=== PATIENT | male | born 1980 | race African-American/Black ===

== ENCOUNTER 2019-11-07 18:17 | Inpatient (IN) ==
[2019-11-07] MEDS ORDERED: SODIUM CHLORIDE 0.9% 1000ML 500 ML IV ONE (18:25)
[2019-11-07] MEDS ORDERED: ONDANSETRON INJ 2 MG/ML 2 ML VIAL IV STA (18:25)
[2019-11-07] MEDS ORDERED: HEPARIN (PORCINE) 1000 UNIT/ML 10 ML (CATH LAB USE ONLY) ONE (18:26)
[2019-11-07] MEDS ORDERED: NiCARDipine HCL INJ 2.5 MG/ML 10 ML AMP ONE (18:26)
[2019-11-07] MEDS ORDERED: fentaNYL citrate 100 MCG/2 ML VIAL ONE (18:26)
[2019-11-07] MEDS ORDERED: MIDAZOLAM HCL 1 MG/ML 2ML VIAL ONE (18:27)
[2019-11-07 18:37] LABS: Basophils # (auto) 0.02 K/uL (0-0.2); Basophils % (auto) 0.1 %; Eosinophils # (auto) 0.02 K/uL (0-0.5); Eosinophils % (auto) 0.1 %; Hemoglobin 16.9 g/dL (14.0-18.0); Immature Granulocytes # (auto) 0.06 K/uL (0.00-0.02); Immature Granulocytes % (auto) 0.4 %; Lymphocytes # (auto) 1.51 K/uL (1.2-3.4); Lymphocytes % (auto) 9.2 %; Mean Corpuscular Hgb Conc 35.2 g/dL (32-36); Mean Corpuscular Volume 85.1 fL (80-100); Mean Platelet Volume 9.9 fL (7.4-10.4); Monocytes # (auto) 1.97 K/uL (0.11-0.59); Neutrophils # (auto) 12.88 K/uL (1.4-6.5); Neutrophils % (auto) 78.2 %; Platelet Count 277 K/uL (130-400); RDW Coefficient of Variation 12.5 % (11.5-14.5); RDW Standard Deviation 38.5 fL (36.4-46.3); Red Blood Count 5.64 M/uL (4.7-6.1); White Blood Count 16.46 K/uL (4.8-10.8)
--- NOTE | 2019-11-07 18:40 | Emergency Department Note ---
Entered by Maci Thomas acting as a scribe for History of Present Illness General Chief complaint: Heart Alert Stated complaint: HEART ALERT Source: patient and EMS History of Present Illness Onset (ago): hour(s) (just prior to arrival) Location: head (general) Pain Consistency: + other (episode ) Quality: + other (syncope ) Associated symptoms: + diaphoresis, + nausea/vomiting (positive nausea; negative vomiting) and + other (positive dizziness; positive right lower abdominal pain; positive thirsty) Treatments prior to arrival: aspirin The patient is a 39 year old male who presents to the Emergency Room with complaints of an episode of syncope that occurred just prior to arrival. The patient states that he was standing in line when he began to feel dizzy and nauseous just prior to this episode. The patient states that he was sweating at the time of this episode. He reports having persistent right lower abdominal pain over the past 3 days. The patient rates this at a 2/10 currently and states that nothing relieves or exacerbates his pain. He denies chest pain and shortness of breath prior to, during, or after his episode of syncope. Per EMS, the patient's blood pressure was 74/P but state that during transport his blood pressure has been around 100 systolic. EMS reports that the patient received 324mg of Aspirin just prior to arrival. The patient states that he is currently very thirsty. Home Medications Home Medications Medication Instructions Recorded Confirmed Type aspirin [Aspir-81] 81 mg PO DAILY 11/07/19 11/07/19 History atorvastatin 80 mg PO HS 11/07/19 11/07/19 History clopidogrel [Plavix] 75 mg PO DAILY 11/07/19 11/07/19 History metoprolol tartrate 25 mg PO BID 11/07/19 11/07/19 History Allergies Allergy/AdvReac Type Severity Reaction Status Date / Time No Known Allergies Allergy Unverified 11/07/19 19:28 Past Med/Surg History Medical History (Updated 11/07/19 @ 20:08 by Maci Thomas) Abnormal EKG (Acute) Acute anterior wall CT (Acute) Acute CT, lateral wall (Acute) Chest pain (Acute) Elevated troponin (Acute) Surgical History H/O cardiac catheterization Hx of heart artery stent Social History Preferred Language: [place] Citizen Communication Ability: Effective Manufacturing Director Required: No Beliefs That Will Affect Care: None Current Living Situation: Other Current Living Situation Comment: [facility] Other Information That Helps Us Care for You: No Feels Safe at Home: Yes Safety Concerns: Feels Safe At This Time Smoking Status: Never smoker Hx Alcohol Use: No Hx Substance Use: No Review of Systems See HPI for pertinent positives & negatives. and A total of 10 systems reviewed and were otherwise negative Physical Exam Vital Signs Vital Signs - 24 hr 11/07/19 18:26 11/07/19 18:27 11/07/19 18:30 Temperature 37.4 C Temperature Source Oral Pulse Rate 79 78 82 Pulse Rate [Finger] Pulse Rate from SpO2 Sensor 79 83 Pulse Strength Normal Respiratory Rate 25 H 20 15 Respiratory Effort / Characteristics Non-Labored Respiratory Depth Normal Blood Pressure 112/84 112/84 Blood Pressure [Right Arm] Blood Pressure Mean 93 95 Blood Pressure Mean [Right Arm] Blood Pressure Position Sitting Pulse Oximetry 99 98 99 Oxygen Delivery Method Room Air Room Air Room Air Sepsis Recent Fever Within 48 Hours No Sepsis Action Taken by Nursing No Action Required 11/07/19 18:31 11/07/19 18:41 11/07/19 18:51 Temperature Temperature Source Pulse Rate 71 64 66 Pulse Rate [Finger] Pulse Rate from SpO2 Sensor 73 63 Pulse Strength Respiratory Rate 14 14 12 Respiratory Effort / Characteristics Respiratory Depth Blood Pressure Blood Pressure [Right Arm] Blood Pressure Mean Blood Pressure Mean [Right Arm] Blood Pressure Position Pulse Oximetry 100 98 Oxygen Delivery Method Room Air Room Air Room Air Sepsis Recent Fever Within 48 Hours Sepsis Action Taken by Nursing 11/07/19 18:52 11/07/19 19:00 11/07/19 19:01 Temperature Temperature Source Pulse Rate 68 70 73 Pulse Rate [Finger] Pulse Rate from SpO2 Sensor 68 66 70 Pulse Strength Respiratory Rate 13 16 13 Respiratory Effort / Characteristics Respiratory Depth Blood Pressure 135/84 132/91 Blood Pressure [Right Arm] Blood Pressure Mean 94 102 Blood Pressure Mean [Right Arm] Blood Pressure Position Pulse Oximetry 100 100 100 Oxygen Delivery Method Room Air Room Air Room Air Sepsis Recent Fever Within 48 Hours Sepsis Action Taken by Nursing 11/07/19 19:36 11/07/19 20:20 Temperature Temperature Source Pulse Rate Pulse Rate [Finger] 77 76 Pulse Rate from SpO2 Sensor Pulse Strength Respiratory Rate 17 16 Respiratory Effort / Characteristics Respiratory Depth Blood Pressure Blood Pressure [Right Arm] 140/80 125/74 Blood Pressure Mean Blood Pressure Mean [Right Arm] 100 91 Blood Pressure Position Pulse Oximetry 99 99 Oxygen Delivery Method Room Air Room Air Sepsis Recent Fever Within 48 Hours Sepsis Action Taken by Nursing GENERAL: Patient is in no acute distress. HEENT: No acute trauma, normocephalic atraumatic, mucous membranes dry, no nasal congestion, no scleral icterus. NECK: No stridor, no adenopathy, no meningismus, trachea is midline. LUNGS: Clear to auscultation bilaterally, no wheeze, no rhonchi, breath sounds equal. HEART: Without murmurs gallops or rubs, regular rate and rhythm. ABDOMEN: Soft, nontender, bowel sounds positive, no hernias, no peritonitis. EXTREMITIES: No cyanosis or edema, full range of motion of all the joints without pain or difficulty, no signs for acute trauma. NEUROLOGIC: Oriented x 3, no acute motor or sensory deficits, no focal weakness. SKIN: No rash, no jaundice, no diaphoresis. Course Course 1811: I discussed the case with Dr. Tate, after picking up the command call, who states that he will come evaluate the patient upon his arrival. 1816: Past medical records reviewed. The patient was evaluated in room A1. A complete history and physical exam was performed. The patient was seen in the ED on 10/30/19 but was transferred to [facility] as our laborer starch factory was not operable. The patient was diagnosed with an acute CT while here. 1825: I discussed the case with Dr. Tate who recommends keeping the patient in the hospital overnight to observe and trend his enzymes. He states that the patient is not a candidate for the laborer starch factory currently. 1954: I discussed the case with Dr. Tate who recommends anticoagulation. 1999: I talked to the patient and updated him on the plan. The guards at bedside are aware that the patient will be staying in the hospital for further ev aluation. 2008[facility]. 2099: I [facility] who [facility] the patient for further evaluation. Administered Medications Heparin Sodium/Dextrose (Heparin Sodium/Dextrose) 25,000 units in 500 mls @ 33 mls/hr IV .[id number] JULES; Protocol Stop: 12/07/19 19:59 Last Titration: 11/07/19 23:00 Dose: 1,650 units/hr, 33 mls/hr Documented by: [id number] Cosigned by: [id number] Admin: 11/07/19 20:12 Dose: 1,650 units/hr, 33 mls/hr Documented by: [id number] Cosigned by: [id number] Ioversol (Optiray 320 100ml) 94 ml IV ONCE PRN PRN Reason: Interaction Checking Stop: 11/11/19 19:28 Last Admin: 11/07/19 19:29 Dose: 94 ml Documented by: [id number] Discontinued Medications Fentanyl Citrate (Fentanyl Citrate) Confirm Administered Dose 100 mcg .ROUTE .STK-MED ONE Stop: 11/07/19 18:27 Last Admin: 11/07/19 18:44 Dose: Not Given Documented by: [id number] Heparin Sodium (Porcine) (Heparin Iv Bolus ([facility] Use Only)) Confirm Administered Dose 10,000 units .ROUTE .STK-MED ONE Stop: 11/07/19 18:27 Last Admin: 11/07/19 18:44 Dose: Not Given Documented by: [id number] Heparin Sodium (Porcine) (Heparin Iv Bolus) Confirm Administered Dose 10,000 units .ROUTE .STK-MED ONE Stop: 11/07/19 20:04 Last Admin: 11/07/19 20:16 Dose: 7,000 units Documented by: [id number] Cosigned by: [id number] Heparin Sodium/Dextrose () 1 ea IV NOW STA; Protocol Stop: 11/07/19 19:56 Last Admin: 11/07/19 20:45 Dose: Not Given Documented by: [id number] Sodium Chloride (Nss 1000ml) 500 mls @ 999 mls/hr IV .Q31M ONE Stop: 11/07/19 18:55 Last Infusion: 11/07/19 19:20 Dose: 0 mls/hr Documented by: [id number] Admin: 11/07/19 18:43 Dose: 999 mls/hr Documented by: [id number] Midazolam HCl (Versed) Confirm Administered Dose 2 mg .ROUTE .STK-MED ONE Stop: 11/07/19 18:28 Last Admin: 11/07/19 18:44 Dose: Not Given Documented by: [id number] Morphine Sulfate (Morphine Sulfate) 4 mg IV NOW STA Stop: 11/07/19 20:41 Last Admin: 11/07/19 20:44 Dose: 4 mg Documented by: [id number] Nicardipine HCl (Cardene) Confirm Administered Dose 25 mg .ROUTE .STK-MED ONE Stop: 11/07/19 18:27 Last Admin: 11/07/19 18:44 Dose: Not Given Documented by: [id number] Ondansetron HCl (Zofran) 4 mg IV NOW STA Stop: 11/07/19 18:26 Last Admin: 11/07/19 18:43 Dose: 4 mg Documented by: [id number] Critical Care Time Critical Care Time: Yes Total Critical Care Time: 46 I have personally spent 46 minutes of critical care time in the direct management of this patient. This includes bedside care, interpretation of diagnostic studies, and testing, discussion with consultants, patient, and family members, and other required patient management activities. This 46 minutes is in excess of all separately billable procedures. Medical Decision Making Differential Diagnosis Differential diagnoses include dehydration, CT, angina, electrolyte imbalance, anemia, dysrhythmia, infection, and others were considered. Medical Records Attestation: I reviewed the patient's medical records. Home Medications Current Medication List: was personally reviewed by me Laboratory Data Attestation: I reviewed the patient's lab results. Result diagrams: 11/07/19 18:29 11/07/19 18:28 Lab Results 11/07/19 11/07/19 11/07/19 Range/Units 18:28 18:28 18:29 WBC 16.46 H (4.8-10.8) K/uL RBC 5.64 (4.7-6.1) M/uL Hgb 16.9 (14.0-18.0) g/dL POC Hgb (14.0-18.0) g/dl Hct 48.0 (42-52) % POC Hct (42-52) % MCV 85.1 (80-100) fL MCH 30.0 (25-34) pg MCHC 35.2 (32-36) g/dL RDW Std Deviation 38.5 (36.4-46.3) fL RDW Coeff of Nic 12.5 (11.5-14.5) % Plt Count 277 (130-400) K/uL MPV 9.9 (7.4-10.4) fL Immature Gran % (Auto) 0.4 % Neut % (Auto) 78.2 % Lymph % (Auto) 9.2 % [place] % (Auto) 12.0 % Eos % (Auto) 0.1 % Baso % (Auto) 0.1 % Immature Gran # (Auto) 0.06 H (0.00-0.02) K/uL Neut # (Auto) 12.88 H (1.4-6.5) K/uL Lymph # (Auto) 1.51 (1.2-3.4) K/uL [place] # (Auto) 1.97 H (0.11-0.59) K/uL Eos # (Auto) 0.02 (0-0.5) K/uL Baso # (Auto) 0.02 (0-0.2) K/uL PT 10.7 (9.0-12.0) Seconds INR 1.0 (0.9-1.1) APTT 21.9 (21.0-31.0) Seconds PTT Ratio 0.8 POC Sodium (135-144) mEq/L Sodium 135 L (136-145) mmol/L POC Potassium (3.3-5.0) mEq/L Potassium 4.0 (3.5-5.1) mmol/L POC Chloride (101-112) mEq/L Chloride 101 (98-107) mmol/L Carbon Dioxide 27 (21-32) mmol/L POC Total CO2 (24-31) mEq/l Anion Gap 7.0 (3-11) POC Anion Gap (16-25) mmol/L POC BUN (7-18) mg/dl BUN 11 (7-18) mg/dl Creatinine 1.17 (0.6-1.4) mg/dl POC Creatinine (0.6-1.3) mg/dl Est Cr Clr Drug Dosing 113.3 ml/min Est GFR ( Amer) 91.8 Est GFR (Non-Af Amer) 79.2 BUN/Creatinine Ratio 9.4 L (10-20) Glucose 104 H (70-99) mg/dl POC Glucose (other) (70-99) mg/dl Calcium 9.2 (8.5-10.1) mg/dl POC Ioniz Calcium Zully (1.12-1.32) mmol/l Magnesium 2.3 (1.8-2.4) mg/dl Total Bilirubin 2.7 H (0.2-1) mg/dl AST 199 H (15-37) U/L ALT 138 H (12-78) U/L Alkaline Phosphatase 81 (45-117) U/L POC Troponin I (0-0.045) ng/ml Troponin I 1.030 H* (0-0.045) ng/ml Total Protein 8.0 (6.4-8.2) gm/dl Albumin 4.0 (3.4-5.0) gm/dl Globulin 4.0 (2.5-4.0) gm/dl Albumin/Globulin Ratio 1.0 (0.9-2) Lipase 123 (73-393) U/L 11/07/19 11/07/19 Range/Units 18:32 18:33 WBC (4.8-10.8) K/uL RBC (4.7-6.1) M/uL Hgb (14.0-18.0) g/dL POC Hgb 16.7 (14.0-18.0) g/dl Hct (42-52) % POC Hct 49 (42-52) % MCV (80-100) fL MCH (25-34) pg MCHC (32-36) g/dL RDW Std Deviation (36.4-46.3) fL RDW Coeff of Nic (11.5-14.5) % Plt Count (130-400) K/uL MPV (7.4-10.4) fL Immature Gran % (Auto) % Neut % (Auto) % Lymph % (Auto) % [place] % (Auto) % Eos % (Auto) % Baso % (Auto) % Immature Gran # (Auto) (0.00-0.02) K/uL Neut # (Auto) (1.4-6.5) K/uL Lymph # (Auto) (1.2-3.4) K/uL [place] # (Auto) (0.11-0.59) K/uL Eos # (Auto) (0-0.5) K/uL Baso # (Auto) (0-0.2) K/uL PT (9.0-12.0) Seconds INR (0.9-1.1) APTT (21.0-31.0) Seconds PTT Ratio POC Sodium 136 (135-144) mEq/L Sodium (136-145) mmol/L POC Potassium 4.0 (3.3-5.0) mEq/L Potassium (3.5-5.1) mmol/L POC Chloride 98 L (101-112) mEq/L Chloride (98-107) mmol/L Carbon Dioxide (21-32) mmol/L POC Total CO2 26 (24-31) mEq/l Anion Gap (3-11) POC Anion Gap 17.0 (16-25) mmol/L POC BUN 11 (7-18) mg/dl BUN (7-18) mg/dl Creatinine (0.6-1.4) mg/dl POC Creatinine 1.0 (0.6-1.3) mg/dl Est Cr Clr Drug Dosing ml/min Est GFR ( Amer) Est GFR (Non-Af Amer) BUN/Creatinine Ratio (10-20) Glucose (70-99) mg/dl POC Glucose (other) 105 H (70-99) mg/dl Calcium (8.5-10.1) mg/dl POC Ioniz Calcium Zully 1.14 (1.12-1.32) mmol/l Magnesium (1.8-2.4) mg/dl Total Bilirubin (0.2-1) mg/dl AST (15-37) U/L ALT (12-78) U/L Alkaline Phosphatase (45-117) U/L POC Troponin I 1.14 H (0-0.045) ng/ml Troponin I (0-0.045) ng/ml Total Protein (6.4-8.2) gm/dl Albumin (3.4-5.0) gm/dl Globulin (2.5-4.0) gm/dl Albumin/Globulin Ratio (0.9-2) Lipase (73-393) U/L Imaging Data Radiologist's Impression: Radiology results as stated below per my review and the radiologist's interpretation: XR chest 1V portable CLINICAL HISTORY: Chest Pain dyspnea COMPARISON STUDY: 10/30/2019 FINDINGS: Improved aeration left lung base. Minimal residual interstitial prominence. Lungs otherwise appear clear. Diaphragms are smooth. IMPRESSION: Improving left basilar infiltrate with minimal residual. ACT 112: Negative or not required by law. The above report was generated using voice recognition software. It may contain grammatical, syntax or spelling errors. Electronically signed by: Varun Preciado M.D. 11/07/2019 6:41 PM [address]EN AND PELVIS CT WITH IV CONTRAST CT DOSE: 955.85 mGy.cm HISTORY: Right lower quadrant pain. TECHNIQUE: Multiaxial CT images of the abdomen and pelvis were performed following the use of intravenous contrast. A dose lowering technique was utilized adhering to the principles of ALARA. COMPARISON STUDY: None. FINDINGS: The lung bases are clear. No pneumoperitoneum. No pneumatosis. No suspicious lytic are blastic osseous lesions. Subendocardial hypodensity within the left ventricular apex consistent with an old myocardial infarct. There are 2 small hypodense filling defects within the apex of the left ventricle which measure 1 cm. These are consistent with 2 cm and 1 cm. These are consistent with areas of thrombus. The liver, gallbladder, pancreas, spleen, adrenal glands, and left kidney are unremarkable. Wedge-shaped hypodensity within the upper pole of the right kidney consistent with a renal infarct. The renal arteries and veins appear patent. Normal caliber abdominal aorta with no evidence for dissection. The bladder is unremarkable. No pelvic free fluid. No bowel wall thickening or o bstruction. Normal appendix. IMPRESSION: 1. There are 2 filling defects seen within the apex of the left ventricle consistent with thrombus. 2. There is an infarct within the upper pole of the right kidney which is likely secondary to an embolus given the left ventricular thrombus. 3. Subacute endocardial hypodensity within the left ventricular apex suggestive of an old myocardial infarct. ACT 112: Negative or not required by law. Electronically signed by: Bobby Adams M.D. 11/07/2019 7:47 PM ECG Data Attestation: I personally reviewed and interpreted this ECG as follows: Indication: + abdominal pain Rate (beats per minute): 73 Rhythm: + normal sinus ECG Intervals/blocks: + Normal QT-c (381) ECG ST segments: + ST elevation (anterior leads) ECG Findings: + Q waves (anterior leads) and + Other (no reciprocal changes); no PVCs Blood Pressure Blood Pressure Findings: Elevated blood pressure Blood Pressure Disposition: further management by hospitalist [facility] Narrative There is a moderate leukocytosis at 16,000, this could be consistent with infection or just his syncopal event. No anemia. He has a normal platelet count. No coagulopathy. No significant electrolyte abnormality or kidney janet lure. There were a few liver enzyme elevations. Troponin was elevated at 1.030. This could be consistent with a new CT or his recent CT. Cardiac enzyme trending is necessary. Lipase testing returned negative. Chest film does not show CHF, there was no significant mediastinal widening. Abdominal and pelvis CT shows a right renal infarct as well as a clot within the left ventricle. There is no acute surgical process by CT imaging. The patient was in no significant distress. His biggest complaint was that he was thirsty. He did say he had noticed some right lower quadrant abdominal pain that was minimal in severity over the last few days. The patient received IV saline, he was given a 500 cc saline bolus. He was given IV Zofran for nausea. He was given a bolus of heparin and then placed on a heparin drip. A prehospital heart alert was called based on the initial EKG. After talking with the patient, after discussing things with the on-call automotive service porter, the patient was not felt in need of transfer to the [facility]. The findings on EKG were felt secondary to the recent CT, not a new/acute CT. I did discuss the case with cardiology after the findings of the left ventricu lar clot were noted. IV heparin was suggested. The patient requires a hospital stay. I spoke to the patient and the [facility] guards. Case management has been involved. The on-call hospitalist was c onsulted. Of note, the patient was initially hypotensive prehospital, his blood pressure has been adequate during his ED stay. Impression & Plan Hypotension, Syncope, Left ventricular thrombus, Renal infarct Discharge Plan Visit Data *Final* Discharge Date/Time: 11/07/19 22:15 Chief Complaint: Heart Alert Stated Complaint: HEART ALERT ED Provider: Brian Rockwell Discharge Problem: Hypotension, Syncope, Left ventricular thrombus, Renal infarct Patient Disposition: Admitted As Inpatient Discharge Instructions Interventions: ED Discharge Assessment Last Done: 11/07/19 22:15 Discharge Problem: Hypotension Qualifiers: Hypotension type: unspecified hypotension type Qualified Code(s): I95.9 - Hypotension, unspecified Syncope Qualifiers: Syncope type: unspecified Qualified Code(s): R55 - Syncope and collapse The scribe's documentation has been prepared under my direction and personally reviewed by me in its entirety. I confirm that the note above accurately reflects all work, treatment, procedures, and medical decision making performed by me.
--- NOTE | 2019-11-07 18:43 | XRay Report ---
XR chest 1V portable CLINICAL HISTORY: Chest Pain dyspnea COMPARISON STUDY: 10/30/2019 FINDINGS: Improved aeration left lung base. Minimal residual interstitial prominence. Lungs otherwise appear clear. Diaphragms are smooth. IMPRESSION: Improving left basilar infiltrate with minimal residual. ACT 112: Negative or not required by law. The above report was generated using voice recognition software. It may contain grammatical, syntax or spelling errors. Electronically signed by: Varun Preciado M.D. 11/07/2019 6:41 PM
[2019-11-07 18:48] LABS: Partial Thromboplastin Ratio 0.8; Partial Thromboplastin Time 21.9 Seconds (21.0-31.0); Prothrombin Time 10.7 Seconds (9.0-12.0)
[2019-11-07 18:48] LABS: iSTAT Hemoglobin 16.7 g/dl (14.0-18.0); iSTAT Ionized Calcium 1.14 mmol/l (1.12-1.32)
[2019-11-07 18:55] LABS: BUN Creatinine Ratio 9.4 (10-20); Calcium 9.2 mg/dl (8.5-10.1); Creatinine Clr Calc Pharmacy 113.3 ml/min; Est GFR (African American) 91.8; Est GFR (Non-African American) 79.2; Magnesium 2.3 mg/dl (1.8-2.4)
[2019-11-07 19:00] LABS: Bilirubin,Total 2.7 mg/dl (0.2-1); Troponin I 1.03 ng/ml (0-0.045)
[2019-11-07] MEDS ORDERED: IOVERSOL 100ml IV PRN (19:29)
--- NOTE | 2019-11-07 19:49 | CT Scan Report ---
ABDOMEN AND PELVIS CT WITH IV CONTRAST CT DOSE: 955.85 mGy.cm HISTORY: Right lower quadrant pain. TECHNIQUE: Multiaxial CT images of the abdomen and pelvis were performed following the use of intrave nous contrast. A dose lowering technique was utilized adhering to the principles of ALARA. COMPARISON STUDY: None. FINDINGS: The lung bases are clear. No pneumoperitoneum. No pneumatosis. No suspicious lytic are lit tic osseous lesions. Subendocardial hypodensity within the left ventricular apex consistent with an o ld myocardial infarct. There are 2 small hypodense filling defects within the apex of the left ventri villa which measure 1 cm. These are consistent with 2 cm and 1 cm. These are consistent with areas of t hrombus. The liver, gallbladder, pancreas, spleen, adrenal glands, and left kidney are unremarkable. Wedge-shaped hypodensity within the upper pole of the right kidney consistent with a renal infarct. T he renal arteries and veins appear patent. Normal caliber abdominal aorta with no evidence for dissec tion. The bladder is unremarkable. No pelvic free fluid. No bowel wall thickening or obstruction. Nor mal appendix. IMPRESSION: 1. There are 2 filling defects seen within the apex of the left ventricle consistent with thrombus. 2. There is an infarct within the upper pole of the right kidney which is likely secondary to an embo phillip given the left ventricular thrombus. 3. Subacute endocardial hypodensity within the left ventricular apex suggestive of an old myocardial infarct. ACT 112: Negative or not required by law. Electronically signed by: Bobby Adams M.D. 11/07/2019 7:47 PM
[2019-11-07] MEDS ORDERED: HEPARIN SOD (PORCINE) 1000 UNIT/ML 10 ML VIAL ONE (20:03)
[2019-11-07] MEDS: HEPARIN SODIUM/DEXTROSE 25,000 UNITS/500 ML BAG IV SCH (20:12)
[2019-11-07] MEDS ORDERED: MoRPHine SULFATE 4 MG/ML 1 ML CARP\\VIAL IV STA (20:40)
[2019-11-07] MEDS ORDERED: POLYETHYLENE (MIRALAX) 17 GM PACK PO PRN (22:37)
[2019-11-07] MEDS: METOPROLOL TARTRATE 25 MG TAB PO SCH (23:55)
[2019-11-07] MEDS: ACETAMINOPHEN 325 MG TAB PO PRN ×2 (23:56→23:57)
[2019-11-08] MEDS ORDERED: SODIUM CHLORIDE 0.9% 1000ML 1,000 ML IV SCH (00:45)
--- NOTE | 2019-11-08 00:46 | History & Physical Report ---
Date of Service November 08, 2019 Assessment & Plan (1) Left ventricular thrombus: 39-year-old male with a recent anterior wall CO presents to the hospital following a syncopal episode and was incidentally found to have right renal infarct likely secondary to emboli from a left ventricular thrombus. On arrival to the emergency room, the patient was found to have ST elevations with Q waves in the anterior lateral leads and elevated troponin at 1.03. Heart alert was called. The patient was evaluated by Dr. Alarcon who thought that the EKG represented chronic changes from his CO. The original plan was to admit the patient on observation and continue to trend troponin, but the patient was also complaining of right lower quadrant pain and the emergency room physician obtained a CT scan of the abdomen/chest. CT scan showed infarction of the right kidney and a left ventricular thrombus. Patient was started on IV heparin. The thrombus is thought to be secondary to recent CO. Patient also has a mild fever and leukocytosis in the setting of viral GI symptoms. Left ventricular thrombus status post recent CO Patient started IV heparin to prevent further embolic events We will hold off on echocardiogram since the thrombus is clearly evident on CT, although it is reasonable to assess in the setting of syncope recent CO. Will defer to day team Cardiology consulted, appreciate recommendations Renal infarct IV heparin as above, follow BMP Recent CO Continue clopidogrel, simvastatin, metoprolol and aspirin Continue to trend troponin Syncopal episode Syncopal episode was likely related to dehydration in the setting of viral symptoms Received 500 cc bolus in the ED, continue maintenance rate of 100 cc/h Transaminitis We will obtain hepatitis panel, HIV testing Consider right upper quadrant ultrasound to rule out gallbladder pathology Reasonable to consider portal vein thrombosis Fever, leukocytosis, GI symptoms Likely viral illness, but considering presence of emboli, would consider bacteremia and will empirically treat with ceftriaxone 2 g/day Obtained blood cultures, follow CBC Continue gentle hydration VT prophylaxis IV heparin CODE STATUS Full (2) Renal infarct: (3) Syncope: (4) Acute anterior wall CO: (5) Elevated troponin: (6) Abnormal EKG: History of Present Illness Primary Care Provider: CHRISTA River 39-year-old male from [place] with no significant past medical history until a anterior wall CO recently on [place] presents with syncopal episode. States that it was occurred this afternoon while standing in line. He said prior to passing out he felt dizzy, flushed, diaphoretic. He denied any chest pain or shortness of breath or acute lower extremity swelling. He states that he has had nausea and vomiting over the past 3 days. He also complains of right lower abdominal pain. Patient denies a family history of heart disease. He denies personal history of diabetes, hypertension or hyperlipidemia. He was a non-smoker. Patient denies history of intravenous drug use or other illicit drug use. Patient denies a history of HIV or hepatitis. Allergies Allergy/AdvReac Type Severity Reaction Status Date / Time No Known Allergies Allergy Unverified 11/07/19 19:28 Home Medications Home Medications Medication Instructions Recorded Confirmed Type aspirin [Aspir-81] 81 mg PO DAILY 11/07/19 11/07/19 History atorvastatin 80 mg PO HS 11/07/19 11/07/19 History clopidogrel [Plavix] 75 mg PO DAILY 11/07/19 11/07/19 History metoprolol tartrate 25 mg PO BID 11/07/19 11/07/19 History Past Med/Surg History Medical History (Updated 11/08/19 @ 09:41 by Pernell Alarcon MD) Abnormal EKG (Acute) Acute anterior wall CO (Acute) Acute CO, lateral wall (Acute) Chest pain (Acute) Elevated troponin (Acute) Surgical History H/O cardiac catheterization Hx of heart artery stent Social History Preferred Language: Romanian 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 Required: No Beliefs That Will Affect Care: None Current Living Situation: Other Current Living Situation Comment: [facility] Other Information That Helps Us Care for You: No Feels Safe at Home: Yes Safety Concerns: Feels Safe At This Time Smoking Status: Never smoker Hx Alcohol Use: No Hx Substance Use: No Review of Systems Constitutional: + fever, + fatigue and + weakness; no sweats Ear, Nose, Mouth, Throat: no ear pain, no nasal congestion, no nasal obstruction and no sore throat Respiratory: no cough, no chest congestion and no dyspnea Cardiovascular: no chest pain, no palpitations and no edema Gastrointestinal: + abdominal pain, + nausea and + vomiting; no diarrhea/loose stools Genitourinary: no dysuria Physical Exam Constitutional: WD/WN, vitals as above Eyes: PERRL, conjunctivae normal, anicteric sclerae ENMT: external ear and nose normal, oropharynx normal Neck: trachea midline, no thyromegaly Respiratory: normal respiratory effort, lungs clear to auscultation Cardiovascular: RRR, no murmur, no edema Gastrointestinal (Abdomen): normal bowel sounds, soft, nontender, no hepatosplenomegaly Musculoskeletal: no cyanosis or clubbing, extremities motor strength 5/5 Skin: no rashes, warm and dry Neurologic: PERRL, EOMI, accommodation nl, no face palsy, no dysarthria Psychiatric: A+Ox3, euthymic affect Results & Data Vital Signs (Past 12 Hours) Vital Signs Temp Pulse Pulse Resp BP BP BP 11/07/19 22:50 74 11/07/19 22:39 37.7 C H 72 13 128/85 11/07/19 22:00 69 20 123/71 11/07/19 20:20 76 16 125/74 11/07/19 19:36 77 17 140/80 11/07/19 19:01 73 13 11/07/19 19:00 70 16 132/91 11/07/19 18:52 68 13 135/84 11/07/19 18:51 66 12 11/07/19 18:41 64 14 11/07/19 18:31 71 14 11/07/19 18:30 82 15 112/84 11/07/19 18:27 37.4 C 78 20 112/84 11/07/19 18:26 79 25 H Pulse Ox 11/07/19 22:50 11/07/19 22:39 99 11/07/19 22:00 98 11/07/19 20:20 99 11/07/19 19:36 99 11/07/19 19:01 100 11/07/19 19:00 100 11/07/19 18:52 100 11/07/19 18:51 11/07/19 18:41 98 11/07/19 18:31 100 11/07/19 18:30 99 11/07/19 18:27 98 11/07/19 18:26 99 Code Status & VTE Plan VTE Prophylaxis Plan VTE Prophylaxis will be ordered: Yes Supervising Physician Co-Signing Physician Notes Attending addendum: I have physically seen this patient, have supervised the medical residents activities, and agree with the H&P unless as otherwise noted. Assessment and Plan: Left ventricular thrombus/status post recent CO- The patient will be admitted to telemetry for serial cardiac enzymes, serial EKG's, and cardiac rhythm monitoring. Continue heparin drip begun in the ED. Continue clopidogrel, metoprolol and aspirin. Consult cardiology Dr. Alarcon. Right renal infarct- Presumptively secondary to embolism from LV thrombus. IV heparin as noted above. Syncopal episode- Continue IV fluid resuscitation. Remaining orders and notations as noted. Resident Activity Tracking Resident Involvement: Resident Care Provided Care Provided: Adult Hospital Medicine (1) Syncope Syncope type: unspecified Qualified Code(s): R55 - Syncope and collapse
[2019-11-08 03:09] LABS: Basophils # (auto) 0.02 K/uL (0-0.2); Basophils % (auto) 0.1 %; Eosinophils # (auto) 0.01 K/uL (0-0.5); Eosinophils % (auto) 0.1 %; Hemoglobin 15.1 g/dL (14.0-18.0); Immature Granulocytes # (auto) 0.08 K/uL (0.00-0.02); Immature Granulocytes % (auto) 0.5 %; Lymphocytes # (auto) 2.59 K/uL (1.2-3.4); Lymphocytes % (auto) 14.9 %; Mean Corpuscular Hemoglobin 29.3 pg (25-34); Mean Corpuscular Hgb Conc 35.1 g/dL (32-36); Mean Corpuscular Volume 83.5 fL (80-100); Mean Platelet Volume 10.2 fL (7.4-10.4); Monocytes # (auto) 2.14 K/uL (0.11-0.59); Monocytes % (auto) 12.3 %; Neutrophils % (auto) 72.1 %; Partial Thromboplastin Ratio 2.5; Platelet Count 263 K/uL (130-400); RDW Coefficient of Variation 12.4 % (11.5-14.5); RDW Standard Deviation 37.4 fL (36.4-46.3); Red Blood Count 5.15 M/uL (4.7-6.1); White Blood Count 17.34 K/uL (4.8-10.8)
[2019-11-08 03:17] LABS: INR 1.1 (0.9-1.1); Prothrombin Time 11.5 Seconds (9.0-12.0)
[2019-11-08 03:18] LABS: Albumin Level 3.2 gm/dl (3.4-5.0); BUN Creatinine Ratio 11.2 (10-20); Calcium 8.5 mg/dl (8.5-10.1); Creatinine Clr Calc Pharmacy 137.4 ml/min; Est GFR (African American) 119.6; Est GFR (Non-African American) 103.2; Partial Thromboplastin Time 67.2 Seconds (21.0-31.0)
[2019-11-08 03:21] LABS: Albumin Globulin Ratio 0.8 (0.9-2); Bilirubin,Total 2.6 mg/dl (0.2-1); Globulin 3.8 gm/dl (2.5-4.0)
[2019-11-08 03:28] LABS: Hepatitis B Surface Ab Quant 3.21 mIU/mL (>or=10mIU/mL Immune); Hepatitis B Surface Antibody Non-Immune
[2019-11-08 03:38] LABS: Hepatitis B Surface Antigen Neg (Neg)
[2019-11-08 04:07] LABS: Hepatitis C IgG 13Yrs+Old_Rflx Neg (Neg)
[2019-11-08] MEDS: cefTRIAXone SODIUM 2,000 MG in DEXTROSE 5% 50 ML IV SCH (04:21)
[2019-11-08] MEDS: ASPIRIN 81 MG ECTAB PO SCH (09:30)
[2019-11-08] MEDS: METOPROLOL TARTRATE 25 MG TAB PO SCH ×2 (09:30→21:06)
[2019-11-08] MEDS: ACETAMINOPHEN 325 MG TAB PO PRN ×2 (09:30→18:02)
[2019-11-08] MEDS: CLOPIDOGREL BISULFATE 75 MG TAB PO SCH (09:30)
--- NOTE | 2019-11-08 09:48 | Cardiology Consultation ---
Date of Consultation November 08, 2019 Assessment & Plan (1) Ischemic cardiomyopathy: 2. Coronary artery disease post primary PCI for anterior STEMI 3. Suspected LV thrombus 4. Abdominal pain/renal infarct Patient 9 days out from recent acute anterior IA treated with primary PCI. Now here with right lower quadrant abdominal pain likely secondary to renal infarct in the setting of what appears to be an LV thrombus on CT scan. Echo pending. Otherwise patient is hemodynamically and electrically stable. No recurrent chest pain and troponin is trending down. No evidence of heart failure on exam. Do not feel patient's current pain represents repeat coronary event. Recommendations: Follow-up echo Continue DAPT with aspirin, clopidogrel Continue heparin infusion Long-term will need triple therapy likely with Coumadin. Could consider Eliquis if an option at his facility. Continue current metoprolol. Start lisinopril as BP allows Continue high intensity statin. History of Present Illness Attending Physician: Reinaldo Zarco MD History of Present Illness Mr. Suresh is a 39-year-old [facility] prisoner post anterolateral STEMI on 10/30/20 19 treated at [facility] with primary PCI (details of PCI not available at this time). Prior to this event no prior cardiac history. No family history of premature coronary disease. No other real cardiac risk factors. Discharged on 11/01/2019. Endorses right lower quadrant abdominal pain beginning approximately 3 days ago. No recurrent chest pain. Yesterday while standing in line felt warm all over and passed out. No preceding chest pain, palpitations or shortness of breath. Repeat EKG at facility showed anterior Q waves with residual anterior ST elevations and was transferred back to [facility]. Heart alert was activated in the field. Was seen on arrival. At that time was chest pain- free. EKG again without acute findings. Just endorsed ongoing right lower quadrant abdominal pain. Emergent cardiac catheterization deferred. Initial troponin 1.03, trending down to 0.89. Telemetry unremarkable. Had a CT scan of his abdomen pelvis and suggestion of filling defects in left ventricle consistent with thrombus. Also apparent infarct in right kidney. Renal function stable. No arrhythmia on telemetry overnight. This morning endorses intermittent right lower back pain, continued right lower quadrant pain. Again no chest pain. Allergies Allergy/AdvReac Type Severity Reaction Status Date / Time No Known Allergies Allergy Unverified 11/07/19 19:28 Home Medications Home Medications Medication Instructions Recorded Confirmed Type aspirin [Aspir-81] 81 mg PO DAILY 11/07/19 11/07/19 History atorvastatin 80 mg PO HS 11/07/19 11/07/19 History clopidogrel [Plavix] 75 mg PO DAILY 11/07/19 11/07/19 History metoprolol tartrate 25 mg PO BID 11/07/19 11/07/19 History Patient History Medical History (Updated 11/08/19 @ 09:41 by Pernell Alarcon MD) Abnormal EKG (Acute) Acute anterior wall IA (Acute) Acute IA, lateral wall (Acute) Chest pain (Acute) Elevated troponin (Acute) Surgical History H/O cardiac catheterization Hx of heart artery stent Social History Preferred Language: [place] Communication Ability: Effective Reporting Developer Required: No Beliefs That Will Affect Care: None Current Living Situation: Other Current Living Situation Comment: [facility] Other Information That Helps Us Care for You: No Feels Safe at Home: Yes Safety Concerns: Feels Safe At This Time Smoking Status: Never smoker Hx Alcohol Use: No Hx Substance Use: No Review of Systems Review of Systems: All systems reviewed & are unremarkable except as noted in HPI & below Physical Exam Physical Exam: General: Comfortable, no acute distress HEENT: Sclerae anicteric, mucous membranes moist Lungs: Clear to auscultation bilaterally, no rhonchi or wheezes Cardiac: Regular rate and rhythm, no murmurs. Abdomen: Soft, tender in right lower quadrant and costovertebral angle tenderness. Extremities: Warm, well perfused, no edema. 2+ radial pulses Skin: No rashes or lesions. Neuro: Nonfocal Psych: Alert orient x3, normal affect and mood Results & Data Vital Signs (Past 12 Hours) Vital Signs Temp Pulse Pulse Pulse Resp BP BP 11/08/19 06:00 78 20 106/64 11/08/19 04:00 98.8 F 79 16 109/65 11/08/19 00:00 98.8 F 72 71 15 142/85 H 11/07/19 22:50 74 11/07/19 22:39 99.9 F H 72 13 128/85 11/07/19 22:00 69 20 123/71 Pulse Ox Pulse Ox 11/08/19 06:00 98 11/08/19 04:00 98 11/08/19 00:00 98 98 11/07/19 22:50 11/07/19 22:39 99 11/07/19 22:00 98 PG Care Time/CCT Total # of Minutes Spent Total Time Spent with Patient: Total time spent is greater than 50% in coordination of care (as documented) at patient's floor/unit and/or counseling patient:
[2019-11-08 10:44] LABS: Partial Thromboplastin Time 55.5 Seconds (21.0-31.0)
[2019-11-08] MEDS: HEPARIN SODIUM/DEXTROSE 25,000 UNITS/500 ML BAG IV SCH (11:08)
[2019-11-08] MEDS: OXYCODONE HCL IR 5 MG TAB (IMMEDIATE RELEASE) PO PRN ×2 (13:17→21:08)
--- NOTE | 2019-11-08 16:06 | History & Physical Bridge Note ---
Date of Service November 08, 2019 History & Physical Bridge Note Patient seen and examined today. He reports continued pain in the right flank area. Feeling tired. - Continue heparin gtt -> Will transition to oral agent tomorrow - Continue pain control
[2019-11-08] MEDS: WARFARIN SOD 5 MG TAB PO SCH (18:02)
--- NOTE | 2019-11-08 20:21 | Electrocardiogram Report ---
Test Reason : Blood Pressure : / mmHG Vent. Rate : 073 BPM Atrial Rate : 073 BPM P-R Int : 140 ms QRS Dur : 082 ms QT Int : 346 ms P-R-T Axes : 057 131 061 degrees QTc Int : 381 ms Normal sinus rhythm Low voltage QRS Lateral infarct Anterior infarct Abnormal ECG When compared with ECG of 30-OCT-2019 13:01, Anterior ST elevation has improved Inferior ST/T wave abnormality has improved Confirmed by Roni Ramirez ([id number]) on 11/08/2019 8:20:53 PM Referred By: [facility] Confirmed By:Roni Ramirez
[2019-11-08] MEDS: ATORVASTATIN 40 MG TAB PO SCH (21:06)
[2019-11-09] MEDS: HEPARIN SODIUM/DEXTROSE 25,000 UNITS/500 ML BAG IV SCH ×2 (02:36→19:47)
[2019-11-09] MEDS: OXYCODONE HCL IR 5 MG TAB (IMMEDIATE RELEASE) PO PRN ×5 (02:36→21:17)
--- NOTE | 2019-11-09 03:37 | Billing Data ---
Date of Service November 09, 2019 Coding Level of Care Code 12188 Initial Inpt Care Lvl 3
[2019-11-09] MEDS: cefTRIAXone SODIUM 2,000 MG in DEXTROSE 5% 50 ML IV SCH (04:08)
[2019-11-09 04:50] LABS: Hematocrit (blood only) 40.7 % (42-52); Hemoglobin 14.2 g/dL (14.0-18.0); Mean Corpuscular Hemoglobin 29.6 pg (25-34); Mean Corpuscular Hgb Conc 34.9 g/dL (32-36); Mean Corpuscular Volume 84.8 fL (80-100); Platelet Count 243 K/uL (130-400); RDW Coefficient of Variation 12.5 % (11.5-14.5); RDW Standard Deviation 38.3 fL (36.4-46.3); White Blood Count 15.42 K/uL (4.8-10.8)
[2019-11-09 05:17] LABS: Albumin Level 2.7 gm/dl (3.4-5.0); BUN Creatinine Ratio 10.2 (10-20); Calcium 8.2 mg/dl (8.5-10.1); Creatinine Clr Calc Pharmacy 130.6 ml/min; Est GFR (African American) 112.3; Est GFR (Non-African American) 96.9; Magnesium 1.9 mg/dl (1.8-2.4); Phosphorus 2.2 mg/dl (2.5-4.9); Potassium 3.8 mmol/L (3.5-5.1)
[2019-11-09 05:19] LABS: Albumin Globulin Ratio 0.7 (0.9-2); Bilirubin,Total 2.2 mg/dl (0.2-1); Globulin 3.9 gm/dl (2.5-4.0); Total Protein 6.6 gm/dl (6.4-8.2)
[2019-11-09 07:05] LABS: Partial Thromboplastin Ratio 2.7
[2019-11-09 07:15] LABS: Partial Thromboplastin Time 72.6 Seconds (21.0-31.0)
[2019-11-09] MEDS: METOPROLOL TARTRATE 25 MG TAB PO SCH ×2 (07:35→21:18)
[2019-11-09] MEDS: CLOPIDOGREL BISULFATE 75 MG TAB PO SCH (07:35)
[2019-11-09] MEDS: ASPIRIN 81 MG ECTAB PO SCH (07:35)
[2019-11-09 14:46] LABS: Partial Thromboplastin Ratio 2.2
[2019-11-09 14:53] LABS: Partial Thromboplastin Time 59.5 Seconds (21.0-31.0)
--- NOTE | 2019-11-09 15:54 | Hospitalist Progress Note ---
Date of Service November 09, 2019 Assessment & Plan (1) Left ventricular thrombus: Initially seen on CT a/p on 11/07. Echo on 11/08 showed pedunculated apical thrombus. - Started on heparin gtt - Warfarin started - Will need at least 3 months of anticoagulation - Monitor INR (2) Fever: Having fevers and some concern for viral illness. Concern for bacteremia, so he was started on ceftriaxone. - Blood cultures from 11/07 still negative. - Repeat urine, blood cultures, and CXR on 11/09 given continued fevers. - Continue ceftriaxone for now - Repeat CT a/p tomorrow if he continues to have fevers and no source found. May also be infarcted tissue/inflammatory response. (3) Renal infarct: Presented for right flank pain; found to have an embolic renal infarct. - Pain control - Anticoagulation as above (4) Acute anterior wall AK: Occurred on 10/30/[address] [facility] [place] to the proximal LAD. Echo shows EF 40-45%. - Continue ASA/Plavix - Will need triple therapy for at least a month (5) Syncope: Unknown cause. Patient reports that he was standing in line for food and just woke up on the floor. Concerning for arrhythmia. - Monitor on telemetry (6) Elevated troponin: Trending down from original STEMI. Seen by cardiology without concern for acute incident. - No inpatient needs Subjective Still in significant pain. Reports no fevers/chills, chest pain, shortness of breath, abdominal pain, nausea, or vomiting. Physical Exam Constitutional: WD/WN, vitals as above Eyes: EOM intact bilaterally; no conjunctival abnormality ENMT: external ear and nose normal, oropharynx normal Neck: trachea midline, no thyromegaly normal visual inspection Respiratory: normal respiratory effort, lungs clear to auscultation no respiratory distress Cardiovascular: RRR, no murmur, no edema Gastrointestinal (Abdomen): Inspection/Auscultation: abdomen normal to inspection; abdomen not distended Musculoskeletal: no cyanosis or clubbing, extremities motor strength 5/5 Skin: no rashes, warm and dry Neurologic: moves all extremities and awake Psychiatric: Orientation: alert, oriented to person and cooperative Results & Data Vital Signs (Past 12 Hours) Vital Signs Temp Pulse Pulse Pulse Resp BP BP 11/09/19 15:37 38.1 C H 77 18 11/09/19 13:01 37.7 C H 75 19 11/09/19 12:00 76 16 11/09/19 11:41 78 11/09/19 11:10 72 15 11/09/19 11:09 37.4 C 69 16 115/69 11/09/19 10:09 72 15 119/69 11/09/19 10:00 73 15 11/09/19 09:09 78 14 119/76 11/09/19 08:09 36.9 C 81 16 127/66 11/09/19 07:09 88 17 114/68 11/09/19 04:00 37.9 C H 78 78 17 125/55 L BP Pulse Ox 11/09/19 15:37 127/84 99 11/09/19 13:01 111/73 99 11/09/19 12:00 98 11/09/19 11:41 11/09/19 11:10 99 11/09/19 11:09 100 11/09/19 10:09 99 11/09/19 10:00 99 11/09/19 09:09 98 11/09/19 08:09 98 11/09/19 07:09 99 11/09/19 04:00 99 PG Care Time/CCT Total # of Minutes Spent Total Time Spent with Patient: Total time spent is greater than 50% in coordination of care (as documented) at patient's floor/unit and/or counseling patient: (1) Syncope Syncope type: unspecified Qualified Code(s): R55 - Syncope and collapse
--- NOTE | 2019-11-09 16:14 | Cardiology Progress Note ---
Date of Service November 09, 2019 Assessment & Plan (1) Ischemic cardiomyopathy: - EF 40-45% with apical akinesis 2. Coronary artery disease post primary PCI for anterior STEMI 3. Apical LV thrombus 4. Abdominal pain/renal infarct No recurrent chest pain. Hemodynamically and electrically stable Continue heparin bridge to Coumadin. Coumadin started last night Plan for triple therapy with aspirin, clopidogrel and Coumadin for 3 months. Repeat echo at that time. If thrombus resolved continue on DAPT for 1 year post stent. Continue current beta-rohan, continue high intensity statin Start ELZA as BP allows Subjective Still with right lower quadrant/flank pain. Denies chest pain or significant shortness of breath. Telemetry reviewedno events Review of Systems Review of Systems: All systems reviewed & are unremarkable except as noted in HPI & below Physical Exam Physical Exam: General: Uncomfortable HEENT: Sclerae anicteric Lungs: Clear to auscultation bilaterally, no rhonchi or wheezes Cardiac: Regular rate and rhythm, no murmurs. Abdomen: Soft, diffuse tenderness Extremities: Warm, well perfused, no edema. 2+ radial pulses Skin: No rashes or lesions. Neuro: Nonfocal Psych: Alert orient x3 Results & Data Vital Signs (Past 12 Hours) Vital Signs Temp Pulse Pulse Resp BP BP Pulse Ox 11/09/19 15:37 100.6 F H 77 18 127/84 99 11/09/19 13:01 99.9 F H 75 19 111/73 99 11/09/19 12:00 76 16 98 11/09/19 11:41 78 11/09/19 11:10 72 15 99 11/09/19 11:09 99.3 F 69 16 115/69 100 11/09/19 10:09 72 15 119/69 99 11/09/19 10:00 73 15 99 11/09/19 09:09 78 14 119/76 98 11/09/19 08:09 98.4 F 81 16 127/66 98 11/09/19 07:09 88 17 114/68 99 PG Care Time/CCT Total # of Minutes Spent Total Time Spent with Patient: Total time spent is greater than 50% in coordination of care (as documented) at patient's floor/unit and/or counseling patient:
--- NOTE | 2019-11-09 16:28 | XRay Report ---
XR chest 1V portable CLINICAL HISTORY: Fever COMPARISON STUDY: 11/07/2019 FINDINGS: The cardiac and mediastinal contours are normal. There is no evidence of focal pulmonary co nsolidation. There is no evidence of failure. No pleural effusions are visualized.[ IMPRESSION: No active disease in the chest. ACT 112: Negative or not required by law. Electronically signed by: Colin Welch M.D. 11/09/2019 4:27 PM
[2019-11-09] MEDS: WARFARIN SOD 5 MG TAB PO SCH (16:57)
[2019-11-09 17:20] LABS: Appearance Urine Clear (Clear); Bilirubin Urine Negative (Negative); Blood Urine 3+ (Negative); Color Urine Yellow; Glucose Urine UA Negative (Negative); Ketones Urine 1+ (Negative); Leukocyte Esterase Urine Negative (Negative); Nitrite Urine Negative (Negative); Protein Urine Negative (Negative); Specific Gravity Urine 1.007 (1.000-1.030); Urobilinogen Urine Negative (Negative)
[2019-11-09 17:37] LABS: Bacteria Urine Automated Negative (Negative); Cast Urine Automated 0 /lpf (0-5); Epithelial Cell Urine Auto 0-5 /lpf (0-5)
[2019-11-09] MEDS: ACETAMINOPHEN 325 MG TAB PO PRN (19:47)
[2019-11-09] MEDS: TAMSULOSIN HCL 0.4 MG CAP PO SCH (21:18)
[2019-11-09] MEDS: ATORVASTATIN 40 MG TAB PO SCH (21:18)
[2019-11-10] MEDS: OXYCODONE HCL IR 5 MG TAB (IMMEDIATE RELEASE) PO PRN ×2 (01:11→06:33)
[2019-11-10 07:40] LABS: Hematocrit (blood only) 40.7 % (42-52); Hemoglobin 14.3 g/dL (14.0-18.0); Mean Corpuscular Hemoglobin 29.5 pg (25-34); Mean Corpuscular Hgb Conc 35.1 g/dL (32-36); Mean Corpuscular Volume 83.9 fL (80-100); Mean Platelet Volume 9.9 fL (7.4-10.4); Platelet Count 257 K/uL (130-400); RDW Coefficient of Variation 12.3 % (11.5-14.5); RDW Standard Deviation 37.2 fL (36.4-46.3); Red Blood Count 4.85 M/uL (4.7-6.1); White Blood Count 17.11 K/uL (4.8-10.8)
[2019-11-10 08:05] LABS: Albumin Level 2.5 gm/dl (3.4-5.0); BUN Creatinine Ratio 8.9 (10-20); Calcium 8.8 mg/dl (8.5-10.1); Creatinine Clr Calc Pharmacy 137.6 ml/min; Est GFR (Non-African American) 101.9; Magnesium 2.1 mg/dl (1.8-2.4); Potassium 3.9 mmol/L (3.5-5.1)
[2019-11-10 08:14] LABS: INR 1.3 (0.9-1.1); Partial Thromboplastin Ratio 2.1
[2019-11-10 08:15] LABS: Partial Thromboplastin Time 56.7 Seconds (21.0-31.0)
[2019-11-10 08:19] LABS: Albumin Globulin Ratio 0.6 (0.9-2); Bilirubin,Total 1.4 mg/dl (0.2-1); Globulin 4.4 gm/dl (2.5-4.0); Phosphorus 2.7 mg/dl (2.5-4.9); Total Protein 6.9 gm/dl (6.4-8.2)
[2019-11-10] MEDS: ACETAMINOPHEN 500 MG TAB PO SCH ×2 (09:48→16:23)
[2019-11-10] MEDS: METOPROLOL TARTRATE 25 MG TAB PO SCH ×2 (09:48→20:16)
[2019-11-10] MEDS: OXYCODONE HCL 10 MG TABCR (OXYCONTIN) PO SCH ×2 (09:48→20:15)
[2019-11-10] MEDS: ASPIRIN 81 MG ECTAB PO SCH (09:49)
[2019-11-10] MEDS: CLOPIDOGREL BISULFATE 75 MG TAB PO SCH (09:49)
--- NOTE | 2019-11-10 09:50 | Hospitalist Progress Note ---
Date of Service November 10, 2019 Assessment & Plan (1) Left ventricular thrombus: Initially seen on CT a/p on 11/07. Echo on 11/08 showed pedunculated apical thrombus. - Started on heparin gtt - Warfarin started - Will need at least 3 months of anticoagulation - Monitor INR - On 11/10, it is 1.3. (2) Fever: Having fevers and initially had some concern for viral illness. Concern for bacteremia, so he was started on ceftriaxone. However, renal infarct itself can cause fevers (10% per UpToDate and widely noted in multiple primary sources). Could explain the leukocytosis as well. - Blood cultures from 11/07 & 11/09 are negative as of today (11/10). - UA on 11/09 showed blood (expected in renal infarct), but no sign of infection. - CXR on 11/09 showed no infiltrates. - Ceftriaxone given from admission until 11/10. - Getting a right renal ultrasound today to check for fluid collection or abscess. (3) Renal infarct: Presented for right flank pain; found to have an embolic renal infarct. - Anticoagulation as above - Pain control has been difficult. Starting low-dose OxyContin and standing Tylenol (4) Acute anterior wall SC: Occurred on 10/30/2019 with PCI at [facility] [place] to the proximal LAD. Echo shows EF 40-45%. - Continue ASA/Plavix - Will need triple therapy for at least a month per cardiology. (5) Syncope: Unknown cause. Patient reports that he was standing in line for food and just woke up on the floor. Concerning for arrhythmia, though none seen on telemetry so far. Stroke also possible, though no focal exam findings. - Monitor on telemetry (6) Elevated troponin: Trending down from original STEMI. Seen by cardiology without concern for acute incident. - No inpatient needs (7) DVT prophylaxis: On heparin gtt for thrombus Dispo: Back to [facility] after INR is 2-3. Pain control is an issue. There is n othing but Tylenol at [facility], so I have been trying to be very mild with opiates as these will not be able to be continued on discharge. Subjective Shows no real improvement today. Still with pain in the right side. No appetite. Continues to have fevers. Reports no chest pain, shortness of breath. Physical Exam Constitutional: WD/WN, vitals as above + acute distress and cooperative Eyes: EOM intact bilaterally; no conjunctival abnormality ENMT: external ear and nose normal, oropharynx normal Neck: trachea midline, no thyromegaly normal visual inspection Respiratory: normal respiratory effort, lungs clear to auscultation no respiratory distress Cardiovascular: RRR, no murmur, no edema Gastrointestinal (Abdomen): Inspection/Auscultation: abdomen normal to inspection; abdomen not distended Percussion/Palpation: + abdomen tender (Right flank) and abdomen soft Musculoskeletal: no cyanosis or clubbing, extremities motor strength 5/5 Skin: no rashes, warm and dry Neurologic: moves all extremities and awake Psychiatric: Orientation: alert, oriented to person and cooperative Results & Data Vital Signs (Past 12 Hours) Vital Signs Temp Pulse Pulse Resp BP Pulse Ox 11/10/19 06:57 37.6 C H 89 22 113/76 97 11/10/19 02:49 37.9 C H 82 20 113/72 96 11/09/19 22:46 37.4 C 71 18 103/69 98 PG Care Time/CCT Total # of Minutes Spent Total Time Spent with Patient: Total time spent is greater than 50% in coordination of care (as documented) at patient's floor/unit and/or counseling patient: (1) Syncope Syncope type: unspecified Qualified Code(s): R55 - Syncope and collapse
--- NOTE | 2019-11-10 10:31 | Ultrasound Report ---
ABDOMINAL ULTRASOUND, RIGHT UPPER QUADRANT HISTORY: Right flank pain. Right renal infarct.. COMPARISON: Abdomen and pelvis CT 11/07/2019. FINDINGS: Pancreas: The pancreatic head is obscured by overlying bowel gas. The remaining portions of the pancr eas are within normal limits. Liver: Unremarkable. Gallbladder: No gallbladder wall thickening. No gallstones. CBD: 4 mm. Right kidney: Wedge-shaped hypoechoic area within the right kidney measuring 3 cm. This likely corres ponds to the suspected infarct on the prior CT. No hydronephrosis. IMPRESSION: Wedge-shaped hypoechoic area within the right kidney measuring 3 cm. This likely corresponds to the s uspected infarct on the prior CT. ACT 112: Negative or not required by law. Electronically signed by: Bobby Adams M.D. 11/10/2019 10:29 AM
[2019-11-10] MEDS: HEPARIN SODIUM/DEXTROSE 25,000 UNITS/500 ML BAG IV SCH (13:46)
[2019-11-10] MEDS: WARFARIN SOD 5 MG TAB PO SCH (16:23)
[2019-11-10] MEDS: TAMSULOSIN HCL 0.4 MG CAP PO SCH (20:16)
[2019-11-10] MEDS: ATORVASTATIN 40 MG TAB PO SCH (20:16)
[2019-11-11] MEDS: ACETAMINOPHEN 500 MG TAB PO SCH ×3 (00:07→17:25)
--- NOTE | 2019-11-11 05:58 | Electrocardiogram Report ---
Test Reason : Blood Pressure : / mmHG Vent. Rate : 076 BPM Atrial Rate : 076 BPM P-R Int : 136 ms QRS Dur : 074 ms QT Int : 352 ms P-R-T Axes : 059 113 108 degrees QTc Int : 396 ms Normal sinus rhythm Right axis deviation Low voltage QRS Anterior infarct Possible Lateral infarct T wave abnormality, consider lateral ischemia Abnormal ECG When compared with ECG of 07-NOV-2019 18:21, No significant change Confirmed by Roni Ramirez ([id number]) on 11/11/2019 5:58:10 AM Referred By: [facility] Confirmed By:Roni Ramirez
[2019-11-11] MEDS: HEPARIN SODIUM/DEXTROSE 25,000 UNITS/500 ML BAG IV SCH (07:33)
[2019-11-11 07:49] LABS: Hemoglobin 14.5 g/dL (14.0-18.0); Mean Corpuscular Hemoglobin 29.8 pg (25-34); Mean Corpuscular Hgb Conc 35.4 g/dL (32-36); Mean Corpuscular Volume 84.4 fL (80-100); Mean Platelet Volume 9.6 fL (7.4-10.4); Platelet Count 295 K/uL (130-400); RDW Coefficient of Variation 12.2 % (11.5-14.5); RDW Standard Deviation 37.4 fL (36.4-46.3); Red Blood Count 4.86 M/uL (4.7-6.1); White Blood Count 13.99 K/uL (4.8-10.8)
[2019-11-11 08:09] LABS: INR 1.7 (0.9-1.1); Partial Thromboplastin Ratio 2.5; Prothrombin Time 16.9 Seconds (9.0-12.0)
[2019-11-11 08:10] LABS: Partial Thromboplastin Time 66.9 Seconds (21.0-31.0)
[2019-11-11 08:17] LABS: Albumin Level 2.5 gm/dl (3.4-5.0); BUN Creatinine Ratio 8.2 (10-20); Calcium 9.1 mg/dl (8.5-10.1); Creatinine Clr Calc Pharmacy 128.3 ml/min; Est GFR (African American) 108.3; Est GFR (Non-African American) 93.5; Potassium 4.2 mmol/L (3.5-5.1)
[2019-11-11 08:20] LABS: Albumin Globulin Ratio 0.5 (0.9-2); Bilirubin,Total 1.1 mg/dl (0.2-1); Globulin 4.7 gm/dl (2.5-4.0); Total Protein 7.2 gm/dl (6.4-8.2)
[2019-11-11] MEDS: ONDANSETRON INJ 2 MG/ML 2 ML VIAL IV PRN (09:38)
[2019-11-11] MEDS: CLOPIDOGREL BISULFATE 75 MG TAB PO SCH (10:41)
[2019-11-11] MEDS: METOPROLOL TARTRATE 25 MG TAB PO SCH ×2 (10:41→20:53)
[2019-11-11] MEDS: ASPIRIN 81 MG ECTAB PO SCH (10:42)
[2019-11-11] MEDS: OXYCODONE HCL 10 MG TABCR (OXYCONTIN) PO SCH ×2 (10:43→21:11)
--- NOTE | 2019-11-11 15:34 | Hospitalist Progress Note ---
Date of Service November 11, 2019 Assessment & Plan (1) Left ventricular thrombus: Initially seen on CT a/p on 11/07. Echo on 11/08 showed pedunculated apical thrombus. - Started on heparin gtt - Warfarin started - Will need at least 3 months of anticoagulation - Monitor INR - On 11/10, it is 1.7. Dropped warfarin to 3 mg as INR is going up quickly. (2) Fever: Having fevers and initially had some concern for viral illness. Concern for bacteremia, so he was started on ceftriaxone. However, renal infarct itself can cause fevers (10% per UpToDate and widely noted in multiple primary sources). Could explain the leukocytosis as well. - Ceftriaxone given from admission until 11/10. - Blood cultures from 11/07 & 11/09 are negative as of today (11/11). - UA on 11/09 showed blood (expected in renal infarct), but no sign of infection. - CXR on 11/09 showed no infiltrates. - Right renal ultrasound on 11/10 showed no fluid collection or abscess. (3) Renal infarct: Presented for right flank pain; found to have an embolic renal infarct. - Anticoagulation as above - Pain control has been difficult. Started low-dose OxyContin and standing Tylenol on 11/10. - Pain much improved today. (4) Acute anterior wall [place]: Occurred on 10/30/2019 with PCI at [facility] to the proximal LAD. Echo shows EF 40-45%. - Continue ASA/Plavix - Will need triple therapy for at least a month per cardiology. (5) Urinary retention: On 11/09, he had significant suprapubic discomfort and was unable to urina te. PVR showed 400 mL. Art placed with ~400 mL return of urine. - Started tamsulosin that evening (11/09) - When getting close to discharge, would perform voiding trial (6) Syncope: Unknown cause. Patient reports that he was standing in line for food and just woke up on the floor. Concerning for arrhythmia, though none seen on telemetry so far. Stroke also possible, though no focal exam findings. - Monitor on telemetry -> No events so far this admission. (7) Elevated troponin: Trending down from original STEMI. Seen by cardiology without concern for acute incident. - No inpatient needs (8) DVT prophylaxis: On heparin gtt for thrombus Dispo: Back to [facility] after INR is 2-3. Pain control is an issue. There is nothing but Tylenol at [facility], so I have been trying to be very mild with opiates as these will not be able to be continued on discharge. Physical Exam Constitutional: WD/WN, vitals as above + acute distress and cooperative Eyes: EOM intact bilaterally; no conjunctival abnormality ENMT: external ear and nose normal, oropharynx normal Neck: trachea midline, no thyromegaly normal visual inspection Respiratory: normal respiratory effort, lungs clear to auscultation no respiratory distress Cardiovascular: RRR, no murmur, no edema Gastrointestinal (Abdomen): Inspection/Auscultation: abdomen normal to inspection; abdomen not distended Percussion/Palpation: + abdomen tender (Right flank) and abdomen soft Musculoskeletal: no cyanosis or clubbing, extremities motor strength 5/5 Skin: no rashes, warm and dry Neurologic: moves all extremities and awake Psychiatric: Orientation: alert, oriented to person and cooperative Results & Data Vital Signs (Past 12 Hours) Vital Signs Temp Pulse Pulse Resp BP BP Pulse Ox 11/11/19 11:27 37.8 C H 78 18 101/67 97 11/11/19 06:54 37.8 C H 80 18 113/75 97 11/11/19 04:27 37.7 C H 72 16 104/70 100 PG Care Time/CCT Total # of Minutes Spent Total Time Spent with Patient: Total time spent is greater than 50% in coordination of care (as documented) at patient's floor/unit and/or counseling patient: (1) Syncope Syncope type: unspecified Qualified Code(s): R55 - Syncope and collapse
[2019-11-11] MEDS: WARFARIN SOD 5 MG TAB PO SCH (17:25)
[2019-11-11 18:56] LABS: Partial Thromboplastin Time 82.6 Seconds (21.0-31.0)
[2019-11-11] MEDS: TAMSULOSIN HCL 0.4 MG CAP PO SCH (20:53)
[2019-11-11] MEDS: ATORVASTATIN 40 MG TAB PO SCH (20:53)
[2019-11-11] MEDS: OXYCODONE HCL IR 5 MG TAB (IMMEDIATE RELEASE) PO PRN (20:53)
[2019-11-12 02:06] LABS: Hematocrit (blood only) 40.7 % (42-52); Hemoglobin 14.2 g/dL (14.0-18.0); Mean Corpuscular Hemoglobin 29.6 pg (25-34); Mean Corpuscular Hgb Conc 34.9 g/dL (32-36); Mean Platelet Volume 9.7 fL (7.4-10.4); Platelet Count 292 K/uL (130-400); RDW Coefficient of Variation 12.3 % (11.5-14.5); RDW Standard Deviation 37.8 fL (36.4-46.3); Red Blood Count 4.79 M/uL (4.7-6.1); White Blood Count 11.57 K/uL (4.8-10.8)
[2019-11-12 02:32] LABS: INR 1.8 (0.9-1.1); Partial Thromboplastin Ratio 2.3; Prothrombin Time 17.7 Seconds (9.0-12.0)
[2019-11-12 02:33] LABS: Partial Thromboplastin Time 61.8 Seconds (21.0-31.0)
[2019-11-12] MEDS: HEPARIN SODIUM/DEXTROSE 25,000 UNITS/500 ML BAG IV SCH ×2 (02:39→18:03)
[2019-11-12 02:55] LABS: Albumin Globulin Ratio 0.5 (0.9-2); Albumin Level 2.5 gm/dl (3.4-5.0); Bilirubin,Total 0.7 mg/dl (0.2-1); Calcium 8.8 mg/dl (8.5-10.1); Creatinine Clr Calc Pharmacy 124.6 ml/min; Est GFR (African American) 104.6; Est GFR (Non-African American) 90.2; Globulin 4.9 gm/dl (2.5-4.0); Potassium 4.1 mmol/L (3.5-5.1); Total Protein 7.4 gm/dl (6.4-8.2)
[2019-11-12 03:10] LABS: BUN Creatinine Ratio 11.2 (10-20)
[2019-11-12] MEDS: ACETAMINOPHEN 500 MG TAB PO SCH ×2 (04:28→09:04)
[2019-11-12] MEDS: ONDANSETRON INJ 2 MG/ML 2 ML VIAL IV PRN (07:45)
[2019-11-12] MEDS: METOPROLOL TARTRATE 25 MG TAB PO SCH (09:03)
[2019-11-12] MEDS: CLOPIDOGREL BISULFATE 75 MG TAB PO SCH (09:03)
[2019-11-12] MEDS: ASPIRIN 81 MG ECTAB PO SCH (09:03)
[2019-11-12] MEDS: OXYCODONE HCL 10 MG TABCR (OXYCONTIN) PO SCH (09:03)
--- NOTE | 2019-11-12 10:45 | Cardiology Progress Note ---
Date of Service November 12, 2019 Assessment & Plan (1) Ischemic cardiomyopathy: - EF 40-45% with apical akinesis 2. Coronary artery disease post primary PCI for anterior STEMI 3. Apical LV thrombus 4. Abdominal pain/renal infarct No recurrent chest pain. Hemodynamically and electrically stable INR 1.8 From a cardiac standpoint okay with discharge when therapeutic on Coumadin. Plan for triple therapy with aspirin, clopidogrel and Coumadin for 3 months. Repeat echo at that time. If thrombus resolved continue on DAPT for 1 year post stent. Continue current beta-rhoan, continue high intensity statin Try low dose ELZA Subjective Still with some right lower quadrant/flank pain when moves. Pain improved from Tuesday Denies chest pain or significant shortness of breath. Art in place with red-tinged urine Telemetry reviewedno events Review of Systems Review of Systems: All systems reviewed & are unremarkable except as noted in HPI & below Physical Exam Physical Exam: General: Comfortable, no acute distress HEENT: Sclerae anicteric, mucous membranes moist Lungs: Clear to auscultation bilaterally Cardiac: Regular rate and rhythm, no murmurs. Abdomen: Soft, tender right side Extremities: Warm, well perfused, no edema. 2+ radial pulses Skin: No rashes or lesions. Neuro: Nonfocal Psych: Alert orient x3, normal affect and mood Results & Data Vital Signs (Past 12 Hours) Vital Signs Temp Pulse Pulse Pulse Resp BP Pulse Ox 11/12/19 07:11 99.5 F 73 18 106/65 98 11/12/19 03:34 99.7 F H 70 16 107/69 99 11/12/19 03:09 100.0 F H 70 20 106/68 98 11/12/19 00:00 58 L 11/11/19 23:39 99.1 F 62 16 116/77 96 PG Care Time/CCT Total # of Minutes Spent Total Time Spent with Patient: Total time spent is greater than 50% in coordination of care (as documented) at patient's floor/unit and/or counseling patient:
[2019-11-12 13:12] LABS: Partial Thromboplastin Ratio 2.2
[2019-11-12 13:14] LABS: Partial Thromboplastin Time 58.5 Seconds (21.0-31.0)
[2019-11-12] MEDS: WARFARIN SOD 5 MG TAB PO SCH (16:03)
--- NOTE | 2019-11-12 18:39 | Hospitalist Progress Note ---
Date of Service November 12, 2019 Assessment & Plan (1) Left ventricular thrombus: Initially seen on CT a/p on 11/07. Echo on 11/08 showed pedunculated apical thrombus. Secondary to hypokinesis from recent STEMI With right renal infarct, no other evidence of stroke or infarct elsewhere at this time - continue bridging on heparin gtt - continue Warfarin 5mg daily, INR still only 1.8 today - Will need at least 3 months of anticoagulation and then reassessment with ECHO, f/u with Cardiology -appreciate Cardio consultation - Monitor INR in AM (2) Fever: Continues to be having fevers -initially had some concern for viral illness as he was noted to have N/V/D -Concern for bacteremia, so he was started on ceftriaxone. However, renal infarct itself can cause fevers (10% per UpToDate and widely noted in multiple primary sources). Could explain the leukocytosis as well. - Ceftriaxone given from admission until 11/10 Now with persistent fevers and gross hematuria on 11/12 -UA now appears possibly infected--> restart ceftriaxone 11/12 -follow repeat urine cx - Blood cultures from 11/07 & 11/09 are negative -continue to follow - UA on 11/09 showed blood (expected in renal infarct), but no sign of infection. - CXR on 11/09 showed no infiltrates, although he is splinting due to pain and this could also be causing atelectasis and fever--> incentive spirometry and pain control encouraged-he has been hesitant to take oxycodone ER -APAP prn fever - Right renal ultrasound on 11/10 showed no fluid collection or abscess, but if fevers persist tomorrow, will pursue repeat imaging--> Consult Urology for further recommendations -repeat Blood cultures (3) Renal infarct: Presented for right flank pain; found to have an embolic right renal infarct. - Anticoagulation as above - reports feeling nauseated with Oxycontinu se, but not IR oxy -dc Oxycontin and use oxycodone IR prn -continue APAP -with fevers as above -with gross hematuria now (4) Gross hematuria: Developed on 11/12, could be secondary to renal infarct vs Art trauma. Exacerbated by heparin gtt and coumadin use -RN to flush catheter as needed -Consult Urology -continue Art catheter -follow CBC -continue heparin gtt for now given mild hematuria and need to teat LV thrombus (5) Elevated LFTs: Persistently elevated AST and ALT but not severe. TBili was high and is now back to normal No abnormalities on imaging of liver or GB Could be from perhaps fevers or inflammation from renal infarct in proximity? Was also recently started on atorvastatin with recent STEMI--> could be from this although would not cause elevated TBili Hep B and C negative but Hep A not checked-check in AM -follow LFTs -hold statin (6) Acute anterior wall [place]: Occurred on 10/30/2019 with PCI at [facility] to the proximal LAD. Echo shows EF 40-45%. - Continue ASA/Plavix, metoprolol changed to Toprol XL as is on his dc summary from [facility] -hold statin as above for elevated LFTs - Will need triple therapy for at least a month per cardiology. (7) Urinary retention: On 11/09, he had significant suprapubic discomfort and was unable to urinate. PVR showed 400 mL. Art placed with ~400 mL return of urine. - Started tamsulosin that evening (11/09) -now with hematuria as above -could be from opioids -Consult Urology (8) Syncope: Unknown cause. Patient reports that he was standing in line for food and just woke up on the floor. Concerning for arrhythmia, though none seen on telemetry so far. Stroke also possible, though no focal exam findings. - Monitor on telemetry -> No events so far this admission. (9) Elevated troponin: Trending down from original STEMI. Seen by cardiology without concern for acute incident. - No inpatient needs (10) CAD (coronary artery disease), [place] coronary artery: as above, with STEMI 10/30/19 (11) Ischemic cardiomyopathy: EF 40-45% since recent STEMI -switched tartrate to Toprol 25 bid -add lisinopril 2.5mg daily as per Cardio not volume overloaded (12) DVT prophylaxis: On heparin gtt for thrombus, coumadin Dispo: Back to [facility] after INR is 2-3, pain controlled, fevers resolved There is nothing but Tylenol at [facility], so I have been trying to be very mild with opiates as these will not be able to be continued on discharge. Subjective Feeling very tired today, having chills again when I saw him in the evening. Denies cough. Is not mobile at all. Has pain in right flank and right side of abdomen. Developed gross hematuria today and RN reports having a clot that she was able to get to pass and then he had release of 600mL of urine. He denies chest pain or SOB. No joint pains or rashes. No diarrhea. Tele with NSR, rates 50-80s Reports he is not deep breathing because it hurts in his right flank to do so Review of Systems Review of Systems: All systems reviewed & are unremarkable except as noted in HPI & below Physical Exam Constitutional: WD/WN, vitals as above (lying in bed, seems drowsy but awake and alert for questioning) Eyes: + anicteric sclerae Neck: trachea midline, no thyromegaly Respiratory: normal respiratory effort, lungs clear to auscultation (with poor inspiratory effort) Auscultation: lungs clear to auscultation bilaterally Cardiovascular: RRR, no murmur, no edema Chest (Breasts): Chest: normal inspection of chest Gastrointestinal (Abdomen): Inspection/Auscultation: abdomen normal to inspection and normal bowel sounds; abdomen not distended Percussion/Palpation: + abdomen tender (Right mid abdomen and flank, no guarding or rebound) and abdomen soft Musculoskeletal: Extremities: extremities normal to inspection; no cyanosis and no clubbing Skin: no rashes, warm and dry Neurologic: moves all extremities and awake; no focal motor deficits Psychiatric: Orientation: alert, oriented to person, oriented to place, oriented to time and cooperative Eye Contact: good eye contact Speech: normal rate/rhythm/volume of speech Affect: + flat affect Genitourinary: Art catheter with kimble red urine Lymphatic: no lymphedema Results & Data Vital Signs (Past 12 Hours) Vital Signs Temp Pulse Pulse Resp BP Pulse Ox 11/12/19 15:40 37.9 C H 76 16 127/82 99 11/12/19 11:02 37.3 C 62 18 107/70 98 11/12/19 08:00 72 11/12/19 07:11 37.5 C 73 18 106/65 98 Laboratory Results labs reviewed BCxs no growth INR 1.8 PG Care Time/CCT Total # of Minutes Spent Total Time Spent with Patient: Total time spent is greater than 50% in coordination of care (as documented) at patient's floor/unit and/or counseling patient: (1) Syncope Syncope type: unspecified Qualified Code(s): R55 - Syncope and collapse
[2019-11-12 19:02] LABS: Bacteria Urine Automated Negative (Negative); Bilirubin Urine Negative (Negative); Blood Urine 3+ (Negative); Color Urine Red; Glucose Urine UA Negative (Negative); Ketones Urine Negative (Negative); Leukocyte Esterase Urine Trace (Negative); Nitrite Urine Negative (Negative); Protein Urine 2+ (Negative); RBC Urine Automated >30 /hpf (0-4); Specific Gravity Urine 1.013 (1.000-1.030); Urobilinogen Urine Negative (Negative); pH Urine 6.5 (4.5-7.5)
[2019-11-12 19:18] LABS: Appearance Urine Cloudy (Clear)
[2019-11-12] MEDS: ACETAMINOPHEN 325 MG TAB PO PRN (20:11)
[2019-11-12] MEDS: TAMSULOSIN HCL 0.4 MG CAP PO SCH (20:11)
[2019-11-12] MEDS: ATORVASTATIN 40 MG TAB PO SCH (20:11)
[2019-11-12] MEDS: METOPROLOL SUCC 25MG EXT REL TAB PO SCH (20:12)
[2019-11-12] MEDS: OXYCODONE HCL IR 5 MG TAB (IMMEDIATE RELEASE) PO PRN (23:52)
[2019-11-13] MEDS: cefTRIAXone SODIUM 2,000 MG in DEXTROSE 5% 50 ML IV SCH (00:19)
[2019-11-13] MEDS: OXYCODONE HCL IR 5 MG TAB (IMMEDIATE RELEASE) PO PRN ×2 (05:59→17:40)
[2019-11-13 06:33] LABS: Basophils # (auto) 0.01 K/uL (0-0.2); Basophils % (auto) 0.1 %; Eosinophils # (auto) 0.19 K/uL (0-0.5); Eosinophils % (auto) 1.7 %; Hematocrit (blood only) 39.5 % (42-52); Hemoglobin 13.5 g/dL (14.0-18.0); Immature Granulocytes # (auto) 0.09 K/uL (0.00-0.02); Immature Granulocytes % (auto) 0.8 %; Lymphocytes # (auto) 1.91 K/uL (1.2-3.4); Lymphocytes % (auto) 16.6 %; Mean Corpuscular Hgb Conc 34.2 g/dL (32-36); Mean Corpuscular Volume 84.8 fL (80-100); Mean Platelet Volume 9.4 fL (7.4-10.4); Monocytes # (auto) 1.63 K/uL (0.11-0.59); Monocytes % (auto) 14.2 %; Neutrophils # (auto) 7.68 K/uL (1.4-6.5); Neutrophils % (auto) 66.6 %; Platelet Count 344 K/uL (130-400); RDW Coefficient of Variation 12.3 % (11.5-14.5); RDW Standard Deviation 37.4 fL (36.4-46.3); Red Blood Count 4.66 M/uL (4.7-6.1); White Blood Count 11.51 K/uL (4.8-10.8)
[2019-11-13 06:58] LABS: INR 1.8 (0.9-1.1); Partial Thromboplastin Ratio 2.4; Prothrombin Time 17.7 Seconds (9.0-12.0)
[2019-11-13 07:09] LABS: Albumin Level 2.3 gm/dl (3.4-5.0); BUN Creatinine Ratio 13.5 (10-20); Bilirubin Direct 0.1 mg/dl (0-0.2); Bilirubin,Total 0.5 mg/dl (0.2-1); Calcium 9.1 mg/dl (8.5-10.1); Creatinine Clr Calc Pharmacy 141.6 ml/min; Est GFR (African American) 124.3; Est GFR (Non-African American) 107.3; Magnesium 2.4 mg/dl (1.8-2.4); Potassium 4.3 mmol/L (3.5-5.1); Total Protein 7.3 gm/dl (6.4-8.2)
[2019-11-13 07:38] LABS: Partial Thromboplastin Time 64.4 Seconds (21.0-31.0)
[2019-11-13] MEDS: METOPROLOL SUCC 25MG EXT REL TAB PO SCH ×2 (08:34→20:57)
[2019-11-13] MEDS: ASPIRIN 81 MG ECTAB PO SCH (08:34)
[2019-11-13] MEDS: CLOPIDOGREL BISULFATE 75 MG TAB PO SCH (08:35)
[2019-11-13] MEDS: ACETAMINOPHEN 325 MG TAB PO PRN (08:46)
[2019-11-13] MEDS ORDERED: SODIUM CHLORIDE 0.65% NA SOLN 45 ML (OCEAN) PRN (11:22)
[2019-11-13] MEDS ORDERED: SODIUM CHLORIDE 0.65% NA SOLN 45 ML (OCEAN) ONE (11:23)
--- NOTE | 2019-11-13 11:27 | Hospitalist Progress Note ---
Date of Service November 13, 2019 Assessment & Plan (1) Left ventricular thrombus: Initially seen on CT a/p on 11/07. Echo on 11/08 showed pedunculated apical thrombus. Secondary to hypokinesis from recent STEMI With right renal infarct, no other evidence of stroke or infarct elsewhere at this time - continue bridging on heparin gtt - continue Warfarin but increase to 7.5 mg daily as INR still only 1.8 today - Will need at least 3 months of anticoagulation and then reassessment with ECHO, f/u with Cardiology -appreciate Cardio consultation - Monitor INR in AM (2) Fever: Continues to be having fevers daily x 6 days -initially had some concern for viral illness as he was noted to have N/V/D - UA on 11/09 showed blood (expected in renal infarct), but no sign of infection. -Concern for bacteremia, so he was started on ceftriaxone. However, renal infarct itself can cause fevers (10% per UpToDate and widely noted in multiple primary sources). Could explain the leukocytosis as well. - Ceftriaxone given from admission until 11/10 Now with persistent fevers and gross hematuria on 11/12 -UA now appears possibly infected--> restarted ceftriaxone 11/12 -follow repeat urine cx - Blood cultures from 11/07 & 11/09 are negative -continue to follow Repeated BCxs 11/13-follow - CXR on 11/09 showed no infiltrates, although he is splinting due to pain and this could also be causing atelectasis and fever--> incentive spirometry and pain control encouraged -APAP prn fever - Right renal ultrasound on 11/10 showed no fluid collection or abscess, but since fevers persist, will pursue repeat imaging today with Renal US - Consult Urology for further recommendations apprecaited-discussed case with Urol DENISE Thakkar on phone today (3) Renal infarct: Presented for right flank pain; found to have an embolic right renal infarct. - Anticoagulation as above -continue oxycodone IR prn -continue APAP -with fevers as above -with gross hematuria as below but Urol does not feel this is related to the infarct (4) Gross hematuria: Developed on 11/12, could be secondary to renal infarct vs Art trauma, but Urol feels not related to infarct. Exacerbated by heparin gtt and coumadin use Mild hematuria -RN to flush catheter as needed, no clots today but Art is definitely positional -Consult Urology appreciated -continue Art catheter -follow CBC-hgb stable -continue heparin gtt for now given mild hematuria and need to treat LV thrombus (5) Elevated LFTs: Persistently elevated AST and ALT but not severe. TBili was high and is now back to normal No abnormalities on imaging of liver or GB Could be from perhaps fevers or inflammation from renal infarct in proximity? Was also recently started on atorvastatin with recent STEMI--> could be from this although would not cause elevated TBili Hep B and C negative but Hep A pending -follow LFTs-stable and elevated today -hold statin (6) Acute anterior wall [place]: Occurred on 10/30/2019 with PCI at [facility] to the proximal LAD. Echo shows EF 40-45%. - Continue ASA/Plavix, metoprolol changed to Toprol XL as is on his dc summary from [facility] -hold statin as above for elevated LFTs - Will need triple therapy for at least a month per cardiology. (7) Urinary retention: On 11/09, he had significant suprapubic discomfort and was unable to urinate. PVR showed 400 mL. Art placed with ~400 mL return of urine. - Started tamsulosin that evening (11/09) -now with hematuria as above -could be from opioids, severe constipation -Consult Urology appreciated -treating constipation (8) Syncope: Unknown cause. Patient reports that he was standing in line for food and just woke up on the floor. Concerning for arrhythmia, though none seen on telemetry so far. Stroke also possible, though no focal exam findings. - Monitor on telemetry -> No events so far this admission. -check orthostatics (9) Elevated troponin: Trending down from original STEMI. Seen by cardiology without concern for acute incident. - No inpatient needs (10) CAD (coronary artery disease), [place] coronary artery: as above, with STEMI 10/30/19 (11) Ischemic cardiomyopathy: EF 40-45% since recent STEMI -continue Toprol 25 bid -added lisinopril 2.5mg daily as per Cardio not volume overloaded (12) Constipation: no BM since 11/05 as per pt -worsened by immobility, opioid use Contributing to urinary retention -encouraged ambulation, out of bed-discussed with guards and with RN -start Miralax bid, senna/docusate bid -if no results by tomorrow, will give Mag citrate and Bisacodyl (13) Hyponatremia: Na+ down to 133 today, likely from mild dehydration, not drinking much, with insensible losses due to fevers -no IVFs given cardiomyopathy but will follow BMP (14) DVT prophylaxis: On heparin gtt for thrombus, coumadin Dispo: Back to [facility] after INR is 2-3, pain controlled, fevers resolved There is nothing but Tylenol at [facility], so I have been trying to be very mild with opiates as these will not be able to be continued on discharge. Subjective Continues to have abd pressure. I manipulated the Art at the bedside and i mmediately 400mL of pink-tinged urine poured out into the bag and he had relief of his pressure. He is not eating much. Not moved out of bed at all. He has not had a BM in 8 days he thinks. Abd pain is improved a little since yesterday. Continues to spike fevers. Has some nasal congestion and then blowing some scant amount of blood out of nose. No sore throat, not coughing. Review of Systems Review of Systems: All systems reviewed & are unremarkable except as noted in HPI & below Physical Exam Constitutional: WD/WN, vitals as above (lying in bed, seems drowsy but awake and alert for questioning) Eyes: + anicteric sclerae Neck: trachea midline, no thyromegaly Respiratory: normal respiratory effort, lungs clear to auscultation (cough with deep inspiration) Auscultation: lungs clear to auscultation bilaterally Cardiovascular: RRR, no murmur, no edema Chest (Breasts): Chest: normal inspection of chest Gastrointestinal (Abdomen): Inspection/Auscultation: abdomen normal to inspection and normal bowel sounds; abdomen not distended Percussion/Palpation: + abdomen tender (Right mid abdomen and flank but improved, no guarding or rebound) and abdomen soft Musculoskeletal: Extremities: extremities normal to inspection; no cyanosis and no clubbing Skin: no rashes, warm and dry Neurologic: moves all extremities and awake; no focal motor deficits Psychiatric: Orientation: alert, oriented to person, oriented to place, oriented to time and cooperative Eye Contact: good eye contact Speech: normal rate/rhythm/volume of speech Affect: + flat affect Genitourinary: Art in place with pink-tinged urine Lymphatic: no lymphedema Results & Data Vital Signs (Past 12 Hours) Vital Signs Temp Pulse Pulse Pulse Resp BP BP 11/13/19 08:00 73 11/13/19 07:07 37.5 C 68 18 106/69 11/13/19 03:50 37.0 C 62 19 101/68 11/13/19 00:00 64 11/12/19 23:55 36.8 C 75 8 L 133/83 Pulse Ox 11/13/19 08:00 11/13/19 07:07 97 11/13/19 03:50 100 11/13/19 00:00 11/12/19 23:55 100 Laboratory Results 11/13/19 11/13/19 11/13/19 Range/Units 06:18 06:18 06:18 WBC 11.51 H (4.8-10.8) K/uL RBC 4.66 L (4.7-6.1) M/uL Hgb 13.5 L (14.0-18.0) g/dL Hct 39.5 L (42-52) % MCV 84.8 (80-100) fL MCH 29.0 (25-34) pg MCHC 34.2 (32-36) g/dL RDW Std Deviation 37.4 (36.4-46.3) fL RDW Coeff of Nic 12.3 (11.5-14.5) % Plt Count 344 (130-400) K/uL MPV 9.4 (7.4-10.4) fL Immature Gran % (Auto) 0.8 % Neut % (Auto) 66.6 % Lymph % (Auto) 16.6 % [place] % (Auto) 14.2 % Eos % (Auto) 1.7 % Baso % (Auto) 0.1 % Immature Gran # (Auto) 0.09 H (0.00-0.02) K/uL Neut # (Auto) 7.68 H (1.4-6.5) K/uL Lymph # (Auto) 1.91 (1.2-3.4) K/uL [place] # (Auto) 1.63 H (0.11-0.59) K/uL Eos # (Auto) 0.19 (0-0.5) K/uL Baso # (Auto) 0.01 (0-0.2) K/uL PT 17.7 H (9.0-12.0) Seconds INR 1.8 H (0.9-1.1) APTT 64.4 H* (21.0-31.0) Seconds PTT Ratio 2.4 Sodium 133 L (136-145) mmol/L Potassium 4.3 (3.5-5.1) mmol/L Chloride 101 (98-107) mmol/L Carbon Dioxide 27 (21-32) mmol/L Anion Gap 5.0 (3-11) BUN 12 (7-18) mg/dl Creatinine 0.91 (0.6-1.4) mg/dl Est Cr Clr Drug Dosing 141.6 ml/min Est GFR ( Amer) 124.3 Est GFR (Non-Af Amer) 107.3 BUN/Creatinine Ratio 13.5 (10-20) Glucose 96 (70-99) mg/dl Calcium 9.1 (8.5-10.1) mg/dl Magnesium 2.4 (1.8-2.4) mg/dl Total Bilirubin 0.5 (0.2-1) mg/dl Direct Bilirubin 0.1 (0-0.2) mg/dl AST 139 H (15-37) U/L ALT 160 H (12-78) U/L Alkaline Phosphatase 83 (45-117) U/L Total Protein 7.3 (6.4-8.2) gm/dl Albumin 2.3 L (3.4-5.0) gm/dl Urine Color Urine Appearance (Clear) Urine pH (4.5-7.5) Ur Specific [place] (1.000-1.030) Urine Protein (Negative) Urine Glucose (UA) (Negative) Urine Ketones (Negative) Urine Blood (Negative) Urine Nitrite (Negative) Urine Bilirubin (Negative) Urine Urobilinogen (Negative) Ur Leukocyte Esterase (Negative) Urine WBC (Auto) (0-5) /hpf Urine RBC (Auto) (0-4) /hpf U Hyaline Cast (Auto) (0-5) /lpf U Epithel Cells (Auto) (0-5) /lpf Urine Bacteria (Auto) (Negative) 11/12/19 11/12/19 Range/Units 18:27 12:35 WBC (4.8-10.8) K/uL RBC (4.7-6.1) M/uL Hgb (14.0-18.0) g/dL Hct (42-52) % MCV (80-100) fL MCH (25-34) pg MCHC (32-36) g/dL RDW Std Deviation (36.4-46.3) fL RDW Coeff of Nic (11.5-14.5) % Plt Count (130-400) K/uL MPV (7.4-10.4) fL Immature Gran % (Auto) % Neut % (Auto) % Lymph % (Auto) % [place] % (Auto) % Eos % (Auto) % Baso % (Auto) % Immature Gran # (Auto) (0.00-0.02) K/uL Neut # (Auto) (1.4-6.5) K/uL Lymph # (Auto) (1.2-3.4) K/uL [place] # (Auto) (0.11-0.59) K/uL Eos # (Auto) (0-0.5) K/uL Baso # (Auto) (0-0.2) K/uL PT (9.0-12.0) Seconds INR (0.9-1.1) APTT 58.5 H* (21.0-31.0) Seconds PTT Ratio 2.2 Sodium (136-145) mmol/L Potassium (3.5-5.1) mmol/L Chloride (98-107) mmol/L Carbon Dioxide (21-32) mmol/L Anion Gap (3-11) BUN (7-18) mg/dl Creatinine (0.6-1.4) mg/dl Est Cr Clr Drug Dosing ml/min Est GFR ( Amer) Est GFR (Non-Af Amer) BUN/Creatinine Ratio (10-20) Glucose (70-99) mg/dl Calcium (8.5-10.1) mg/dl Magnesium (1.8-2.4) mg/dl Total Bilirubin (0.2-1) mg/dl Direct Bilirubin (0-0.2) mg/dl AST (15-37) U/L ALT (12-78) U/L Alkaline Phosphatase (45-117) U/L Total Protein (6.4-8.2) gm/dl Albumin (3.4-5.0) gm/dl Urine Color Red Urine Appearance Cloudy A (Clear) Urine pH 6.5 (4.5-7.5) Ur Specific [place] 1.013 (1.000-1.030) Urine Protein 2+ H (Negative) Urine Glucose (UA) Negative (Negative) Urine Ketones Negative (Negative) Urine Blood 3+ H (Negative) Urine Nitrite Negative (Negative) Urine Bilirubin Negative (Negative) Urine Urobilinogen Negative (Negative) Ur Leukocyte Esterase Trace H (Negative) Urine WBC (Auto) 10-30 H (0-5) /hpf Urine RBC (Auto) >30 H (0-4) /hpf U Hyaline Cast (Auto) 1-5 (0-5) /lpf U Epithel Cells (Auto) 10-20 H (0-5) /lpf Urine Bacteria (Auto) Negative (Negative) PG Care Time/CCT Total # of Minutes Spent Total Time Spent with Patient: Total time spent is greater than 50% in coordination of care (as documented) at patient's floor/unit and/or counseling patient: (1) Syncope Syncope type: unspecified Qualified Code(s): R55 - Syncope and collapse
--- NOTE | 2019-11-13 11:31 | Urology Consultation ---
Date of Consultation November 13, 2019 Assessment & Plan (1) Hematuria: (2) Gross hematuria: (3) Urinary retention: 39yo M admitted with STEMI, R renal infarct on anticoagulation, with hematuria, recurrent fevers. Continue uriostegui catheter, monitor hematuria. Monitor H/H. Discussed plan of care with Dr. Witt and Dr. Santos. Reasonable to recheck Renal US to evaluate for possible abscess formation in setting of recent infarct for potential cause for recurrent fevers. Numerous other causes may contribute as well. Will continue to follow peripherally while inpatient. History of Present Illness Reason for Consultation: hematuria Requesting Physician: Dr. Witt Attending Physician: Blanca Witt MD History of Present Illness 39yo inmate admitted 6 days ago with complicated cardiac event including STEMI with R renal infarct. Cardiology consulted, heparin gtt initiated, in addition to warfarin therapy/plavix/aspirin. Subsequently developed urinary retention, resulting in nontraumatic uriostegui catheter placement on 11/09. Per patient and guards, he was initially draining clear yellow urine developing to gross hematuria. Required hand irrigation x1 yesterday. CT Abd/pelvis 11/07 reveals right renal infarct. No stones, no hydronephrosis. No lesions/masses. Uriostegui now draining light pink, mild clots. H/H stable, Allergies Allergy/AdvReac Type Severity Reaction Status Date / Time No Known Allergies Allergy Unverified 11/07/19 19:28 Home Medications Home Medications Medication Instructions Recorded Confirmed Type aspirin [Aspir-81] 81 mg PO DAILY 11/07/19 11/07/19 History atorvastatin 80 mg PO HS 11/07/19 11/07/19 History clopidogrel [Plavix] 75 mg PO DAILY 11/07/19 11/07/19 History metoprolol succinate [Toprol XL] 25 mg PO BID 11/12/19 11/12/19 History Patient History Medical History (Updated 11/13/19 @ 12:21 by DENISE Chapin) Acute anterior wall [place] (Acute) Acute [place], lateral wall (Acute) CAD (coronary artery disease), [place] coronary artery Chest pain (Acute) Elevated troponin (Acute) Surgical History H/O cardiac catheterization Hx of heart artery stent Social History Preferred Language: Montene[place]in Communication Ability: Effective Economic Adviser Required: No Beliefs That Will Affect Care: None Current Living Situation: Other Current Living Situation Comment: [facility] Other Information That Helps Us Care for You: No Feels Safe at Home: Yes Safety Concerns: Feels Safe At This Time Smoking Status: Never smoker Hx Alcohol Use: No Hx Substance Use: No Results & Data Vital Signs (Past 12 Hours) Vital Signs Temp Pulse Pulse Pulse Resp BP BP 11/13/19 08:00 73 11/13/19 07:07 37.5 C 68 18 106/69 11/13/19 03:50 37.0 C 62 19 101/68 11/13/19 00:00 64 11/12/19 23:55 36.8 C 75 8 L 133/83 Pulse Ox 11/13/19 08:00 11/13/19 07:07 97 11/13/19 03:50 100 11/13/19 00:00 11/12/19 23:55 100 PG Care Time/CCT Total # of Minutes Spent Total Time Spent with Patient: Total time spent is greater than 50% in coordination of care (as documented) at patient's floor/unit and/or counseling patient:
[2019-11-13] MEDS: POLYETHYLENE (MIRALAX) 17 GM PACK PO SCH ×2 (11:52→20:57)
--- NOTE | 2019-11-13 15:04 | Ultrasound Report ---
US renal/blad retro comp CLINICAL HISTORY: 39 years-old Male presenting with renal infarct,r/o abscess,fever. TECHNIQUE: Real-time grayscale and limited color and spectral Doppler ultrasound imaging of the kidne ys and bladder was performed. COMPARISON: 11/10/[address] from 11/07/2019. FINDINGS: Right kidney: Wedge-shaped centrally hypoechoic, peripherally hyperechoic focus in the interpolar reg ion consistent with the recent infarct this measures approximately 5 cm. Right kidney measures 11.5 c m. No hydronephrosis. No convincing evidence of calculus or mass. Right renal vein and artery grossly patent with normal waveforms. Normal color Doppler flow to the renal hilum. Left kidney: Normal echogenicity with preserved corticomedullary differentiation. Normal cortical thi ckness. Left kidney measures 12.4 cm. No hydronephrosis. No convincing evidence of calculus or mass. Normal color Doppler flow to the renal hilum and renal parenchyma. Bladder: Decompressed with a Art catheter. Bilateral ureteral jets not visualized. Other: None. IMPRESSION: 1. Evolving right renal infarct. While there is significant heterogeneity in this region, there is n o specific finding to raise concern for abscess. Correlate with urinalysis to assess for superinfecti on. If there is continuing clinical concern, CT can be obtained. 2. No hydronephrosis. ACT 112: Negative or not required by law. Electronically signed by: Travon Marroquin M.D. 11/13/2019 3:02 PM
[2019-11-13] MEDS: HEPARIN SODIUM/DEXTROSE 25,000 UNITS/500 ML BAG IV SCH (15:49)
[2019-11-13] MEDS: DOCUSATE SODIUM/SENNA 50/8.6MG TAB PO SCH ×2 (15:51→20:57)
[2019-11-13] MEDS ORDERED: WARFARIN SOD 7.5 MG TAB PO SCH (16:00)
[2019-11-13] MEDS: TAMSULOSIN HCL 0.4 MG CAP PO SCH (20:57)
[2019-11-14] MEDS: cefTRIAXone SODIUM 2,000 MG in DEXTROSE 5% 50 ML IV SCH (00:19)
[2019-11-14 06:50] LABS: Basophils # (auto) 0.03 K/uL (0-0.2); Basophils % (auto) 0.3 %; Eosinophils # (auto) 0.22 K/uL (0-0.5); Eosinophils % (auto) 2.1 %; Hemoglobin 13.7 g/dL (14.0-18.0); Immature Granulocytes # (auto) 0.11 K/uL (0.00-0.02); Lymphocytes # (auto) 2.07 K/uL (1.2-3.4); Lymphocytes % (auto) 19.6 %; Mean Corpuscular Hemoglobin 29.7 pg (25-34); Mean Corpuscular Hgb Conc 35.1 g/dL (32-36); Mean Corpuscular Volume 84.6 fL (80-100); Mean Platelet Volume 9.3 fL (7.4-10.4); Monocytes # (auto) 1.35 K/uL (0.11-0.59); Monocytes % (auto) 12.8 %; Neutrophils % (auto) 64.2 %; Platelet Count 380 K/uL (130-400); RDW Coefficient of Variation 12.3 % (11.5-14.5); RDW Standard Deviation 37.7 fL (36.4-46.3); Red Blood Count 4.61 M/uL (4.7-6.1); White Blood Count 10.58 K/uL (4.8-10.8)
[2019-11-14 07:19] LABS: INR 2.3 (0.9-1.1); Prothrombin Time 21.9 Seconds (9.0-12.0)
[2019-11-14 07:24] LABS: Albumin Level 2.3 gm/dl (3.4-5.0); BUN Creatinine Ratio 13.5 (10-20); Calcium 9.1 mg/dl (8.5-10.1); Creatinine Clr Calc Pharmacy 139.9 ml/min; Est GFR (African American) 122.7; Est GFR (Non-African American) 105.9; Magnesium 2.3 mg/dl (1.8-2.4); Potassium 4.2 mmol/L (3.5-5.1)
[2019-11-14 07:27] LABS: Albumin Globulin Ratio 0.5 (0.9-2); Bilirubin,Total 0.4 mg/dl (0.2-1); Globulin 5.1 gm/dl (2.5-4.0); Total Protein 7.4 gm/dl (6.4-8.2)
[2019-11-14 07:51] LABS: Partial Thromboplastin Ratio 2.2
[2019-11-14 07:54] LABS: Partial Thromboplastin Time 60.9 Seconds (21.0-31.0)
[2019-11-14] MEDS: CLOPIDOGREL BISULFATE 75 MG TAB PO SCH (08:06)
[2019-11-14] MEDS: METOPROLOL SUCC 25MG EXT REL TAB PO SCH ×2 (08:06→20:48)
[2019-11-14] MEDS: ASPIRIN 81 MG ECTAB PO SCH (08:07)
[2019-11-14] MEDS: DOCUSATE SODIUM/SENNA 50/8.6MG TAB PO SCH ×2 (08:07→20:48)
[2019-11-14] MEDS: POLYETHYLENE (MIRALAX) 17 GM PACK PO SCH ×2 (08:08→20:48)
[2019-11-14] MEDS ORDERED: Nursing to Pharmacy Communication ONE (09:13)
[2019-11-14] MEDS ORDERED: HEPARIN SODIUM/DEXTROSE 25,000 UNITS/500 ML BAG IV SCH (09:30)
--- NOTE | 2019-11-14 12:37 | Urology Progress Note ---
Date of Service November 14, 2019 Assessment & Plan (1) Hematuria: (2) Gross hematuria: (3) Urinary retention: 39 yo M inmate admitted with STEMI, R renal infarct on anticoagulation, with hematuria, recurrent fevers. Will d/c Art, if unable to void in 8 hours or develops discomfort, then replace Art Monitor H/H Renal US reviewed - no abscess formation Thank you for allowing us to participate in the acute care of Mr. Suresh. Please reconsult us with additional questions, concerns or changes in patient status. Subjective 39 yo M inmate admitted 7 days ago with complicated cardiac event including STEMI with R renal infarct, subsequent urinary retention and hematuria. Sitting up in bedside chair today. Afebrile overnight. Reports some intermittent lower abdominal pressure and right flank discomfort. He would like to discontin ue Art. Appetite is poor, but denies nausea or vomiting. Bowel movements are regular, denies constipation. Art intact draining light pink urine. Renal US reviewed which demonstrated evolving right renal infarct. While there is significant heterogeneity in this region, there is no specific finding to raise concern for abscess. No hydronephrosis. Review of Systems Review of Systems: All systems reviewed & are unremarkable except as noted in HPI & below Physical Exam Physical Exam: NAD AOx3 Abd soft, nondistended, mild generalized tenderness, no guarding No CVA tenderness Art intact draining light pink urine No pedal edema Results & Data Vital Signs (Past 12 Hours) Vital Signs Temp Pulse Pulse Resp BP Pulse Ox 11/14/19 11:34 37.2 C 63 20 106/73 98 11/14/19 08:00 66 11/14/19 06:54 37.2 C 63 18 108/72 98 11/14/19 04:48 36.5 C 70 20 105/68 98 11/14/19 00:50 54 L PG Care Time/CCT Total # of Minutes Spent Total Time Spent with Patient: Total time spent is greater than 50% in starch cooker rdination of care (as documented) at patient's floor/unit and/or counseling patient:
--- NOTE | 2019-11-14 14:36 | Hospitalist Progress Note ---
Date of Service November 14, 2019 Assessment & Plan (1) Left ventricular thrombus: Initially seen on CT a/p on 11/07. Echo on 11/08 showed pedunculated apical thrombus. Secondary to hypokinesis from recent STEMI With right renal infarct, no other evidence of stroke or infarct elsewhere at this time - INR therapeutic--> dc heparin gtt - continue Warfarin back down to 5mg daily now -Will need at least 3 months of anticoagulation and then reassessment with ECHO, f/u with Cardiology -appreciate Cardio consultation - Monitor INR in AM (2) Fever: Continued to have fevers daily x 6-7 days, now resolving -initially had some concern for viral illness as he was noted to have N/V/D, but most likely from renal infarct and possible UTI - UA on 11/09 showed blood (expected in renal infarct), but no sign of infection. -Concern for bacteremia, so he was started on ceftriaxone. However, renal infarct itself can cause fevers (10% per UpToDate and widely noted in multiple primary sources). Could explain the leukocytosis as well. - Ceftriaxone given from admission until 11/10 Then because of persistent fevers and gross hematuria on 11/12, repeat UA appeared possibly infected--> restarted ceftriaxone 11/12 -follow repeat urine cx-no growth - Blood cultures from 11/07 & 11/09 are negative -continue to follow Repeated BCxs 11/1381-[id number] growth - CXR on 11/09 showed no infiltrates, although he is splinting due to pain and this could also be causing atelectasis and fever--> incentive spirometry and pain control encouraged -APAP prn fever - Right renal ultrasound on 11/10 showed no fluid collection or abscess,and due to the fevers persisting, repeated imaging with Renal US on 11/13 again with heterogeneity and 5cm infarct but no abscess - Consult Urology for further recommendations-appreciated as below (3) Renal infarct: Presented for right flank pain; found to have an embolic right renal infarct. - Anticoagulation as above -continue oxycodone IR prn -continue APAP -with fevers as above now resolving -with gross hematuria as below but Urol does not feel this is related to the infarct-improving (4) Gross hematuria: Developed on 11/12, could be secondary to renal infarct vs Art trauma, but Urol feels not related to infarct. Exacerbated by heparin gtt and coumadin use Mild hematuria now resolving -dc Art and trial of void today -Consult Urology appreciated -follow CBC-hgb stable (5) Elevated LFTs: Persistently elevated AST and ALT but not severe. TBili was high and is now back to normal No abnormalities on imaging of liver or GB Could be from perhaps fevers or inflammation from renal infarct in proximity? Was also recently started on atorvastatin with recent STEMI--> could be from this although would not cause elevated TBili Hep B and C negative but Hep A pending -follow LFTs-stable and elevated today -continue to hold statin and once LFTs normalize (hopefully), should be restarted on a new statin, perhaps Crestor (6) Acute anterior wall [place]: Occurred on 10/30/2019 with PCI at [facility] to the proximal LAD. Echo shows EF 40-45%. - Continue ASA/Plavix, metoprolol changed to Toprol XL as is on his dc summary from [facility] -holding statin as above for elevated LFTs and will need to trial Crestor after LFTs improve - Will need triple therapy for at least a month per cardiology. (7) Urinary retention: On 11/09, he had significant suprapubic discomfort and was unable to urinate. PVR showed 400 mL. Art placed with ~400 mL return of urine. - Started tamsulosin that evening (11/09) -now with hematuria as above, improving -could be from opioids, severe constipation -constipation now resolved, not using opioids since yesterday -Consult Urology appreciated -continue treating constipation -removing Art today (8) Syncope: Unknown cause. Patient reports that he was standing in line for food and just woke up on the floor. Concerning for arrhythmia, though none seen on telemetry so far. Stroke also possible, though no focal exam findings. - Monitor on telemetry -> No events so far this admission. -check orthostatics (9) Elevated troponin: Trending down from original STEMI. Seen by cardiology without concern for acute incident. - No inpatient needs (10) CAD (coronary artery disease), [place] coronary artery: as above, with STEMI 10/30/19 (11) Ischemic cardiomyopathy: EF 40-45% since recent STEMI -continue Toprol 25 bid -added lisinopril 2.5mg daily as per Cardio not volume overloaded (12) Constipation: Now resolved with aggressive bowel regimen -worsened by immobility, opioid use Contributed to urinary retention -encouraged continued ambulation, out of bed-discussed with guards and with RN -cont Miralax bid, senna/docusate bid (13) Hyponatremia: Na+ down to 133 and now improved to 134, likely from mild dehydration, not drinking much, with insensible losses due to fevers -no IVFs given cardiomyopathy but will follow BMP (14) DVT prophylaxis: On heparin gtt for thrombus, coumadin Dispo: Back to [facility] after INR is 2-3, pain controlled, fevers resolved- hopefully tomorrow There is nothing but Tylenol at [facility], so I have been trying to be very mild with opiates as these will not be able to be continued on discharge. Subjective Pt feeling better today, no more fevers, just low grade temps last evening. Pain severity down to a 4/10 in RLQ. is moving bowels a lot. Is anxious to have catheter removed from his bladder. No chest pain or SOB. Tele with NSR, 60s Review of Systems Review of Systems: All systems reviewed & are unremarkable except as noted in HPI & below Physical Exam Constitutional: WD/WN, vitals as above Eyes: + anicteric sclerae Neck: trachea midline, no thyromegaly Respiratory: normal respiratory effort, lungs clear to auscultation Cardiovascular: RRR, no murmur, no edema Chest (Breasts): Chest: normal inspection of chest Gastrointestinal (Abdomen): Inspection/Auscultation: abdomen normal to inspection and normal bowel sounds; abdomen not distended Percussion/Palpation: + abdomen tender (very minimal tenderness RLQ improved from previous) and abdomen soft Musculoskeletal: Extremities: extremities normal to inspection; no cyanosis and no clubbing Skin: no rashes, warm and dry Neurologic: moves all extremities and awake; no focal motor deficits Psychiatric: Orientation: alert, oriented to person, oriented to place, oriented to time and cooperative Eye Contact: good eye contact Speech: normal rate/rhythm/volume of speech Genitourinary: Art bag with very slightly pink tinged urine Lymphatic: no lymphedema Results & Data Vital Signs (Past 12 Hours) Vital Signs Temp Pulse Pulse Resp BP Pulse Ox 11/14/19 11:34 37.2 C 63 20 106/73 98 11/14/19 08:00 66 11/14/19 06:54 37.2 C 63 18 108/72 98 11/14/19 04:48 36.5 C 70 20 105/68 98 Laboratory Results 11/14/19 11/14/19 11/14/19 Range/Units 06:39 06:39 06:39 WBC 10.58 (4.8-10.8) K/uL RBC 4.61 L (4.7-6.1) M/uL Hgb 13.7 L (14.0-18.0) g/dL Hct 39.0 L (42-52) % MCV 84.6 (80-100) fL MCH 29.7 (25-34) pg MCHC 35.1 (32-36) g/dL RDW Std Deviation 37.7 (36.4-46.3) fL RDW Coeff of Nic 12.3 (11.5-14.5) % Plt Count 380 (130-400) K/uL MPV 9.3 (7.4-10.4) fL Immature Gran % (Auto) 1.0 % Neut % (Auto) 64.2 % Lymph % (Auto) 19.6 % [place] % (Auto) 12.8 % Eos % (Auto) 2.1 % Baso % (Auto) 0.3 % Immature Gran # (Auto) 0.11 H (0.00-0.02) K/uL Neut # (Auto) 6.80 H (1.4-6.5) K/uL Lymph # (Auto) 2.07 (1.2-3.4) K/uL [place] # (Auto) 1.35 H (0.11-0.59) K/uL Eos # (Auto) 0.22 (0-0.5) K/uL Baso # (Auto) 0.03 (0-0.2) K/uL PT 21.9 H (9.0-12.0) Seconds INR 2.3 H (0.9-1.1) APTT 60.9 H* (21.0-31.0) Seconds PTT Ratio 2.2 Sodium 134 L (136-145) mmol/L Potassium 4.2 (3.5-5.1) mmol/L Chloride 101 (98-107) mmol/L Carbon Dioxide 28 (21-32) mmol/L Anion Gap 5.0 (3-11) BUN 13 (7-18) mg/dl Creatinine 0.92 (0.6-1.4) mg/dl Est Cr Clr Drug Dosing 139.9 ml/min Est GFR ( Amer) 122.7 Est GFR (Non-Af Amer) 105.9 BUN/Creatinine Ratio 13.5 (10-20) Glucose 102 H (70-99) mg/dl Calcium 9.1 (8.5-10.1) mg/dl Magnesium 2.3 (1.8-2.4) mg/dl Total Bilirubin 0.4 (0.2-1) mg/dl AST 180 H (15-37) U/L ALT 203 H (12-78) U/L Alkaline Phosphatase 79 (45-117) U/L Total Protein 7.4 (6.4-8.2) gm/dl Albumin 2.3 L (3.4-5.0) gm/dl Globulin 5.1 H (2.5-4.0) gm/dl Albumin/Globulin Ratio 0.5 L (0.9-2) Hepatitis A IgM Ab Hepatitis A Ab Total 11/14/19 Range/Units 06:39 WBC (4.8-10.8) K/uL RBC (4.7-6.1) M/uL Hgb (14.0-18.0) g/dL Hct (42-52) % MCV (80-100) fL MCH (25-34) pg MCHC (32-36) g/dL RDW Std Deviation (36.4-46.3) fL RDW Coeff of Nic (11.5-14.5) % Plt Count (130-400) K/uL MPV (7.4-10.4) fL Immature Gran % (Auto) % Neut % (Auto) % Lymph % (Auto) % [place] % (Auto) % Eos % (Auto) % Baso % (Auto) % Immature Gran # (Auto) (0.00-0.02) K/uL Neut # (Auto) (1.4-6.5) K/uL Lymph # (Auto) (1.2-3.4) K/uL [place] # (Auto) (0.11-0.59) K/uL Eos # (Auto) (0-0.5) K/uL Baso # (Auto) (0-0.2) K/uL PT (9.0-12.0) Seconds INR (0.9-1.1) APTT (21.0-31.0) Seconds PTT Ratio Sodium (136-145) mmol/L Potassium (3.5-5.1) mmol/L Chloride (98-107) mmol/L Carbon Dioxide (21-32) mmol/L Anion Gap (3-11) BUN (7-18) mg/dl Creatinine (0.6-1.4) mg/dl Est Cr Clr Drug Dosing ml/min Est GFR ( Amer) Est GFR (Non-Af Amer) BUN/Creatinine Ratio (10-20) Glucose (70-99) mg/dl Calcium (8.5-10.1) mg/dl Magnesium (1.8-2.4) mg/dl Total Bilirubin (0.2-1) mg/dl AST (15-37) U/L ALT (12-78) U/L Alkaline Phosphatase (45-117) U/L Total Protein (6.4-8.2) gm/dl Albumin (3.4-5.0) gm/dl Globulin (2.5-4.0) gm/dl Albumin/Globulin Ratio (0.9-2) Hepatitis A IgM Ab Pending Hepatitis A Ab Total Pending PG Care Time/CCT Total # of Minutes Spent Total Time Spent with Patient: Total time spent is greater than 50% in coordination of care (as documented) at patient's floor/unit and/or counseling patient: (1) Syncope Syncope type: unspecified Qualified Code(s): R55 - Syncope and collapse
[2019-11-14] MEDS: WARFARIN SOD 5 MG TAB PO SCH (17:01)
[2019-11-14] MEDS: TAMSULOSIN HCL 0.4 MG CAP PO SCH (20:48)
[2019-11-15] MEDS: cefTRIAXone SODIUM 2,000 MG in DEXTROSE 5% 50 ML IV SCH (00:20)
[2019-11-15 04:59] LABS: Hepatitis A Antibody IgM NON-REACTIVE (NON-REACTIVE); Hepatitis A Antibody Total NON-REACTIVE (NON-REACTIVE)
[2019-11-15 06:09] LABS: Basophils # (auto) 0.04 K/uL (0-0.2); Basophils % (auto) 0.4 %; Eosinophils # (auto) 0.32 K/uL (0-0.5); Eosinophils % (auto) 3.1 %; Hematocrit (blood only) 37.3 % (42-52); Hemoglobin 12.7 g/dL (14.0-18.0); Immature Granulocytes # (auto) 0.23 K/uL (0.00-0.02); Immature Granulocytes % (auto) 2.2 %; Lymphocytes # (auto) 2.11 K/uL (1.2-3.4); Lymphocytes % (auto) 20.2 %; Mean Corpuscular Hemoglobin 29.1 pg (25-34); Mean Corpuscular Volume 85.4 fL (80-100); Mean Platelet Volume 9.5 fL (7.4-10.4); Monocytes # (auto) 1.46 K/uL (0.11-0.59); Neutrophils % (auto) 60.1 %; Platelet Count 457 K/uL (130-400); RDW Coefficient of Variation 12.2 % (11.5-14.5); RDW Standard Deviation 37.8 fL (36.4-46.3); Red Blood Count 4.37 M/uL (4.7-6.1); White Blood Count 10.46 K/uL (4.8-10.8)
[2019-11-15 06:43] LABS: BUN Creatinine Ratio 13.3 (10-20); Calcium 8.9 mg/dl (8.5-10.1); Creatinine Clr Calc Pharmacy 144.7 ml/min; Est GFR (African American) 126.6; Est GFR (Non-African American) 109.2; Magnesium 2.4 mg/dl (1.8-2.4); Potassium 4.2 mmol/L (3.5-5.1)
[2019-11-15 06:57] LABS: INR 2.3 (0.9-1.1); Prothrombin Time 21.9 Seconds (9.0-12.0)
[2019-11-15] MEDS: CLOPIDOGREL BISULFATE 75 MG TAB PO SCH (08:15)
[2019-11-15] MEDS: POLYETHYLENE (MIRALAX) 17 GM PACK PO SCH (08:15)
[2019-11-15] MEDS: ASPIRIN 81 MG ECTAB PO SCH (08:15)
[2019-11-15] MEDS: DOCUSATE SODIUM/SENNA 50/8.6MG TAB PO SCH (08:15)
[2019-11-15] MEDS: METOPROLOL SUCC 25MG EXT REL TAB PO SCH ×2 (08:15→21:25)
[2019-11-15 10:35] LABS: Albumin Level 2.4 gm/dl (3.4-5.0); BUN Creatinine Ratio 13.1 (10-20); Calcium 9.1 mg/dl (8.5-10.1); Creatinine Clr Calc Pharmacy 125.8 ml/min; Est GFR (African American) 108.3; Est GFR (Non-African American) 93.5; Potassium 4.3 mmol/L (3.5-5.1)
[2019-11-15 10:37] LABS: Albumin Globulin Ratio 0.5 (0.9-2); Bilirubin,Total 0.4 mg/dl (0.2-1); Globulin 5.1 gm/dl (2.5-4.0); Total Protein 7.5 gm/dl (6.4-8.2)
--- NOTE | 2019-11-15 11:44 | Hospitalist Progress Note ---
Date of Service November 15, 2019 Assessment & Plan (1) Left ventricular thrombus: Initially seen on CT a/p on 11/07. Echo on 11/08 showed pedunculated apical thrombus. Secondary to hypokinesis from recent STEMI With right renal infarct, no other evidence of stroke or infarct elsewhere at this time - INR therapeutic--> have since dcd heparin gtt - continue Warfarin 5mg daily now -Will need at least 3 months of anticoagulation and then reassessment with ECHO, f/u with Cardiology -appreciate Cardio consultation - Monitor INR in AM (2) Fever: Continued to have fevers daily x 6-7 days, now resolved -initially had some concern for viral illness as he was noted to have N/V/D, but most likely from renal infarct and possible UTI - UA on 11/09 showed blood (expected in renal infarct), but no sign of infection. -Concern for bacteremia, so he was started on ceftriaxone. However, renal infarct itself can cause fevers (10% per UpToDate and widely noted in multiple primary sources). Could explain the leukocytosis as well. - Ceftriaxone given from admission until 11/10 when it was stopped Then because of persistent fevers and gross hematuria on 11/12, repeat UA appeared possibly infected--> restarted ceftriaxone 11/12 -follow repeat urine cx-no growth - Blood cultures from 11/07 & 11/09, and 11/13 are negative -continue to follow - CXR on 11/09 showed no infiltrates, although he is splinting due to pain and this could also be causing atelectasis and fever--> incentive spirometry and pain control encouraged -now remains afebrile x 48 hrs - Right renal ultrasound on 11/10 showed no fluid collection or abscess,and due to the fevers persisting, repeated imaging with Renal US on 11/13 again with heterogeneity and 5cm infarct but no abscess - Consult Urology for further recommendations-appreciated as below (3) Renal infarct: Presented for right flank pain; found to have an embolic right renal infarct. - Anticoagulation as above -continue oxycodone IR prn although no longer using this -continue APAP prn -with fevers as above now resolved -with gross hematuria as below but Urol does not feel this is related to the infarct-improving (4) Gross hematuria: Developed on 11/12, could be secondary to renal infarct vs Art trauma, but Urol feels not related to infarct. Exacerbated by heparin gtt and coumadin use Mild hematuria persists and causing bladder spasms -dcd Art 11/14 and passed trial of void -Consult Urology appreciated -follow CBC-hgb stable -start oxybutynin 5mg po bid (5) Elevated LFTs: Persistently elevated AST and ALT slightly higher today in the 200-300s. TBili was high initially and is now back to normal No abnormalities on imaging of liver or GB Could be from perhaps fevers or inflammation from renal infarct in proximity? Liver does not appear fatty or cirrhotic on CT or US Gallbladder normal Was also recently started on atorvastatin with recent STEMI--> could be from this although would not cause elevated TBili Hep A, B and C negative -follow LFTs -continue to hold statin and once LFTs normalize (hopefully), should be restarted on a new statin, perhaps Crestor -pt very concerned due to family history of UC, liver cirrhosis requiring transplant --> consult GI for further opinion (6) Acute anterior wall [place]: Occurred on 10/30/2019 with PCI at [facility] to the proximal LAD. Echo shows EF 40-45%. - Continue ASA/Plavix, metoprolol changed to Toprol XL as is on his dc summary from [facility] -holding statin as above for elevated LFTs and will need to trial Crestor after LFTs improve - Will need triple therapy for at least a month per cardiology. (7) Urinary retention: On 11/09, he had significant suprapubic discomfort and was unable to urinate. PVR showed 400 mL. Art placed with ~400 mL return of urine. - Started tamsulosin that evening (11/09) -now with hematuria as above, improving -could be from opioids, severe constipation -constipation now resolved, not using opioids now -Consult Urology appreciated -continue treating constipation -passed TOV and no further retention on PVR today (8) Syncope: Unknown cause. Patient reports that he was standing in line for food and just woke up on the floor. Concerning for arrhythmia, though none seen on telemetry so far. Stroke also possible, though no focal exam findings. - Monitor on telemetry -> No events so far this admission. -orthostatics negative (9) Elevated troponin: Trending down from original STEMI. Seen by cardiology without concern for acute incident. - No inpatient needs (10) CAD (coronary artery disease), [place] coronary artery: as above, with STEMI 10/30/19 (11) Ischemic cardiomyopathy: EF 40-45% since recent STEMI -continue Toprol 25 bid -added lisinopril 2.5mg daily as per Cardio not volume overloaded (12) Constipation: Now resolved with aggressive bowel regimen -worsened by immobility, opioid use Contributed to urinary retention -encouraged continued ambulation, out of bed-discussed with guards and with RN Now moving bowels quite a bit -dc senna/docusate -make Miralax daily prn now (13) Hyponatremia: Na+ down to 133 and stable, with insensible losses of fluid due to fevers and mild dehydration? He is euvolemic on exam -follow BMP (14) DVT prophylaxis: Coumadin Dispo: Back to [facility] possibly 1-2 days-continued stay for bladder spasm co ntrol, persistent hematuria, elevated LFTs Subjective Still having some hematuria, no clots. Having bladder spasms especially at the end of urinating. PVR 40mL this AM, no retention. No back pain. Abd pain overall improved, has not taken either oxycodone or tylenol prn He is very worried about his liver because his father had to have a liver transplant. Review of Systems Review of Systems: All systems reviewed & are unremarkable except as noted in HPI & below Physical Exam Constitutional: WD/WN, vitals as above Eyes: + anicteric sclerae Neck: trachea midline, no thyromegaly Respiratory: normal respiratory effort, lungs clear to auscultation Auscultation: lungs clear to auscultation bilaterally Cardiovascular: RRR, no murmur, no edema Chest (Breasts): Chest: normal inspection of chest Gastrointestinal (Abdomen): Inspection/Auscultation: abdomen normal to inspection and normal bowel sounds; abdomen not distended Pe rcussion/Palpation: + abdomen tender (very minimal tenderness suprapubic region, no Rt CVA tenderness) and abdomen soft Musculoskeletal: Extremities: extremities normal to inspection; no cyanosis and no clubbing Skin: no rashes, warm and dry Neurologic: moves all extremities and awake; no focal motor deficits Psychiatric: Orientation: alert, oriented to person, oriented to place, oriented to time and cooperative Eye Contact: good eye contact Speech: normal rate/rhythm/volume of speech Affect: + flat affect Genitourinary: urine with dark red color Lymphatic: no lymphedema Results & Data Vital Signs (Past 12 Hours) Vital Signs Temp Pulse Pulse Pulse Resp BP Pulse Ox 11/15/19 08:00 66 11/15/19 07:39 37.0 C 64 20 100/67 98 11/15/19 03:16 37.2 C 57 L 18 111/74 100 11/14/19 23:50 37.2 C 59 L 20 103/68 100 Laboratory Results 11/15/19 11/15/19 11/15/19 Range/Units 09:48 05:33 05:33 WBC (4.8-10.8) K/uL RBC (4.7-6.1) M/uL Hgb (14.0-18.0) g/dL Hct (42-52) % MCV (80-100) fL MCH (25-34) pg MCHC (32-36) g/dL RDW Std Deviation (36.4-46.3) fL RDW Coeff of Nic (11.5-14.5) % Plt Count (130-400) K/uL MPV (7.4-10.4) fL Immature Gran % (Auto) % Neut % (Auto) % Lymph % (Auto) % [place] % (Auto) % Eos % (Auto) % Baso % (Auto) % Immature Gran # (Auto) (0.00-0.02) K/uL Neut # (Auto) (1.4-6.5) K/uL Lymph # (Auto) (1.2-3.4) K/uL [place] # (Auto) (0.11-0.59) K/uL Eos # (Auto) (0-0.5) K/uL Baso # (Auto) (0-0.2) K/uL PT 21.9 H (9.0-12.0) Seconds INR 2.3 H (0.9-1.1) Sodium 134 L 133 L (136-145) mmol/L Potassium 4.3 4.2 (3.5-5.1) mmol/L Chloride 101 102 (98-107) mmol/L Carbon Dioxide 29 27 (21-32) mmol/L Anion Gap 4.0 4.0 (3-11) BUN 13 12 (7-18) mg/dl Creatinine 1.02 0.89 (0.6-1.4) mg/dl Est Cr Clr Drug Dosing 125.8 144.7 ml/min Est GFR ( Amer) 108.3 126.6 Est GFR (Non-Af Amer) 93.5 109.2 BUN/Creatinine Ratio 13.1 13.3 (10-20) Glucose 105 H 95 (70-99) mg/dl Calcium 9.1 8.9 (8.5-10.1) mg/dl Magnesium 2.4 (1.8-2.4) mg/dl Total Bilirubin 0.4 (0.2-1) mg/dl AST 260 H (15-37) U/L ALT 324 H (12-78) U/L Alkaline Phosphatase 80 (45-117) U/L Total Protein 7.5 (6.4-8.2) gm/dl Albumin 2.4 L (3.4-5.0) gm/dl Globulin 5.1 H (2.5-4.0) gm/dl Albumin/Globulin Ratio 0.5 L (0.9-2) Hepatitis A IgM Ab (NON-REACTIVE) Hepatitis A Ab Total (NON-REACTIVE) 11/15/19 11/14/19 Range/Units 05:33 06:39 WBC 10.46 (4.8-10.8) K/uL RBC 4.37 L (4.7-6.1) M/uL Hgb 12.7 L (14.0-18.0) g/dL Hct 37.3 L (42-52) % MCV 85.4 (80-100) fL MCH 29.1 (25-34) pg MCHC 34.0 (32-36) g/dL RDW Std Deviation 37.8 (36.4-46.3) fL RDW Coeff of Nic 12.2 (11.5-14.5) % Plt Count 457 H (130-400) K/uL MPV 9.5 (7.4-10.4) fL Immature Gran % (Auto) 2.2 % Neut % (Auto) 60.1 % Lymph % (Auto) 20.2 % [place] % (Auto) 14.0 % Eos % (Auto) 3.1 % Baso % (Auto) 0.4 % Immature Gran # (Auto) 0.23 H (0.00-0.02) K/uL Neut # (Auto) 6.30 (1.4-6.5) K/uL Lymph # (Auto) 2.11 (1.2-3.4) K/uL [place] # (Auto) 1.46 H (0.11-0.59) K/uL Eos # (Auto) 0.32 (0-0.5) K/uL Baso # (Auto) 0.04 (0-0.2) K/uL PT (9.0-12.0) Seconds INR (0.9-1.1) Sodium (136-145) mmol/L Potassium (3.5-5.1) mmol/L Chloride (98-107) mmol/L Carbon Dioxide (21-32) mmol/L Anion Gap (3-11) BUN (7-18) mg/dl Creatinine (0.6-1.4) mg/dl Est Cr Clr Drug Dosing ml/min Est GFR ( Amer) Est GFR (Non-Af Amer) BUN/Creatinine Ratio (10-20) Glucose (70-99) mg/dl Calcium (8.5-10.1) mg/dl Magnesium (1.8-2.4) mg/dl Total Bilirubin (0.2-1) mg/dl AST (15-37) U/L ALT (12-78) U/L Alkaline Phosphatase (45-117) U/L Total Protein (6.4-8.2) gm/dl Albumin (3.4-5.0) gm/dl Globulin (2.5-4.0) gm/dl Albumin/Globulin Ratio (0.9-2) Hepatitis A IgM Ab NON-REACTIVE (NON-REACTIVE) Hepatitis A Ab Total NON-REACTIVE (NON-REACTIVE) PG Care Time/CCT Total # of Minutes Spent Total Time Spent with Patient: Total time spent is greater than 50% in coordination of care (as documented) at patient's floor/unit and/or counseling patient: (1) Syncope Syncope type: unspecified Qualified Code(s): R55 - Syncope and collapse
[2019-11-15] MEDS ORDERED: POLYETHYLENE (MIRALAX) 17 GM PACK PO PRN (11:59)
[2019-11-15] MEDS: OXYBUTYNIN CHLORIDE 5 MG TAB PO SCH ×2 (12:15→21:25)
--- NOTE | 2019-11-15 15:29 | Consultation Report ---
DATE OF CONSULTATION: 11/15/2019 GASTROINTESTINAL CONSULTATION REASON FOR EVALUATION: Abnormal liver test. HISTORY OF PRESENT ILLNESS: The patient is a 39-year-old [facility] inmate who had a heart attack on 10/30 and was transferred to [facility] where he had a stent placed. He presented back on 11/[address] elevation transmural ID in the anterolateral leads with elevated troponins. The patient was found to have 2 thrombi in the left ventricle and was started on IV heparin. He also was found on scans to have an infarct in the right kidney consistent with an embolized thrombus. On admission, his transaminases were in the 100 range, his bilirubin was 2.7, alkaline phosphatase was normal. His atorvastatin was held. His bilirubin has returned to normal, but his SGOT and SGPT have continued to rise. Alkaline phosphatase has remained normal. He has had a CT scan and ultrasound both showing normal liver and gallbladder. He states that his father required a liver transplant after receiving steroids, so it is unclear exactly what happened, but it sounds like he had ulcerative colitis with sclerosing cholangitis. The patient reports no signs of bloody diarrhea, in fact he has been somewhat constipated. GI consultation has been requested to evaluate the abnormal liver tests. PAST MEDICAL HISTORY: Remarkable for acute ID with a heart stent. He has no obvious risk factors for coronary disease. MEDICATIONS: Baby aspirin, atorvastatin, Plavix and metoprolol. ALLERGIES: None. FAMILY HISTORY: Positive for ulcerative colitis in his father with sclerosing cholangitis requiring a liver transplant. SOCIAL HISTORY: The patient is an inmate at [facility]. Does not smoke, does not drink. REVIEW OF SYSTEMS: Positive for nausea on admission and low-grade fevers on admission. Remainder is negative. PHYSICAL EXAMINATION: GENERAL: The patient appears in no acute distress. VITAL SIGNS: Normal. He is afebrile. ABDOMEN: Soft. There are no scars. Bowel sounds are present. There are no masses, tenderness, or hepatosplenomegaly. IMPRESSION AND PLAN: The patient has elevated transaminases and had an elevated bilirubin on admission. I suspect that he has multifactorial conditions contributing to these blood test abnormalities. Imaging of his liver is normal. He was on atorvastatin, which could potentially cause some abnormal liver tests. He had a myocardial infarction and a renal infarct, which can contribute to an elevation in the SGOT or the AST. SGPT is found primarily only in liver and skeletal muscle and he may have had a little bit of hemolysis contributing to the elevated bilirubin. I plan on checking for other potential causes. We will check for alpha 1 antitrypsin deficiency, hemochromatosis. He has already been checked for hepatitis A, B and C, which were negative. We will check for ceruloplasmin and will get an IBD serologies as well. We will continue to follow the patient.
[2019-11-15] MEDS: WARFARIN SOD 5 MG TAB PO SCH (17:15)
[2019-11-15] MEDS: TAMSULOSIN HCL 0.4 MG CAP PO SCH (21:25)
[2019-11-16] MEDS: cefTRIAXone SODIUM 2,000 MG in DEXTROSE 5% 50 ML IV SCH (00:42)
[2019-11-16 07:57] LABS: INR 1.9 (0.9-1.1); Prothrombin Time 18.4 Seconds (9.0-12.0)
[2019-11-16 08:15] LABS: Albumin Level 2.4 gm/dl (3.4-5.0); BUN Creatinine Ratio 14.4 (10-20); Creatinine Clr Calc Pharmacy 125.7 ml/min; Est GFR (African American) 108.3; Est GFR (Non-African American) 93.5; Potassium 4.4 mmol/L (3.5-5.1)
[2019-11-16 08:18] LABS: Albumin Globulin Ratio 0.5 (0.9-2); Bilirubin,Total 0.4 mg/dl (0.2-1); Total Protein 7.4 gm/dl (6.4-8.2)
[2019-11-16] MEDS: ASPIRIN 81 MG ECTAB PO SCH (08:25)
[2019-11-16] MEDS: OXYBUTYNIN CHLORIDE 5 MG TAB PO SCH ×2 (08:25→20:39)
[2019-11-16] MEDS: METOPROLOL SUCC 25MG EXT REL TAB PO SCH ×2 (08:25→20:38)
[2019-11-16] MEDS: CLOPIDOGREL BISULFATE 75 MG TAB PO SCH (08:25)
[2019-11-16] MEDS: ENOXAPARIN INJ 120 MG/0.8 ML SYR SQ SCH ×2 (11:18→21:17)
--- NOTE | 2019-11-16 15:46 | Progress Note ---
DATE: 11/16/2019 The patient had multiple tests drawn yesterday, most of which are pending. His LFTs including his AST and ALT are improving slightly. AST down to 173, ALT down to 292. Bilirubin and alkaline phosphatase are normal. Both his iron and iron binding capacity are low with saturation less than 10%, which pretty much rules out hemochromatosis. Alpha-1 antitrypsin, ceruloplasmin, RODERICK, tissue transglutaminase and IBD serologies are all pending at this time. I think his abnormal liver tests probably are multifactorial and may involve adverse reaction to the atorvastatin. There may be some component of the enzymes coming from his renal infarct or there may be a small ischemic event to the liver from a thrombus out of his left ventricle as well. We will await the results of the other tests before making any final recommendations. Dr. Mensah is covering over the weekend if there are any problems.
[2019-11-16] MEDS: WARFARIN SOD 7.5 MG TAB PO SCH (17:10)
--- NOTE | 2019-11-16 19:32 | Hospitalist Progress Note ---
Date of Service November 16, 2019 Assessment & Plan (1) Left ventricular thrombus: Initially seen on CT a/p on 11/07. Echo on 11/08 showed pedunculated apical thrombus. Secondary to hypokinesis from recent STEMI With right renal infarct, no other evidence of stroke or infarct elsewhere at this time although it is possible he is a small infarct of the liver given elevated AST and ALT - INR therapeutic--> have since dcd heparin gtt - continue Warfarin 7.5mg daily now given subtherapeutic INR today -Bridge with Lovenox 1 mg/kilogram every 12 hours until INR therapeutic again -Will need at least 3 months of anticoagulation and then reassessment with ECHO, f/u with Cardiology -appreciate Cardio consultation - Monitor INR in AM (2) Fever: Continued to have fevers daily x 6-7 days, now resolved for several days -initially had some concern for viral illness as he was noted to have N/V/D, but most likely from renal infarct and possible UTI - UA on 11/09 showed blood (expected in renal infarct), but no sign of infection. -Concern for bacteremia, so he was started on ceftriaxone. However, renal infarct itself can cause fevers (10% per UpToDate and widely noted in multiple primary sources). Could explain the leukocytosis as well. - Ceftriaxone given from admission until 11/10 when it was stopped Then because of persistent fevers and gross hematuria on 11/12, repeat UA appeared possibly infected--> restarted ceftriaxone 11/12 -follow repeat urine cx-no growth - Blood cultures from 11/07 & 11/09, and 11/13 are negative -continue to follow - CXR on 11/09 showed no infiltrates, although he is splinting due to pain and this could also be causing atelectasis and fever--> incentive spirometry and pain control encouraged -now remains afebrile x 72 hrs - Right renal ultrasound on 11/10 showed no fluid collection or abscess,and due to the fevers persisting, repeated imaging with Renal US on 11/13 again with heterogeneity and 5cm infarct but no abscess - Consult Urology for further recommendations-appreciated as below -Okay to DC ceftriaxone (3) Renal infarct: Presented for right flank pain; found to have an embolic right renal infarct. - Anticoagulation as above -continue oxycodone IR prn although no longer using this -continue APAP prn -with fevers as above now resolved -with gross hematuria as below but Urol does not feel this is related to the infarct-improving but continues (4) Gross hematuria: Developed on 11/12, could be secondary to renal infarct vs Art trauma, but Urol feels not related to infarct. Exacerbated by heparin gtt and coumadin use Mild hematuria persists and causing bladder spasms which have improved somewhat with starting oxybutynin -dcd Art 11/14 and passed trial of void -Consult Urology appreciated -follow CBC-hgb stable -Increase oxybutynin to 5mg po tid today to improve symptoms -If not improving, will reconsult urology (5) Elevated LFTs: Persistently elevated AST and ALT now starting to improve after being up in the 200s-300 range TBili was high initially and is now back to normal No abnormalities on imaging of liver or GB Could be from perhaps fevers or inflammation from renal infarct in proximity? Perhaps small liver infarct although none seen on imaging Liver does not appear fatty or cirrhotic on CT or US Gallbladder normal Was also recently started on atorvastatin with recent STEMI--> could be from this although would not cause elevated TBili Hep A, B and C negative Iron studies normal essentially ruling out hemochromatosis -follow LFTs -continue to hold statin and once LFTs normalize (hopefully), should be restarted on a new statin, perhaps Crestor -pt very concerned due to family history of UC, liver cirrhosis requiring transplant --> consult GI for further opinion-appreciated -Ceruloplasmin, alpha-1 antitrypsin, autoimmune antibody work-up and S cerevisiae titers all pending (6) Acute anterior wall [place]: Occurred on 10/30/2019 with PCI at [facility] to the proximal LAD. Echo shows EF 40-45%. - Continue ASA/Plavix, metoprolol changed to Toprol XL as is on his dc summary from [facility] -holding statin as above for elevated LFTs and will need to trial Crestor after LFTs improve - Will need triple therapy for at least a month per cardiology. (7) Urinary retention: On 11/09, he had significant suprapubic discomfort and was unable to urinate. PVR showed 400 mL. Art placed with ~400 mL return of urine. - Started tamsulosin that evening (11/09) -now with hematuria as above, improving -could be from opioids, severe constipation -constipation now resolved, not using opioids now -Consult Urology appreciated -continue treating constipation -passed TOV and no further retention on PVR (8) Syncope: Unknown cause. Patient reports that he was standing in line for food and just woke up on the floor. Concerning for arrhythmia, though none seen on telemetry so far. Stroke also possible, though no focal exam findings. - Monitor on telemetry -> No events so far this admission. -orthostatics negative (9) Elevated troponin: Trending down from original STEMI. Seen by cardiology without concern for acute incident. - No inpatient needs (10) CAD (coronary artery disease), [place] coronary artery: as above, with STEMI 10/30/19 (11) Ischemic cardiomyopathy: EF 40-45% since recent STEMI -continue Toprol 25 bid -added lisinopril 2.5mg daily as per Cardio not volume overloaded (12) Constipation: Now resolved with aggressive bowel regimen -worsened by immobility, opioid use Contributed to urinary retention -Continue to encourage ambulation, out of bed (13) Hyponatremia: Na+ down to 133 and now improved to 134, with insensible losses of fluid due to fevers and mild dehydration? He is also not drinking as much as he is afraid to urinate due to bladder spasms with hematuria He is euvolemic on exam -follow BMP (14) DVT prophylaxis: Coumadin, bridging Lovenox Dispo: Back to [facility] after gross hematuria resolves as per recommendation by present physician, Dr. Rowan -Continue to work on bladder spasm pain control Subjective Continues to have hematuria, dark red urine. He continues to have bladder spasms after urination but is perhaps improved from yesterday since starting oxybutynin. He feels like his appetite is improved today but he is hesitant to drink as it hurts to urinate. No urinary retention noted by nursing staff. Denies chest pain or shortness of breath, no lightheadedness. Is moving his bowels well. Has minimal right-sided abdominal pain at this point. Remains afebrile. I discussed his case with the doctor at the [facility] today who does not recommend the patient return to [facility] until his hematuria is cleared up especially in the setting of being on chronic anticoagulation. Telemetry with normal sinus rhythm with rates in the 50s to 70s Review of Systems Review of Systems: All systems reviewed & are unremarkable except as noted in HPI & below Physical Exam Constitutional: WD/WN, vitals as above Eyes: + anicteric sclerae Neck: trachea midline, no thyromegaly Respiratory: normal respiratory effort, lungs clear to auscultation Auscultation: lungs clear to auscultation bilaterally Cardiovascular: RRR, no murmur, no edema Chest (Breasts): Chest: normal inspection of chest Gastrointestinal (Abdomen): Inspection/Auscultation: abdomen normal to inspection and normal bowel sounds; abdomen not distended Percussion/Palpation: + abdomen tender (very minimal tenderness suprapubic region, no Rt CVA tenderness) and abdomen soft Musculoskeletal: Extremities: extremities normal to inspection; no cyanosis and no clubbing Skin: no rashes, warm and dry Neurologic: moves all extremities and awake; no focal motor deficits Psychiatric: Orientation: alert, oriented to person, oriented to place, oriented to time and cooperative Eye Contact: good eye contact Speech: normal rate/rhythm/volume of speech Affect: + flat affect Lymphatic: no lymphedema Results & Data Vital Signs (Past 12 Hours) Vital Signs Temp Pulse Pulse Pulse Resp BP Pulse Ox 11/16/19 18:50 36.9 C 62 18 100/63 96 11/16/19 15:24 37.4 C 64 18 100/57 L 98 11/16/19 15:06 62 11/16/19 11:35 36.8 C 56 L 16 101/69 96 11/16/19 08:07 36.8 C 56 L 18 101/69 96 Laboratory Results Labs reviewed, AST and ALT are trending downward, INR only 1.9 today Iron studies normal, alpha-1 antitrypsin pending, ceruloplasmin pending, autoimmune antibodies and IBD work-up pending Blood cultures no growth to date, urine culture no growth PG Care Time/CCT Total # of Minutes Spent Total Time Spent with Patient: Total time spent is greater than 50% in coordination of care (as documented) at patient's floor/unit and/or counseling patient: (1) Syncope Syncope type: unspecified Qualified Code(s): R55 - Syncope and collapse
[2019-11-16] MEDS: ACETAMINOPHEN 325 MG TAB PO PRN (20:38)
[2019-11-16] MEDS: TAMSULOSIN HCL 0.4 MG CAP PO SCH (20:39)
[2019-11-17 05:31] LABS: Basophils # (auto) 0.04 K/uL (0-0.2); Basophils % (auto) 0.4 %; Eosinophils # (auto) 0.33 K/uL (0-0.5); Eosinophils % (auto) 3.5 %; Hematocrit (blood only) 38.2 % (42-52); Hemoglobin 12.9 g/dL (14.0-18.0); Immature Granulocytes # (auto) 0.39 K/uL (0.00-0.02); Immature Granulocytes % (auto) 4.2 %; Lymphocytes # (auto) 2.37 K/uL (1.2-3.4); Lymphocytes % (auto) 25.4 %; Mean Corpuscular Hemoglobin 28.9 pg (25-34); Mean Corpuscular Hgb Conc 33.8 g/dL (32-36); Mean Corpuscular Volume 85.5 fL (80-100); Mean Platelet Volume 9.3 fL (7.4-10.4); Monocytes # (auto) 1.05 K/uL (0.11-0.59); Monocytes % (auto) 11.2 %; Neutrophils # (auto) 5.16 K/uL (1.4-6.5); Neutrophils % (auto) 55.3 %; Platelet Count 434 K/uL (130-400); RDW Coefficient of Variation 12.2 % (11.5-14.5); RDW Standard Deviation 37.8 fL (36.4-46.3); Red Blood Count 4.47 M/uL (4.7-6.1); White Blood Count 9.34 K/uL (4.8-10.8)
[2019-11-17 05:50] LABS: Alanine Aminotransferase 278 U/L (12-78); Albumin Level 2.3 gm/dl (3.4-5.0); Aspartate Aminotransferase 138 U/L (15-37); BUN Creatinine Ratio 13.4 (10-20); Bilirubin Direct < 0.1 mg/dl (0-0.2); Blood Urea Nitrogen 15 mg/dl (7-18); Calcium 8.7 mg/dl (8.5-10.1); Carbon Dioxide 28 mmol/L (21-32); Chloride 104 mmol/L (98-107); Creatinine Clr Calc Pharmacy 117.5 ml/min; Est GFR (Non-African American) 86.3; Glucose 98 mg/dl (70-99); Magnesium 2.2 mg/dl (1.8-2.4); Potassium 4.6 mmol/L (3.5-5.1); Sodium 134 mmol/L (136-145)
[2019-11-17 05:51] LABS: INR 1.8 (0.9-1.1); Prothrombin Time 17.7 Seconds (9.0-12.0)
[2019-11-17 05:53] LABS: Alkaline Phosphatase 73 U/L (45-117); Bilirubin,Total 0.4 mg/dl (0.2-1); Creatine Kinase 139 U/L (39-308); Total Protein 7.1 gm/dl (6.4-8.2)
[2019-11-17] MEDS: OXYBUTYNIN CHLORIDE 5 MG TAB PO SCH ×3 (08:47→20:38)
[2019-11-17] MEDS: CLOPIDOGREL BISULFATE 75 MG TAB PO SCH (08:47)
[2019-11-17] MEDS: ASPIRIN 81 MG ECTAB PO SCH (08:47)
[2019-11-17] MEDS: METOPROLOL SUCC 25MG EXT REL TAB PO SCH ×2 (08:47→20:38)
[2019-11-17] MEDS: ENOXAPARIN INJ 120 MG/0.8 ML SYR SQ SCH ×2 (10:40→20:38)
--- NOTE | 2019-11-17 11:56 | Hospitalist Progress Note ---
Date of Service November 17, 2019 Assessment & Plan (1) Left ventricular thrombus: Initially seen on CT a/p on 11/07. Echo on 11/08 showed pedunculated apical thrombus. Secondary to hypokinesis from recent STEMI With right renal infarct, no other evidence of stroke or infarct elsewhere at this time although it is possible he is a small infarct of the liver given elevated AST and ALT - INR was therapeutic-and the heparin gtt was turned off, however INR dropped back downward - continue Warfarin 7.5mg daily now given subtherapeutic INR again today -Bridge with Lovenox 1 mg/kilogram every 12 hours until INR therapeutic again -Will need at least 3 months of anticoagulation and then reassessment with ECHO, f/u with Cardiology -appreciate Cardio consultation - Monitor INR in AM (2) Fever: Continued to have fevers daily x 6-7 days, now resolved for many days -initially had some concern for viral illness as he was noted to have N/V/D, but most likely from renal infarct and possible UTI - UA on 11/09 showed blood (expected in renal infarct), but no sign of infection. -Concern for bacteremia, so he was started on ceftriaxone. However, renal infarct itself can cause fevers (10% per UpToDate and widely noted in multiple primary sources). Could explain the leukocytosis as well. - Ceftriaxone given from admission until 11/10 when it was stopped Then because of persistent fevers and gross hematuria on 11/12, repeat UA appeared possibly infected--> restarted ceftriaxone 11/12 -follow repeat urine cx-no growth - Blood cultures from 11/07 & 11/09, and 11/13 are negative -continue to follow - CXR on 11/09 showed no infiltrates, although he is splinting due to pain and this could also be causing atelectasis and fever--> incentive spirometry and pain control encouraged -now remains afebrile x many days - Right renal ultrasound on 11/10 showed no fluid collection or abscess,and due to the fevers persisting, repeated imaging with Renal US on 11/13 again with heterogeneity and 5cm infarct but no abscess - Consult Urology for further recommendations-appreciated as below -Have since discontinued ceftriaxone on 11/16 (3) Renal infarct: Presented for right flank pain; found to have an embolic right renal infarct. - Anticoagulation as above -Continue pain control-although not really taking anything at this point -with fevers as above now resolved -with gross hematuria as below-spoke to urology on 11/17 who thinks that the hematuria could be coming from multiple sources including congestion with blood in the renal pelvis, Art trauma-urine is now turning dark brown to red which is a sign of old blood and hopefully the bleeding has stopped and he is flushing out the old blood -Renal function remains normal (4) Gross hematuria: Developed on 11/12, could be secondary to renal infarct vs Art trauma, Exacerbated by heparin gtt and coumadin use Mild hematuria persists but turning dark in color as above and causing bladder spasms which have improved somewhat with starting oxybutynin -dcd Art 11/14 and passed trial of void-continue to bladder scan every shift to ensure no retention -Consult Urology appreciated -follow CBC-hgb stable to slightly lower than previous -Continue oxybutynin 5mg po tid to improve symptoms (5) Elevated LFTs: Persistently elevated AST and ALT now continuing to improve after being up in the 200s-300 range TBili was high initially and is now back to normal No abnormalities on imaging of liver or GB Could be from perhaps fevers or inflammation from renal infarct in proximity? Perhaps small liver infarct although none seen on imaging Liver does not appear fatty or cirrhotic on CT or US Gallbladder normal Was also recently started on atorvastatin with recent STEMI--> could be from this although would not cause elevated TBili Hep A, B and C negative Iron studies normal essentially ruling out hemochromatosis -follow LFTs -continue to hold statin and once LFTs normalize (hopefully), should be restarted on a new statin, perhaps Crestor -pt very concerned due to family history of UC, liver cirrhosis requiring transplant --> consult GI for further opinion-appreciated -Ceruloplasmin, alpha-1 antitrypsin, autoimmune antibody work-up and S cerevisiae titers all pending (6) Acute anterior wall [place]: Occurred on 10/30/2019 with PCI at [facility] to the proximal LAD. Echo shows EF 40-45%. - Continue ASA/Plavix, metoprolol changed to Toprol XL as is on his dc summary from [facility] -holding statin as above for elevated LFTs and will need to trial Crestor after LFTs improve - Will need triple therapy for at least a month per cardiology -Should follow-up with cardiology after discharge (7) Urinary retention: On 11/09, he had significant suprapubic discomfort and was unable to urinate. PVR showed 400 mL. Art placed with ~400 mL return of urine. - Started tamsulosin that evening (11/09) -now with hematuria as above, improving -Was likely secondary to opioids, severe constipation, and clots from hematuria -constipation now resolved, not using opioids now -Consult Urology appreciated -passed TOV and no further retention on PVR -Continue BladderScan every shift (8) Syncope: Unknown cause. Patient reports that he was standing in line for food and just woke up on the floor. Concerning for arrhythmia, though none seen on telemetry so far. Stroke also possible, though no focal exam findings. - Monitor on telemetry -> only 5 beats of nonsustained V. tach on 11/17-this the first abnormality he has had in 10 days -orthostatics negative (9) Elevated troponin: Trending down from original STEMI. Seen by cardiology without concern for acute incident. - No inpatient needs (10) CAD (coronary artery disease), [place] coronary artery: as above, with STEMI 10/30/19 (11) Ischemic cardiomyopathy: EF 40-45% since recent STEMI -continue Toprol 25 bid -added lisinopril 2.5mg daily as per Cardio not volume overloaded (12) Constipation: Now resolved with aggressive bowel regimen -worsened by immobility, opioid use Contributed to urinary retention -Continue to encourage ambulation, out of bed (13) Hyponatremia: Na+ down to 133 and now improved to 134, with insensible losses of fluid due to fevers and mild dehydration? He is also not drinking as much as he is afraid to urinate due to bladder spasms with hematuria He is euvolemic on exam -follow BMP (14) DVT prophylaxis: Coumadin, bridging Lovenox Dispo: Back to [facility] skilled nursing after gross hematuria resolves as per recommendation by skilled nursing physician, Dr. Rowan -Continue to work on bladder spasm pain control Subjective Still having dark red-brown urine as per RN. Still with bladder spasms at the end of urination. Otherwise, not much abdominal pain. He continues to move his bowels. Denies chest pain or shortness of breath, no lightheadedness. He is eating all his meals. He is anxious to get out of the hospital. I discussed the case with urology who thought that the dark color of his urine is a sign of old blood and hopefully is flushing out the blood from his renal pelvis due to the infarct Telemetry with normal sinus rhythm with rates in the 50s to 60s, 5 beat run of V. tach Review of Systems Review of Systems: All systems reviewed & are unremarkable except as noted in HPI & below Physical Exam Constitutional: WD/WN, vitals as above Eyes: + anicteric sclerae Neck: trachea midline, no thyromegaly Respiratory: normal respiratory effort, lungs clear to auscultation Auscultation: lungs clear to auscultation bilaterally Cardiovascular: RRR, no murmur, no edema Chest (Breasts): Chest: normal inspection of chest Gastrointestinal (Abdomen): Inspection/Auscultation: abdomen normal to inspection and normal bowel sounds; abdomen not distended Percussion/Palpation: abdomen soft; abdomen nontender Musculoskeletal: Extremities: extremities normal to inspection; no cyanosis and no clubbing Skin: no rashes, warm and dry Neurologic: moves all extremities and awake; no focal motor deficits Psychiatric: Orientation: alert, oriented to person, oriented to place, oriented to time and cooperative Eye Contact: good eye contact Speech: normal rate/rhythm/volume of speech Lymphatic: no lymphedema Results & Data Vital Signs (Past 12 Hours) Vital Signs Temp Pulse Pulse Pulse Resp BP Pulse Ox 11/17/19 11:21 37.0 C 54 L 20 94/61 L 99 11/17/19 07:00 37.2 C 57 L 16 97/63 L 98 11/17/19 04:00 37.2 C 66 16 105/61 99 11/17/19 00:00 56 L Laboratory Results Labs reviewed, LFTs trending downward, hemoglobin fairly stable at 12.9 PG Care Time/CCT Total # of Minutes Spent Total Time Spent with Patient: Total time spent is greater than 50% in coordination of care (as documented) at patient's floor/unit and/or counseling patient: (1) Syncope Syncope type: unspecified Qualified Code(s): R55 - Syncope and collapse
--- NOTE | 2019-11-17 13:55 | Gastroenterology Progress Note ---
Date of Service November 17, 2019 Assessment & Plan (1) Elevated LFTs: TB normalized. AST and ALT continue to trend down. Noted liver normal on u/s and CT this admit. LFTs done 10/30/19 TB 1.5 and others normal. Suspect medication Lipitor which is being held versus shock liver or other systemic process causing eleavated LFTS. Fe sat low so no hemochormatosis, Hep A IgM and IgG neg, hep B sAg and Ab neg, HIV neg. Several other liver serologies pending. fhx of UC--no symptoms to suggest patient has disease. IBD serologies are pending. Subjective CC f/u elev LFTS HPI Pt denies abd pain. States he is tolerating po well. Review of Systems Respiratory: no dyspnea Cardiovascular: no chest pain Physical Exam Constitutional: WD/WN, vitals as above Respiratory: normal respiratory effort, lungs clear to auscultation Cardiovascular: RRR, no murmur, no edema Gastrointestinal (Abdomen): normal bowel sounds, soft, nontender, no hepatosplenomegaly Results & Data Vital Signs (Past 12 Hours) Vital Signs Temp Pulse Pulse Resp BP Pulse Ox 11/17/19 11:21 37.0 C 54 L 20 94/61 L 99 11/17/19 07:00 37.2 C 57 L 16 97/63 L 98 11/17/19 04:00 37.2 C 66 16 105/61 99
[2019-11-17] MEDS: WARFARIN SOD 7.5 MG TAB PO SCH (16:13)
[2019-11-17] MEDS: TAMSULOSIN HCL 0.4 MG CAP PO SCH (20:39)
[2019-11-18 05:48] LABS: Basophils # (auto) 0.04 K/uL (0-0.2); Basophils % (auto) 0.4 %; Eosinophils # (auto) 0.29 K/uL (0-0.5); Eosinophils % (auto) 3.1 %; Hematocrit (blood only) 38.3 % (42-52); Immature Granulocytes # (auto) 0.19 K/uL (0.00-0.02); Lymphocytes # (auto) 2.82 K/uL (1.2-3.4); Lymphocytes % (auto) 29.8 %; Mean Corpuscular Hemoglobin 29.2 pg (25-34); Mean Corpuscular Hgb Conc 33.9 g/dL (32-36); Mean Corpuscular Volume 86.1 fL (80-100); Mean Platelet Volume 9.2 fL (7.4-10.4); Monocytes # (auto) 1.02 K/uL (0.11-0.59); Monocytes % (auto) 10.8 %; Neutrophils # (auto) 5.11 K/uL (1.4-6.5); Neutrophils % (auto) 53.9 %; Platelet Count 477 K/uL (130-400); RDW Coefficient of Variation 12.4 % (11.5-14.5); RDW Standard Deviation 39.1 fL (36.4-46.3); Red Blood Count 4.45 M/uL (4.7-6.1); White Blood Count 9.47 K/uL (4.8-10.8)
[2019-11-18 05:57] LABS: INR 1.8 (0.9-1.1); Prothrombin Time 17.6 Seconds (9.0-12.0)
[2019-11-18 06:24] LABS: Albumin Level 2.4 gm/dl (3.4-5.0); Calcium 8.8 mg/dl (8.5-10.1); Creatinine Clr Calc Pharmacy 124.3 ml/min; Est GFR (African American) 107.1; Est GFR (Non-African American) 92.4; Potassium 4.8 mmol/L (3.5-5.1)
[2019-11-18 06:27] LABS: Albumin Globulin Ratio 0.5 (0.9-2); Bilirubin,Total 0.4 mg/dl (0.2-1); Globulin 4.7 gm/dl (2.5-4.0); Total Protein 7.1 gm/dl (6.4-8.2)
[2019-11-18] MEDS: CLOPIDOGREL BISULFATE 75 MG TAB PO SCH (08:44)
[2019-11-18] MEDS: METOPROLOL SUCC 25MG EXT REL TAB PO SCH ×2 (08:44→21:37)
[2019-11-18] MEDS: ASPIRIN 81 MG ECTAB PO SCH (08:45)
[2019-11-18] MEDS: OXYBUTYNIN CHLORIDE 5 MG TAB PO SCH ×3 (08:45→21:37)
[2019-11-18] MEDS: ENOXAPARIN INJ 120 MG/0.8 ML SYR SQ SCH ×2 (08:46→21:37)
--- NOTE | 2019-11-18 10:53 | Hospitalist Progress Note ---
Date of Service November 18, 2019 Assessment & Plan (1) Left ventricular thrombus: Initially seen on CT a/p on 11/07. Follow-up echo on 11/08 showed pedunculated LV apical thrombus. Secondary to hypokinesis from recent STEMI on 10/30/2019 With right renal infarct as below, no other evidence of stroke or infarct elsewhere at this time although it is possible he is a small infarct of the liver given elevated AST and ALT - INR was therapeutic-and the heparin gtt was turned off, however INR dropped back down - continue Warfarin 7.5mg daily which is an increase dose since 11/16 -Continue to Bridge with Lovenox 1 mg/kilogram every 12 hours until INR therapeutic again-the residential did not have Lovenox available and would take at least 48 hours to order in when I checked on Tuesday-he will not likely need it by Tuesday -Will need at least 3 months of anticoagulation and then reassessment with ECHO, f/u with Cardiology -appreciate Cardio consultation - Monitor INR in AM (2) Fever: Initially, he had fevers daily x 6-7 days, now resolved for many days -On admission, there was concern for viral illness as he was noted to have N/V/D, but most likely from renal infarct - UA on 11/09 showed blood (expected in renal infarct), but no sign of infe ction. -Concern for bacteremia, so he was started on ceftriaxone. However, renal infarct itself can cause fevers (10% per UpToDate and widely noted in multiple primary sources). Could explain the leukocytosis as well. - Ceftriaxone given from admission until 11/10 when it was stopped -Then because of persistent fevers and gross hematuria on 11/12, repeat UA appeared possibly infected--> restarted ceftriaxone 11/12 -follow repeat urine cx-no growth - Blood cultures from 11/07 & 11/09, and 11/13 are negative -continue to follow - CXR on 11/09 showed no infiltrates -now remains afebrile x many days - Right renal ultrasound on 11/10 showed no fluid collection or abscess,and due to the fevers persisting, repeated imaging with Renal US on 11/13 again with heterogeneity and 5cm infarct but no abscess - Consult Urology for further recommendations-appreciated as below -Have since discontinued ceftriaxone on 11/16 (3) Renal infarct: Presented for right flank pain; found to have an embolic right renal infarct. Pain is now resolved - Anticoagulation as above for LV thrombus -Continue pain control-although not really taking anything at this point -with fevers as above now resolved -with gross hematuria as below-spoke to urology on 11/17 who thinks that the hematuria could be coming from multiple sources including vascular congestion with blood in the renal pelvis, Art trauma-urine is now turning dark brown to red which is a sign of old blood and hopefully the bleeding has stopped and he is flushing out the old blood -Renal function remains normal (4) Gross hematuria: Developed on 11/12, could be secondary to renal infarct and Art trauma, Exacerbated by heparin gtt and coumadin use Mild hematuria persists but turning dark in color as above and causing bladder spasms which have resolved with starting oxybutynin -dcd Art 11/14 and passed trial of void-continue to bladder scan every shift to ensure no retention -Consult Urology appreciated -follow CBC-hgb stable to slightly lower than previous -Continue oxybutynin 5mg po tid to improve symptoms Urology reports that hematuria after a large renal infarct could go on for weeks-this is expected and therefore I believe he should be able to return to the residential as soon as his INR is therapeutic as above (5) Elevated LFTs: Persistently elevated AST and ALT now continuing to improve after being up in the 200s-300 range TBili was high initially and is now back to normal No abnormalities on imaging of liver or GB Could be from high intensity statin which commenced on 10/30, shock liver from initial hypotension and syncope, or perhaps small liver infarct from thromboemb olus although none seen on imaging Liver does not appear fatty or cirrhotic on CT or US Gallbladder normal Hep A, B and C negative Iron studies normal essentially ruling out hemochromatosis Ceruloplasmin, alpha-1 antitrypsin, autoimmune antibody work-up and S cerevisiae titers all pending as per GI -follow LFTs -continue to hold statin and once LFTs normalize (hopefully), should be restarted on a new statin, perhaps Crestor -pt very concerned due to family history of UC, liver cirrhosis requiring transplant --> consult GI for further opinion-appreciated and has no suspicion for UC, with low suspicion for any chronic liver disease (6) Acute anterior wall [place]: Occurred on 10/30/2019 with PCI at [facility] to the proximal LAD. Echo shows EF 40-45%. - Continue ASA/Plavix, metoprolol changed to Toprol XL as is on his dc summary from [facility] -holding statin as above for elevated LFTs and will need to trial Crestor after LFTs improve - Will need triple therapy with DAPT and Coumadin for at least a month per cardiology and then could go down to just Plavix and Coumadin most likely -Should follow-up with cardiology after discharge (7) Urinary retention: On 11/09, he had significant suprapubic discomfort and was unable to urinate. PVR showed 400 mL. Art placed with ~400 mL return of urine. - Started tamsulosin that evening (11/09) -now with hematuria as above -Was likely secondary to opioids, severe constipation, and clots from hematuria- now off opioids, constipation resolved -Consult Urology appreciated -passed TOV and no further retention on PVR -Continue BladderScan every shift while has hematuria (8) Syncope: Unknown cause but likely related to vasovagal from pain from renal infarct. Patient reports that he was standing in line for food and just woke up on the floor. Does not seem likely that he had a ventricular arrhythmia - Monitor on telemetry -> only 5 beats of nonsustained V. tach on 11/17-this the first abnormality he has had in 10 days -orthostatics negative (9) Elevated troponin: Trending down from original STEMI. Seen by cardiology without concern for acute incident. - No inpatient needs (10) CAD (coronary artery disease), [place] coronary artery: as above, with STEMI 10/30/19 (11) Ischemic cardiomyopathy: EF 40-45% since recent STEMI -continue Toprol 25 bid -added lisinopril 2.5mg daily as per Cardio not volume overloaded (12) Constipation: Now resolved with aggressive bowel regimen -worsened by immobility, opioid use Contributed to urinary retention -Continue to encourage ambulation, out of bed (13) Hyponatremia: Na+ down to 133 and now improved to 135 -Was likely secondary to insensible losses of fluid due to fevers and mild dehydration He is euvolemic on exam now -follow BMP (14) DVT prophylaxis: Coumadin, bridging Lovenox Dispo: Back to [facility] pending therapeutic INR and discontinuation of bridging Lovenox Also pending improvement of gross hematuria as per previous recommendation by residential physician, Dr. Rowan-however, urology here says that hematuria from renal infarct could go on for weeks at a time and is expected-should contact residential doctor again on Tuesday to inform him of this opinion and recommend discharge as it may be another 2 weeks before the hematuria actually resolves Subjective Patient continues to have hematuria-the color is more bright red today but no clots. No evidence of urinary retention. His bladder spasms are pretty much resolved at this point. Remains afebrile. No abdominal pain. He is still moving his bowels and tolerating p.o. He is very anxious to get out of the hospital and back to residential because he is not able to ambulate here much or go to congregational or write letters. No chest pain or shortness of breath, no lightheadedness. Review of Systems Review of Systems: All systems reviewed & are unremarkable except as noted in HPI & below Physical Exam Constitutional: WD/WN, vitals as above Eyes: + anicteric sclerae Neck: trachea midline, no thyromegaly Respiratory: normal respiratory effort, lungs clear to auscultation Auscultation: lungs clear to auscultation bilaterally Cardiovascular: RRR, no murmur, no edema Chest (Breasts): Chest: normal inspection of chest Gastrointestinal (Abdomen): Inspection/Auscultation: abdomen normal to inspection and normal bowel sounds; abdomen not distended Percussion/Palpation: abdomen soft; abdomen nontender Musculoskeletal: Extremities: extremities normal to inspection; no cyanosis and no clubbing Skin: no rashes, warm and dry Neurologic: moves all extremities and awake; no focal motor deficits Psychiatric: Orientation: alert, oriented to person, oriented to place, oriented to time and cooperative Eye Contact: good eye contact Speech: normal rate/rhythm/volume of speech Lymphatic: no lymphedema Results & Data Vital Signs (Past 12 Hours) Vital Signs Temp Pulse Resp BP Pulse Ox 11/18/19 07:12 37.0 C 55 L 16 106/70 100 11/18/19 03:11 37.1 C 54 L 17 105/70 99 11/17/19 23:54 37.4 C 66 17 97/64 L 100 Laboratory Results 11/18/19 11/18/19 11/18/19 Range/Units 05:31 05:31 05:31 WBC 9.47 (4.8-10.8) K/uL RBC 4.45 L (4.7-6.1) M/uL Hgb 13.0 L (14.0-18.0) g/dL Hct 38.3 L (42-52) % MCV 86.1 (80-100) fL MCH 29.2 (25-34) pg MCHC 33.9 (32-36) g/dL RDW Std Deviation 39.1 (36.4-46.3) fL RDW Coeff of Nic 12.4 (11.5-14.5) % Plt Count 477 H (130-400) K/uL MPV 9.2 (7.4-10.4) fL Immature Gran % (Auto) 2.0 % Neut % (Auto) 53.9 % Lymph % (Auto) 29.8 % Hardy % (Auto) 10.8 % Eos % (Auto) 3.1 % Baso % (Auto) 0.4 % Immature Gran # (Auto) 0.19 H (0.00-0.02) K/uL Neut # (Auto) 5.11 (1.4-6.5) K/uL Lymph # (Auto) 2.82 (1.2-3.4) K/uL Hardy # (Auto) 1.02 H (0.11-0.59) K/uL Eos # (Auto) 0.29 (0-0.5) K/uL Baso # (Auto) 0.04 (0-0.2) K/uL PT 17.6 H (9.0-12.0) Seconds INR 1.8 H (0.9-1.1) Sodium 135 L (136-145) mmol/L Potassium 4.8 (3.5-5.1) mmol/L Chloride 104 (98-107) mmol/L Carbon Dioxide 30 (21-32) mmol/L Anion Gap 1.0 L (3-11) BUN 13 (7-18) mg/dl Creatinine 1.03 (0.6-1.4) mg/dl Est Cr Clr Drug Dosing 124.3 ml/min Est GFR ( Amer) 107.1 Est GFR (Non-Af Amer) 92.4 BUN/Creatinine Ratio 13.0 (10-20) Glucose 93 (70-99) mg/dl Calcium 8.8 (8.5-10.1) mg/dl Total Bilirubin 0.4 (0.2-1) mg/dl AST 124 H (15-37) U/L ALT 285 H (12-78) U/L Alkaline Phosphatase 71 (45-117) U/L Total Protein 7.1 (6.4-8.2) gm/dl Albumin 2.4 L (3.4-5.0) gm/dl Globulin 4.7 H (2.5-4.0) gm/dl Albumin/Globulin Ratio 0.5 L (0.9-2) PG Care Time/CCT Total # of Minutes Spent Total Time Spent with Patient: Total time spent is greater than 50% in coordination of care (as documented) at patient's floor/unit and/or counseling patient: (1) Syncope Syncope type: unspecified Qualified Code(s): R55 - Syncope and collapse
[2019-11-18] MEDS: WARFARIN SOD 7.5 MG TAB PO SCH (15:56)
[2019-11-18] MEDS: TAMSULOSIN HCL 0.4 MG CAP PO SCH (21:37)
[2019-11-19 05:43] LABS: Basophils # (auto) 0.03 K/uL (0-0.2); Basophils % (auto) 0.4 %; Eosinophils # (auto) 0.22 K/uL (0-0.5); Eosinophils % (auto) 2.7 %; Hematocrit (blood only) 37.9 % (42-52); Hemoglobin 12.7 g/dL (14.0-18.0); Immature Granulocytes # (auto) 0.12 K/uL (0.00-0.02); Immature Granulocytes % (auto) 1.5 %; Lymphocytes # (auto) 2.67 K/uL (1.2-3.4); Lymphocytes % (auto) 32.8 %; Mean Corpuscular Hemoglobin 29.1 pg (25-34); Mean Corpuscular Hgb Conc 33.5 g/dL (32-36); Mean Corpuscular Volume 86.7 fL (80-100); Mean Platelet Volume 9.2 fL (7.4-10.4); Monocytes # (auto) 0.99 K/uL (0.11-0.59); Monocytes % (auto) 12.2 %; Neutrophils # (auto) 4.11 K/uL (1.4-6.5); Neutrophils % (auto) 50.4 %; Platelet Count 493 K/uL (130-400); RDW Coefficient of Variation 12.5 % (11.5-14.5); RDW Standard Deviation 40.1 fL (36.4-46.3); Red Blood Count 4.37 M/uL (4.7-6.1); White Blood Count 8.14 K/uL (4.8-10.8)
[2019-11-19 05:56] LABS: INR 1.9 (0.9-1.1); Prothrombin Time 18.8 Seconds (9.0-12.0)
[2019-11-19 06:13] LABS: BUN Creatinine Ratio 14.3 (10-20); Calcium 8.8 mg/dl (8.5-10.1); Creatinine Clr Calc Pharmacy 127.1 ml/min; Est GFR (African American) 109.6; Est GFR (Non-African American) 94.6; Potassium 4.8 mmol/L (3.5-5.1)
--- NOTE | 2019-11-19 07:27 | Gastroenterology Progress Note ---
Date of Service November 19, 2019 Assessment & Plan (1) Elevated LFTs: TB normalized. AST and ALT overall continue to trend down as of yesterday. LFTS this am pending. . Noted liver normal on u/s and CT this admit. LFTs done 10/30/19 TB 1.5 and others normal. Suspect medication Lipitor which is being held versus shock liver or other systemic process causing eleavated LFTS. Fe sat low so no hemochormatosis, Hep A IgM and IgG neg, hep B sAg and Ab neg, HIV neg. Several other liver serologies pending. fhx of UC--no symptoms to suggest patient has disease. IBD serologies are pending. Subjective cc f/u elevated LFTS HPI Pt denies abd pain. Review of Systems Respiratory: no dyspnea Cardiovascular: no chest pain Physical Exam Constitutional: WD/WN, vitals as above Respiratory: normal respiratory effort, lungs clear to auscultation Cardiovascular: RRR, no murmur, no edema Gastrointestinal (Abdomen): normal bowel sounds, soft, nontender, no hepatosplenomegaly Results & Data Vital Signs (Past 12 Hours) Vital Signs Temp Pulse Resp BP Pulse Ox 11/19/19 07:24 36.3 C L 58 L 18 100/66 99 11/19/19 02:49 37.0 C 58 L 18 95/62 L 100 11/18/19 23:14 37.1 C 64 17 100/66 99
[2019-11-19 07:37] LABS: Alanine Aminotransferase 350 U/L (12-78); Albumin Level 2.4 gm/dl (3.4-5.0); Alkaline Phosphatase 68 U/L (45-117); Aspartate Aminotransferase 163 U/L (15-37); Bilirubin Direct < 0.1 mg/dl (0-0.2); Bilirubin,Total 0.3 mg/dl (0.2-1); Total Protein 6.8 gm/dl (6.4-8.2)
[2019-11-19] MEDS: ENOXAPARIN INJ 120 MG/0.8 ML SYR SQ SCH (07:59)
[2019-11-19] MEDS: CLOPIDOGREL BISULFATE 75 MG TAB PO SCH (07:59)
[2019-11-19] MEDS: OXYBUTYNIN CHLORIDE 5 MG TAB PO SCH ×2 (07:59→14:02)
[2019-11-19] MEDS: ASPIRIN 81 MG ECTAB PO SCH (07:59)
[2019-11-19] MEDS: METOPROLOL SUCC 25MG EXT REL TAB PO SCH (07:59)
--- NOTE | 2019-11-19 14:28 | Discharge Summary ---
Date of Service November 19, 2019 Admission HPI Per Admitting Provider 39-year-old male from [place] with no significant past medical history until a anterior wall CO recently on [place] presents with syncopal episode. States that it was occurred this afternoon while standing in line. He said prior to passing out he felt dizzy, flushed, diaphoretic. He denied any chest pain or shortness of breath or acute lower extremity swelling. He states that he has had nausea and vomiting over the past 3 days. He also complains of right lower abdominal pain. Patient denies a family history of heart disease. He denies personal history of diabetes, hypertension or hyperlipidemia. He was a non-smoker. Patient denies history of intravenous drug use or other illicit drug use. Patient denies a history of HIV or hepatitis. Principal Diagnosis right renal infarct from cardiac thrombus Discharge Exam Constitutional WD/WN, vitals as above Eyes PERRL, conjunctivae normal, anicteric sclerae ENMT external ear and nose normal, oropharynx normal Neck trachea midline, no thyromegaly Respiratory normal respiratory effort, lungs clear to auscultation Cardiovascular RRR, no murmur, no edema Gastrointestinal (Abdomen) normal bowel sounds, soft, nontender, no hepatosplenomegaly Musculoskeletal no cyanosis or clubbing, extremities motor strength 5/5 Skin no rashes, warm and dry Neurologic patellar DTR's 2+ bilat, sensation intact and PERRL, EOMI, accommodation nl, no face palsy, no dysarthria Psychiatric A+Ox3, euthymic affect Lymphatic no cervical or axillary lymphadenopathy Discharge Data Allergies Allergy/AdvReac Type Severity Reaction Status Date / Time No Known Allergies Allergy Unverified 11/20/19 09:01 Consultations 11/07/19 20:00 ED Decision to Admit Stat 11/07/19 22:37 Consult Cardiology Routine Consult Case Management - Discharge Planning Routine 11/08/19 08:18 Consult Health Information Management Routine 11/12/19 12:46 Consult Urology Routine 11/15/19 11:40 Consult Gastroenterology Routine Procedures Performed Operation Date: 11/07/19 18:25 <No data on this case meets the specified criteria> Ordered Studies 11/07/19 18:24 CL Cath Imgs for PACS use only Stat 11/07/19 18:41 CT abd pelvis IV con only Stat 11/10/19 08:15 US abdomen limited Routine 11/13/19 11:30 US renal/blad retro comp Routine Hospital Course (1) Left ventricular thrombus: Initially seen on CT a/p on 11/07. Follow-up echo on 11/08 showed pedunculated LV apical thrombus. Secondary to hypokinesis from recent STEMI on 10/30/2019 With right renal infarct as below, no other evidence of stroke or infarct elsewhere at this time will continue Lovenox 111mg q12 for two more days continue Coumadin 8mg daily, INR is 1.9 note that he received Coumadin 7.5mg daily x 3 days and INR went from 1.7 to 1.9 recommend following INR closely and adjusting Coumadin as needed -Will need at least 3 months of anticoagulation and then reassessment with ECHO, f/u with Cardiology (2) Fever: Initially, he had fevers daily x 6-7 days, now resolved for a week -On admission, there was concern for viral illness as he was noted to have N/V/D, but most likely from renal infarct - UA on 11/09 showed blood (expected in renal infarct), but no sign of infection. -Concern for bacteremia, so he was started on ceftriaxone. However, renal infarct itself can cause fevers (10% per UpToDate and widely noted in multiple primary sources). Could explain the leukocytosis as well. - Ceftriaxone given from admission until 11/10 when it was stopped urine culture showed no growth - Blood cultures from 11/07 & 11/09, and 11/13 were all NEGATIVE - CXR on 11/09 showed no infiltrates - Right renal ultrasound on 11/10 showed no fluid collection or abscess,and due to the fevers persisting, repeated imaging with Renal US on 11/13 again with heterogeneity and 5cm infarct but no abscess (3) Renal infarct: Presented for right flank pain; found to have an embolic right renal infarct. Pain is now resolved - Anticoagulation as above for LV thrombus (Lovenox and Coumadin) -with gross hematuria as below-spoke to urology on 11/17 who thinks that the hematuria could be coming from multiple sources including vascular congestion with blood in the renal pelvis, Art trauma-urine is now turning dark brown to red which is a sign of old blood and hopefully the bleeding has stopped and he is flushing out the old blood -Renal function remains normal per urology, hematuria will persist for 2 weeks (4) Gross hematuria: Developed on 11/12, secondary to renal infarct and Art trauma, Exacerbated anticoagulation and antiplatelets Mild hematuria persists but turning dark in color as above and causing bladder spasms which have resolved with starting oxybutynin -dcd Art 11/14 and passed trial of void, no issues with retention for several days -Continue oxybutynin 5mg po tid to improve symptoms Urology reports that hematuria after a large renal infarct could go on for weeks recommend follow up with [facility] urology in a few weeks (5) Elevated LFTs: both AST and ALT mildly elevated TBili was high initially and is now back to normal No abnormalities on imaging of liver or GB Could be from high intensity statin which commenced on 10/30, shock liver from initial hypotension and syncope, or perhaps small liver infarct from thromboembolus although none seen on imaging Liver does not appear fatty or cirrhotic on CT or US Gallbladder normal Hep A, B and C negative Iron studies normal essentially ruling out hemochromatosis Ceruloplasmin, alpha-1 antitrypsin, autoimmune antibody work-up and S cerevisiae titers all pending as per GI continue to hold statin therapy until LFT normalize recommend repeating liver profile on 11/23 if LFT remain elevated, can arrange follow up with [facility], Dr. Mensah or Dr. Tello as they saw him in consultation at the hospital (6) Acute anterior wall CO: Occurred on 10/30/2019 with PCI at [facility] to the proximal LAD. Echo shows EF 40-45%. - Continue ASA/Plavix, Toprol -holding statin as above for elevated LFTs and will need to trial Crestor after LFTs improve - Will need triple therapy with DAPT and Coumadin for at least a month per cardiology and then could go down to just Plavix and Coumadin most likely should arrange for follow up with primary ranch cook at [facility] (7) Urinary retention: On 11/09, he had significant suprapubic discomfort and was unable to urinate. PVR showed 400 mL. Art placed with ~400 mL return of urine. - Started tamsulosin that evening (11/09) with good response -now with hematuria as above -Was likely secondary to opioids, severe constipation, and clots from hematuria- now off opioids, constipation resolved -Consult Urology appreciated -passed TOV and no further retention on PVR, has been doing well since 11/14 (8) Syncope: Unknown cause but likely related to vasovagal from pain from renal infarct. Patient reports that he was standing in line for food and just woke up on the floor. (9) Elevated troponin: Trending down from original STEMI. Seen by cardiology without concern for acute incident. - No inpatient needs (10) CAD (coronary artery disease), [place] coronary artery: as above, with STEMI 10/30/19 (11) Ischemic cardiomyopathy: EF 40-45% since recent STEMI -continue Toprol 25 bid -added lisinopril 2.5mg daily as per Cardio not volume overloaded (12) Constipation: Now resolved with aggressive bowel regimen -worsened by immobility, opioid use Contributed to urinary retention -Continue to encourage ambulation, out of bed (13) Hyponatremia: only down to 133 resolved Total Time Total Time Spent Total Time Spent (In Minutes): 35 minutes Total Time Includes: Examination of the Patient, Discharge Planning, Medication Reconciliation and Communication With Other Providers (discussed with cardiology, urology, Dr. Rowan at [facility]) Discharge Plan Discharge Items [facility] Disposition: [facility] Reason For Visit: RENAL INFARCT,LV THROMBUS Discharge Diagnosis: Renal infarct Left ventricle thrombus Elevated liver enzymes Condition on Discharge: Good Goals: treat thrombus with Coumadin and Lovenox follow up with urology Activity: Resume your previous activity Bathing: No limitations Exercise/Sports: Gradually increase as tolerated Weightbearing: Full weightbearing Non-emergency contact: Primary Care Provider, Freight Shipping Agent and Urologist Call non-emergency contact if: you have any medication questions, your symptoms worsen and you have a fever [facility] - Diet: Heart Healthy Addtl Attending Provider Instructions: Medications: - COUMADIN: dose just increased to 8mg a day, would continue this for now, INR is 1.9 on 11/19 - LOVENOX: 111mg every 12 hours, next dose due this evening at 9pm, would bridge for two days once INR therapeutic - LISINOPRIL: 2.5mg daily, added due to ischemic cardiomyopathy - FLOMAX: 0.4mg every evening to help with urinary retention - OXYBUTYNIN: take for the next two weeks to help with bladder spasms - OXYCODONE: take as needed for pain associated with renal infarct Renal infarct: due to embolism from left ventricle thrombus pain is improving, renal function stable per urology, expect patient to have hematuria for the next two weeks LV thrombus, due to recent CO with poor contraction, blood pooling treated with Lovenox, started on Coumadin per cardiology, will need at least 3 months of anticoagulation recommend follow up echocardiogram with [facility] cardiology in 3 months before stopping Coumadin CAD with recent CO continue aspirin, Plavix and Coumadin for one month after one month the aspirin can be stopped and continue Coumadin and Plavix could resume aspirin once patient is off the Coumadin but that will not be for several months Elevated LFT AST and ALT up slightly, holding statin would recommend repeating liver profile on Thursday 11/23, follow LFT until normal recommend resuming statin once LFT normal but would try Crestor instead of Lipitor FOLLOW UP - [facility] - [facility] cardiology in 3 months for repeat echo, determine if Coumadin can be stopped - [facility] urology in 2-3 weeks for follow up on hematuria, urinary retention and renal infarct Pending Studies at Discharge: No Stand-Alone Forms: My [facility] [address] Skilled Items Patient informed of condition?: Yes Discharge Level of Care: Other Communicable Disease: No Discharge Prognosis: Stable Lines: None Urinary Catheter: No Medications and DC Order Prescriptions: Continued clopidogrel [Plavix] 75 mg Tablet 75 mg PO QAM RF: 0 aspirin [Aspir-81] 81 mg Tablet,Delayed Release (Dr/Ec) 81 mg PO QAM RF: 0 metoprolol succinate [Toprol XL] 25 mg Tablet Extended Release 24 Hr 25 mg PO BID RF: 0 Discontinued atorvastatin 80 mg Tablet 80 mg PO HS RF: 0 No Action atorvastatin 80 mg Tablet 80 mg PO HS RF: 0 warfarin [Coumadin] 4 mg tablet 8 mg PO HS RF: 0 enoxaparin [Lovenox] 120 mg/0.8 mL syringe 111 mg subcut BID RF: 0 Discharge Orders: Discharge Order (Routine); Ordered 11/19/19 Ordered By: Jackson Urias Admission Data Admit Date/Time: 11/07/19 21:42 Attending Provider: Jackson Urias Admit Provider: Alexander Hough Primary Care Provider: [facility] Other Providers: Pernell Alarcon ; Reinaldo Zarco ; Hu Stephens ; Unruly Tello Other Interventions: Discharge Summary Assessment (RN) Last Done: 11/19/19 14:47 DC Date/Time DO NOT enter until pt leaves facility: 11/19/19 15:57
[2019-11-19] MEDS ORDERED: WARFARIN SOD 4 MG TAB PO SCH (16:00)
[2019-11-19] MEDS ORDERED: ENOXAPARIN INJ 120 MG/0.8 ML SYR SQ SCH (21:00)
== END 2019-11-19 15:57 | DRG 281 ==
LOC: ED 18:17 → 1E 21:42 → SUATTDRO 21:42 → 2S 11-09 12:39

== ENCOUNTER 2019-11-20 08:37 | Inpatient (IN) ==
[2019-11-20] MEDS ORDERED: ACETAMINOPHEN 325 MG TAB PO STA (09:17)
--- NOTE | 2019-11-20 09:20 | Emergency Department Note ---
ED Visit Note I assisted Dr. Bansal in the care of this patient. . Resident Activity Tracking Resident Involvement: Resident Care Provided Care Provided: Adult ED
[2019-11-20] MEDS ORDERED: MoRPHine SULFATE 2 MG/ML CARP IV STA ×2 (09:27→21:01)
[2019-11-20] MEDS ORDERED: SODIUM CHLORIDE 0.9% 1000ML 1,000 ML IV SCH ×2 (09:30→11:50)
[2019-11-20 09:35] LABS: Basophils # (auto) 0.01 K/uL (0-0.2); Basophils % (auto) 0.2 %; Eosinophils # (auto) 0.18 K/uL (0-0.5); Eosinophils % (auto) 2.8 %; Hematocrit (blood only) 41.9 % (42-52); Immature Granulocytes # (auto) 0.05 K/uL (0.00-0.02); Immature Granulocytes % (auto) 0.8 %; Lymphocytes # (auto) 1.86 K/uL (1.2-3.4); Lymphocytes % (auto) 28.5 %; Mean Corpuscular Hemoglobin 28.9 pg (25-34); Mean Corpuscular Hgb Conc 33.4 g/dL (32-36); Mean Corpuscular Volume 86.4 fL (80-100); Mean Platelet Volume 9.1 fL (7.4-10.4); Monocytes # (auto) 0.67 K/uL (0.11-0.59); Monocytes % (auto) 10.3 %; Neutrophils # (auto) 3.76 K/uL (1.4-6.5); Neutrophils % (auto) 57.4 %; Platelet Count 521 K/uL (130-400); RDW Coefficient of Variation 12.4 % (11.5-14.5); RDW Standard Deviation 39.4 fL (36.4-46.3); Red Blood Count 4.85 M/uL (4.7-6.1); White Blood Count 6.53 K/uL (4.8-10.8)
--- NOTE | 2019-11-20 09:38 | XRay Report ---
XR chest 1V portable CLINICAL HISTORY: 39 years-old Male presenting with dizzy. TECHNIQUE: Portable upright AP view of the chest was obtained. COMPARISON: 11/09/2019. FINDINGS: Cardiomediastinal silhouette normal. No focal opacity. No large effusion or pneumothorax. Osseous str uctures normal. Upper abdomen normal. IMPRESSION: 1. No acute cardiopulmonary disease. ACT 112: Negative or not required by law. Electronically signed by: Travon Marroquin M.D. 11/20/2019 9:37 AM
[2019-11-20 09:47] LABS: INR 1.8 (0.9-1.1); Partial Thromboplastin Ratio 1.3; Partial Thromboplastin Time 34.5 Seconds (21.0-31.0); Prothrombin Time 17.3 Seconds (9.0-12.0)
[2019-11-20 09:52] LABS: Albumin Level 2.7 gm/dl (3.4-5.0); BUN Creatinine Ratio 11.3 (10-20); Creatinine Clr Calc Pharmacy 119.1 ml/min; Est GFR (African American) 104.6; Est GFR (Non-African American) 90.2; Potassium 4.7 mmol/L (3.5-5.1)
[2019-11-20 09:58] LABS: Albumin Globulin Ratio 0.6 (0.9-2); Bilirubin,Total 0.4 mg/dl (0.2-1); Globulin 4.9 gm/dl (2.5-4.0); Total Protein 7.6 gm/dl (6.4-8.2); Troponin I 0.087 ng/ml (0-0.045)
[2019-11-20] MEDS ORDERED: IOVERSOL 100ml IV PRN (10:33)
--- NOTE | 2019-11-20 10:41 | CT Scan Report ---
HEAD CT NONCONTRAST CT DOSE: 823.94 mGycm HISTORY: Altered mental status. TECHNIQUE: Multiaxial CT images of the head were performed without the use of intravenous contrast. A utomated exposure control was utilized for this study. A dose lowering technique was utilized adheri ng to the principles of ALARA. Comparison: None. Findings: Small retention cyst within the right maxillary sinus. The mastoid air cells are clear. The calvarium and skull base are intact. The ventricles and sulci are within normal limits. There is no mass, hematoma, midline shift, or acute infarct. Impression: No acute intracranial abnormality. ACT 112: Negative or not required by law. Electronically signed by: Bobby Adams M.D. 11/20/2019 10:40 AM
--- NOTE | 2019-11-20 10:54 | CT Scan Report ---
ABDOMEN AND PELVIS CT WITH IV CONTRAST CT DOSE: 1115.50 mGycm HISTORY: R renal infarct 11/07, rule out hemorrhage on antico TECHNIQUE: Multiaxial CT images of the abdomen and pelvis were performed following the use of intrave nous contrast. A dose lowering technique was utilized adhering to the principles of ALARA. COMPARISON STUDY: Abdomen and pelvis CT 11/07/2019. FINDINGS: The lung bases are essentially clear. No pneumoperitoneum. No pneumatosis. No fractures wit hin the visualized osseous structures. The liver, gallbladder, spleen, adrenal glands, and pancreas a re unremarkable. Normal bladder. No retroperitoneal lymphadenopathy. Bilateral renal arteries and vei ns are patent. Normal left kidney. Multifocal areas of diminished/heterogeneous enhancement within th e right kidney. This has progressed and is suggestive of evolving renal infarcts. A superimposed pyel onephritis cannot be excluded. No retroperitoneal hematoma. No hydronephrosis. No bowel wall thickeni ng or obstruction. Normal appendix. Mild right perinephric edema/fat stranding has also slightly prog ressed. No change in the subendocardial hypodensity within the left ventricular apex suggestive of an old infarct. The left ventricular thrombus has also resolved in the interval. IMPRESSION: 1. Multifocal areas of diminished/heterogeneous enhancement within the right kidney. This has progres sed and is suggestive of evolving renal infarcts. A superimposed pyelonephritis cannot be excluded. 2. No retroperitoneal hematoma. 3. The left ventricular thrombus has resolved in the interval. ACT 112: Negative or not required by law. Electronically signed by: Bobby Adams M.D. 11/20/2019 10:52 AM
--- NOTE | 2019-11-20 10:56 | History & Physical Report ---
Date of Service November 20, 2019 Assessment & Plan (1) Elevated LFTs: AST and ALT trending up further, unsure the reason on review of record, they were elevated the entire stay, 12 days, but they were never as high as they are now bili and alk phose normal discussed with Dr. Mensah who also discussed with Dr. Tello recommended abdominal US, portal vein doppler, mesenteric doppler no evidence of portal vein thrombosis no mesenteric stenosis no evidence of liver infarcts on CT abdomen/pelvis hepatitis B/C was negative last admission, serology studies still pending statin has been on hold for over a week, if statin therapy was the etiology would think the LFT would have normalized will hydrate patient and check LFT in the AM, unclear etiology (2) Abdominal pain: mostly RLQ pain poor appetite, nausea, did not eat this morning CT abdomen/pelvis: no signs of appendicitis does have worsening renal infarcts which could be the source of pain, especially given the lack of other etiology he did not eat last night either, but he did eat a large lunch on 11/19 had a soft, liquid BM yesterday normal WBC, abd soft, minimal tenderness in RLQ (3) Renal infarct: getting worse on CT today, unclear why as he has been on anticoagulation per report, cannot r/o super imposed pyelonephritis no fever, WBC normal, only 5-10 WBC on UA no other clinical signs to suggest pyelonephritis, hold on antibiotics for now (4) Left ventricular thrombus: no current evidence on repeat CT today continue Lovenox and anticoagulation (5) Ischemic cardiomyopathy: will hold metoprolol as his blood pressure is low normal and HR in the 50- 60's give IV fluids as he appears dehydrated continue aspirin and Plavix History of Present Illness Chief Complaint: I just don't feel good Primary Care Provider: [facility] 39 yo male who was just discharged yesterday after two week stay for renal infarction on the right, cardiac thrombus, recent IA and transaminitis returned to the hospital in less than 24 hours complaining of abdominal pain, poor appetite, nausea, weakness. He felt well yesterday, ate his entire lunch prior to discharge and was relieved that he was getting out of the hospital. The plan on discharge was to continue Lovenox every 12 hours, Coumadin for anticoagulation for a cardiac thrombus and embolic renal infarct. His AST and ALT were slightly high on discharge with plans to repeat in several days. He says that last evening he started to have worsening abdominal pain in the RLQ and RUQ. He did not have an appetite last night or this morning. He had a BM yesterday while in the hospital that was soft but formed. He never vomited but he did have some nausea. No chest pain or dyspnea. No fever or chills. He felt really fatigued and weak. He admitted that he was feeling weak prior to discharge but that was likely due to two weeks in the hospital, deconditioning. In the ED his BP was low normal and HR was in the 50-60's. No fever. WBC 6k, Hb 14. INR was 1.8. Cr 1.0 and electrolytes stable. AST up from yesterday at 266 and ALT up at 467. Trop was 0.087 which was actually improving, still coming down from his IA two weeks ago. UA had some blood, only 5-[address] head were normal. CT abdomen/pelvis shows worsening/progression of the right renal infarctions. No other abnormalities. Asked to admit patient due to his elevated liver enzymes, abdominal pain. Allergies Allergy/AdvReac Type Severity Reaction Status Date / Time No Known Allergies Allergy Unverified 11/20/19 09:01 Home Medications Home Medications Medication Instructions Recorded Confirmed Type aspirin [Aspir-81] 81 mg PO QAM 11/07/19 11/20/19 History clopidogrel [Plavix] 75 mg PO QAM 11/07/19 11/20/19 History metoprolol succinate [Toprol XL] 25 mg PO BID 11/12/19 11/20/19 History atorvastatin 80 mg PO HS 11/20/19 11/20/19 History enoxaparin [Lovenox] 111 mg SUBCUT BID 11/20/19 11/20/19 History warfarin [Coumadin] 8 mg PO HS 11/20/19 11/20/19 History Past Med/Surg History Medical History (Updated 11/20/19 @ 21:07 by Jackson Urias DO) Abnormal EKG Acute anterior wall IA Acute IA, lateral wall (Inactive) CAD (coronary artery disease), [place] coronary artery Chest pain (Inactive) Elevated LFTs Elevated troponin Ischemic cardiomyopathy (Acute) Left ventricular thrombus (Acute) Renal infarct (Acute) Surgical History H/O cardiac catheterization Hx of heart artery stent Family History Other No pertinent family history in first degree relatives Social History Preferred Language: Kinyarwanda Communication Ability: Effective Can Cleaner Required: No Beliefs That Will Affect Care: None Current Living Situation: Other Current Living Situation Comment: [facility] Other Information That Helps Us Care for You: No Feels Safe at Home: Yes Safety Concerns: Feels Safe At This Time Smoking Status: Never smoker Do You Dip or Chew Tobacco: No ; Second Hand Exposure: No ; Tobacco Cessation Education Requested by Patient: No Hx Alcohol Use: No Hx Substance Use: No Review of Systems Review of Systems: All systems reviewed & are unremarkable except as noted in HPI & below Physical Exam Constitutional: WD/WN, vitals as above + ill appearing, + diaphoretic and + lethargic; not in distress Eyes: PERRL, conjunctivae normal, anicteric sclerae ENMT: external ear and nose normal, oropharynx normal Neck: trachea midline, no thyromegaly Respiratory: normal respiratory effort, lungs clear to auscultation Cardiovascular: Rate/Rhythm: regular rhythm and + bradycardic Heart Sounds: normal S1 and normal S2; no murmur Extremities: normal capillary refill; no edema Gastrointestinal (Abdomen): Inspection/Auscultation: abdomen normal to inspection and normal bowel sounds; abdomen not distended Percussion/Palpation: + abdomen tender (mild TTP in RLQ) and abdomen soft; no guarding, abdomen not rigid and no hepatosplenomegaly Musculoskeletal: no cyanosis or clubbing, extremities motor strength 5/5 Skin: no rashes, warm and dry Neurologic: patellar DTR's 2+ bilat, sensation intact and PERRL, EOMI, accommodation nl, no face palsy, no dysarthria Psychiatric: A+Ox3, euthymic affect Lymphatic: no cervical or axillary lymphadenopathy Results & Data Vital Signs (Past 12 Hours) Vital Signs Temp Pulse Pulse Resp BP BP Pulse Ox 11/20/19 10:11 54 L 16 116/69 99 11/20/19 08:46 37.0 C 60 16 123/88 100 Laboratory Results Laboratory Results - last 24 hr 01/11/20/19 11/20/19 09:24 09:24 09:24 WBC 6.53 RBC 4.85 Hgb 14.0 Hct 41.9 L MCV 86.4 MCH 28.9 MCHC 33.4 RDW Std Deviation 39.4 RDW Coeff of Nic 12.4 Plt Count 521 H MPV 9.1 Immature Gran % (Auto) 0.8 Neut % (Auto) 57.4 Lymph % (Auto) 28.5 [place] % (Auto) 10.3 Eos % (Auto) 2.8 Baso % (Auto) 0.2 Immature Gran # (Auto) 0.05 H Neut # (Auto) 3.76 Lymph # (Auto) 1.86 [place] # (Auto) 0.67 H Eos # (Auto) 0.18 Baso # (Auto) 0.01 PT 17.3 H INR 1.8 H APTT 34.5 H PTT Ratio 1.3 Sodium 137 Potassium 4.7 Chloride 105 Carbon Dioxide 28 Anion Gap 4.0 BUN 12 Creatinine 1.05 Est Cr Clr Drug Dosing 119.1 Est GFR ( Amer) 104.6 Est GFR (Non-Af Amer) 90.2 BUN/Creatinine Ratio 11.3 Glucose 97 Calcium 9.0 Total Bilirubin 0.4 AST 266 H ALT 467 H Alkaline Phosphatase 77 Troponin I 0.087 H* Total Protein 7.6 Albumin 2.7 L Globulin 4.9 H Albumin/Globulin Ratio 0.6 L Lipase 112 Urine Color Urine Appearance Urine pH Ur Specific [place] Urine Protein Urine Glucose (UA) Urine Ketones Urine Blood Urine Nitrite Urine Bilirubin Urine Urobilinogen Ur Leukocyte Esterase Urine WBC (Auto) Urine RBC (Auto) U Hyaline Cast (Auto) U Epithel Cells (Auto) Urine Bacteria (Auto) 11/20/19 16:48 WBC RBC Hgb Hct MCV MCH MCHC RDW Std Deviation RDW Coeff of Nic Plt Count MPV Immature Gran % (Auto) Neut % (Auto) Lymph % (Auto) [place] % (Auto) Eos % (Auto) Baso % (Auto) Immature Gran # (Auto) Neut # (Auto) Lymph # (Auto) [place] # (Auto) Eos # (Auto) Baso # (Auto) PT INR APTT PTT Ratio Sodium Potassium Chloride Carbon Dioxide Anion Gap BUN Creatinine Est Cr Clr Drug Dosing Est GFR ( Amer) Est GFR (Non-Af Amer) BUN/Creatinine Ratio Glucose Calcium Total Bilirubin AST ALT Alkaline Phosphatase Troponin I Total Protein Albumin Globulin Albumin/Globulin Ratio Lipase Urine Color Red Urine Appearance Clear Urine pH 6.0 Ur Specific [place] 1.016 Urine Protein 2+ H Urine Glucose (UA) Negative Urine Ketones Negative Urine Blood 3+ H Urine Nitrite Negative Urine Bilirubin Negative Urine Urobilinogen Negative Ur Leukocyte Esterase Trace H Urine WBC (Auto) 5-10 H Urine RBC (Auto) >30 H U Hyaline Cast (Auto) 1-5 U Epithel Cells (Auto) 5-10 H Urine Bacteria (Auto) Negative Diagnostic Findings Abdominal US: normal Mesenteric arterial doppler: normal Portal vein US: normal study CXR: normal CT head: normal CT abdomen pelvis 1. Multifocal areas of diminished/heterogeneous enhancement within the right kidney. This has progressed and is suggestive of evolving renal infarcts. A superimposed pyelonephritis cannot be excluded. 2. No retroperitoneal hematoma. 3. The left ventricular thrombus has resolved in the interval. Code Status & VTE Plan Code Status full VTE Prophylaxis Plan VTE Prophylaxis will be ordered: Yes PG Care Time/CCT Total # of Minutes Spent Total Time Spent with Patient: Total time spent is greater than 50% in coordination of care (as documented) at patient's floor/unit and/or counseling patient:
[2019-11-20] MEDS ORDERED: ONDANSETRON INJ 2 MG/ML 2 ML VIAL IV PRN (11:50)
--- NOTE | 2019-11-20 12:56 | Emergency Department Note ---
Entered by Linda Villar acting as a scribe for Jere Bansal DO History of Present Illness General Chief complaint: Illness Time Seen by Provider: 11/20/19 08:43 Source: patient History of Present Illness Onset (ago): hour(s) (0645 this morning) Location: head (syncope) Pain Consistency: + other (episode) Quality: + other (pins and needles) Exacerbated By: not by eating Associated symptoms: + chest pain, + diaphoresis, + fever/chills (Positive chills. Negative fever. ), + loss of appetite, + syncope and + other (Positive light headedness, nose bleed. Negative jaw pain, back pain, arm pain, lower extremity edema. ); no shortness of breath Treatments prior to arrival: none The patient is a 39 year old male presenting to the Emergency Department complaining of an episode of syncope occurring at 0645 this morning. The patient reports that he went to the bathroom and suddenly became very light headed and had chills. He explains that he had chest pain that he describes as pins and needles and at that time was diaphoretic. He notes that he laid down on the bathroom floor and lost consciousness, not remembering how he got to the [facility] Emergency Department. He adds that he was recently discharged from the hospital 1 day ago and was feeling fatigued and had no appetite yesterday. The patient reports that he had a nose bleed all night last night and has been getting frequent nose bleeds since starting a blood thinner. He states that he had a bowel movement 1 day ago that produced loose brown stool. The patient denies shortness of breath, jaw pain, back pain, arm pain and lower extremity edema. Home Medications Home Medications Medication Instructions Recorded Confirmed Type aspirin [Aspir-81] 81 mg PO QAM 11/07/19 11/20/19 History clopidogrel [Plavix] 75 mg PO QAM 11/07/19 11/20/19 History metoprolol succinate [Toprol XL] 25 mg PO BID 11/12/19 11/20/19 History atorvastatin 80 mg PO 11/20/19 11/20/19 History enoxaparin [Lovenox] 111 mg SUBCUT BID 11/20/19 11/20/19 History warfarin [Coumadin] 8 mg PO 11/20/19 11/20/19 History Allergies Allergy/AdvReac Type Severity Reaction Status Date / Time No Known Allergies Allergy Unverified 11/20/19 09:01 Past Med/Surg History Medical History Abnormal EKG Acute anterior wall [place] Acute [place], lateral wall (Inactive) CAD (coronary artery disease), [place] coronary artery Chest pain (Inactive) Elevated troponin Surgical History H/O cardiac catheterization Hx of heart artery stent Family History Other No pertinent family history in first degree relatives Social History Preferred Language: Tajik Communication Ability: Effective 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 and A total of 10 systems reviewed and were otherwise negative Physical Exam Vital Signs Vital Signs - 24 hr 11/20/19 08:46 11/20/19 10:11 Temperature 37.0 C Temperature Source Oral Pulse Rate 60 Pulse Rate [Apical] 54 L Respiratory Rate 16 16 Blood Pressure 123/88 Blood Pressure [Right Arm] 116/69 Blood Pressure Mean 99 Blood Pressure Mean [Right Arm] 84 Pulse Oximetry 100 99 Oxygen Delivery Method Room Air Room Air Sepsis Recent Fever Within 48 Hours No Sepsis New/Unexplained Change in Mental Status No Sepsis Action Taken by Nursing No Action Required GENERAL: Patient is sitting up in bed. Ill appearing. Lethargic. Wearing shackles. EYE EXAM: normal conjunctiva, PERRL and EOM's grossly intact OROPHARYNX: no exudate, no erythema, lips, buccal mucosa, and tongue normal and mucous membranes are moist NECK: supple, no nuchal rigidity, no adenopathy, non-tender LUNGS: Clear to auscultation. Normal chest wall mechanics HEART: no murmurs, S1 normal and S2 normal ABDOMEN: Tender to palpation in RLQ. Abdomen soft, normo-active bowel sounds, no masses, no rebound or guarding. BACK: Back is symmetrical on inspection and there is no deformity, no midline tenderness, no CVA tenderness. SKIN: no rashes and no bruising UPPER EXTREMITIES: upper extremities are grossly normal. LOWER EXTREMITIES: No pitting edema. NEURO EXAM: Normal sensorium, cranial nerves II-XII intact, normal speech, no focal weakness in the arms or legs but difficulty lifting moving all extremities Course Course ED COURSE: Vital signs were reviewed and normal. The patients medical record was reviewed The above diagnostic studies were performed and reviewed. ED treatments and interventions as stated above. 0845: The patient was evaluated in room B2. A complete history and physical examination was performed. 0941: I discussed the patients case with Dr. Haroldo STONE hospitalist. He will evaluate the patient at bedside. 1021: I discussed the patients case with Dr. Adonay STONE hospitalist. He will evaluate the patient for further management. 1130: I updated the patient at this time. 1131: Upon reevaluation, I discussed my findings with the patient and he understands and agrees with the treatment plan. Based on the patients age, coexisting illnesses, exam and lab findings the decision to treat as an inpatient was made. The patient remained stable while under my care. The patient will be evaluated for further management. Administered Medications Sodium Chloride (Nss 1000ml) 1,000 mls @ 150 mls/hr IV .Q6H40M JULES Stop: 11/20/19 18:29 Last Admin: 11/20/19 12:30 Dose: 150 mls/hr Documented by: [id number] Ioversol (Optiray 320 100ml) 93 ml IV ONCE PRN PRN Reason: Interaction Checking Stop: 11/24/19 10:32 Last Admin: 11/20/19 10:34 Dose: 93 ml Documented by: [id number] Discontinued Medications Acetaminophen (Tylenol) 650 mg PO NOW STA Stop: 11/20/19 09:18 Last Admin: 11/20/19 09:32 Dose: Not Given Documented by: [id number] Sodium Chloride (Nss 1000ml) 1,000 mls @ 999 mls/hr IV .Q1H1M JULES Stop: 11/20/19 10:30 Last Infusion: 11/20/19 10:57 Dose: 0 mls/hr Documented by: [id number] Admin: 11/20/19 09:50 Dose: 999 mls/hr Documented by: [id number] Morphine Sulfate (Morphine Sulfate) 2 mg IV NOW STA Stop: 11/20/19 09:28 Last Admin: 11/20/19 09:34 Dose: Not Given Documented by: [id number] Medical Decision Making Differential Diagnosis Differential diagnosis includes etiologies such as benign positional vertigo, dehydration, hypovolemia, anemia, tumor, infection, hypoglycemia, electrolyte abnormalities, cardiac sources, intracerebral event, toxicologic, neurologic, as well as others were entertained. Medical Records Attestation: I reviewed the patient's medical records. Home Medications Current Medication List: was personally reviewed by me Laboratory Data Attestation: I reviewed the patient's lab results. Result diagrams: 11/20/19 09:24 11/20/19 09:24 Lab Results 11/20/19 11/20/19 11/20/19 Range/Units 09:24 09:24 09:24 WBC 6.53 (4.8-10.8) K/uL RBC 4.85 (4.7-6.1) M/uL Hgb 14.0 (14.0-18.0) g/dL Hct 41.9 L (42-52) % MCV 86.4 (80-100) fL MCH 28.9 (25-34) pg MCHC 33.4 (32-36) g/dL RDW Std Deviation 39.4 (36.4-46.3) fL RDW Coeff of Nic 12.4 (11.5-14.5) % Plt Count 521 H (130-400) K/uL MPV 9.1 (7.4-10.4) fL Immature Gran % (Auto) 0.8 % Neut % (Auto) 57.4 % Lymph % (Auto) 28.5 % [place] % (Auto) 10.3 % Eos % (Auto) 2.8 % Baso % (Auto) 0.2 % Immature Gran # (Auto) 0.05 H (0.00-0.02) K/uL Neut # (Auto) 3.76 (1.4-6.5) K/uL Lymph # (Auto) 1.86 (1.2-3.4) K/uL [place] # (Auto) 0.67 H (0.11-0.59) K/uL Eos # (Auto) 0.18 (0-0.5) K/uL Baso # (Auto) 0.01 (0-0.2) K/uL PT 17.3 H (9.0-12.0) Seconds INR 1.8 H (0.9-1.1) APTT 34.5 H (21.0-31.0) Seconds PTT Ratio 1.3 Sodium 137 (136-145) mmol/L Potassium 4.7 (3.5-5.1) mmol/L Chloride 105 (98-107) mmol/L Carbon Dioxide 28 (21-32) mmol/L Anion Gap 4.0 (3-11) BUN 12 (7-18) mg/dl Creatinine 1.05 (0.6-1.4) mg/dl Est Cr Clr Drug Dosing 119.1 ml/min Est GFR ( Amer) 104.6 Est GFR (Non-Af Amer) 90.2 BUN/Creatinine Ratio 11.3 (10-20) Glucose 97 (70-99) mg/dl Calcium 9.0 (8.5-10.1) mg/dl Total Bilirubin 0.4 (0.2-1) mg/dl AST 266 H (15-37) U/L ALT 467 H (12-78) U/L Alkaline Phosphatase 77 (45-117) U/L Troponin I 0.087 H* (0-0.045) ng/ml Total Protein 7.6 (6.4-8.2) gm/dl Albumin 2.7 L (3.4-5.0) gm/dl Globulin 4.9 H (2.5-4.0) gm/dl Albumin/Globulin Ratio 0.6 L (0.9-2) Lipase 112 (73-393) U/L Imaging Data Radiologist's Impression: Radiology results as stated below per my review and the radiologist's interpretation: HEAD CT NONCONTRAST CT DOSE: 823.94 mGycm HISTORY: Altered mental status. TECHNIQUE: Multiaxial CT images of the head were performed without the use of intravenous contrast. Automated exposure control was utilized for this study. A dose lowering technique was utilized adhering to the principles of ALARA. Comparison: None. Findings: Small retention cyst within the right maxillary sinus. The mastoid air cells are clear. The calvarium and skull base are intact. The ventricles and sulci are within normal limits. There is no mass, hematoma, midline shift, or acute infarct. Impression: No acute intracranial abnormality. ACT 112: Negative or not required by law. Electronically signed by: Bobby Adams M.D. 11/20/2019 10:40 AM ABDOMEN AND PELVIS CT WITH IV CONTRAST CT DOSE: 1115.50 mGycm HISTORY: R renal infarct 11/07, rule out hemorrhage on antico TECHNIQUE: Multiaxial CT images of the abdomen and pelvis were performed following the use of intravenous contrast. A dose lowering technique was utilized adhering to the principles of ALARA. COMPARISON STUDY: Abdomen and pelvis CT 11/07/2019. FINDINGS: The lung bases are essentially clear. No pneumoperitoneum. No pneumatosis. No fractures within the visualized osseous structures. The liver, gallbladder, spleen, adrenal glands, and pancreas are unremarkable. Normal bladder. No retroperitoneal lymphadenopathy. Bilateral renal arteries and veins are patent. Normal left kidney. Multifocal areas of diminished/heterogeneous enhancement within the right kidney. This has progressed and is suggestive of evolving renal infarcts. A superimposed pyelonephritis cannot be excluded. No retroperitoneal hematoma. No hydronephrosis. No bowel wall thickening or obstruction. Normal appendix. Mild right perinephric edema/fat stranding has also slightly progressed. No change in the subendocardial hypodensity within the left ventricular apex suggestive of an old infarct. The left ventricular thrombus has also resolved in the interval. IMPRESSION: 1. Multifocal areas of diminished/heterogeneous enhancement within the right kidney. This has progressed and is suggestive of evolving renal infarcts. A superimposed pyelonephritis cannot be excluded. 2. No retroperitoneal hematoma. 3. The left ventricular thrombus has resolved in the interval. ACT 112: Negative or not required by law. Electronically signed by: Bobby Adams M.D. 11/20/2019 10:52 AM XR chest 1V portable CLINICAL HISTORY: 39 years-old Male presenting with dizzy. TECHNIQUE: Portable upright AP view of the chest was obtained. COMPARISON: 11/09/2019. FINDINGS: Cardiomediastinal silhouette normal. No focal opacity. No large effusion or pneumothorax. Osseous structures normal. Upper abdomen normal. IMPRESSION: 1. No acute cardiopulmonary disease. ACT 112: Negative or not required by law. Electronically signed by: Travon Marroquin M.D. 11/20/2019 9:37 AM ECG Data Attestation: I personally reviewed and interpreted this ECG as follows: Indication: + chest pain and + syncope Rate (beats per minute): 59 Rhythm: + sinus bradycardia ECG Dilliner: + Normal ECG ST segments: + ST elevation (ST elevation septal and anterior leads. ) and + T-wave inversions (TWI lateral, septal and anterior leads. ) ECG Findings: + Q waves (Q waves in septal, anterior and high lateral leads. ) Comparison ECG Date: from (11/10/2019) Change: the following changes noted (TWI in lateral lead is new. ) Blood Pressure Blood Pressure Findings: Elevated blood pressure Blood Pressure Disposition: further management by hospitalist JOHNNIE Narrative Patient is a 39-year-old male with a complicated history who was seen here 09 October and transferred to [facility] for a STEMI. He re-presented here in early October and was found to have an LV thrombus was placed on additional anticoagulation along with right renal infarct. Patient was just [facility] and had a syncopal episode this morning. He notes is much more weaker. He has right lower quadrant pain which is been there since early October. IV was established blood work was obtained showed no significant leukocytosis or anemia. INR was subtherapeutic at 1.8. BMP was unremarkable. Bilirubin was normal. LFTs including AST and ALT were trending up. Troponin was detectable, would expect at this point that it would be negative although with the left ventricle thrombus this could be placing remaining strain on the heart; with resolution of thrombus to question if this is trending downward trending up. Also could be new ischemia? Lipase was normal. CT head was negative. Evolving right renal infarct. CXR unremarkable. Case discussed with the hospitalist. Patient will was made for further work-up. Chest pain-free. EKG was nondiagnostic. Impression & Plan Syncope, Left ventricular thrombus, Elevated troponin, Transaminitis, Renal infarct, Ischemic cardiomyopathy Discharge Plan Visit Data *Final* Discharge Date/Time: 11/20/19 11:29 Chief Complaint: Illness Other Complaint: Dizziness ED Provider: Jere Bansal ED Midlevel Provider: Mike Green Discharge Problem: Syncope, Left ventricular thrombus, Elevated troponin, Transaminitis, Renal infarct, Ischemic cardiomyopathy Patient Disposition: Admitted As Inpatient Discharge Instructions Interventions: ED Discharge Assessment Last Done: 11/20/19 11:29 Discharge Problem: Syncope Qualifiers: Syncope type: unspecified Qualified Code(s): R55 - Syncope and collapse The scribe's documentation has been prepared under my direction and personally reviewed by me in its entirety. I confirm that the note above accurately reflects all work, treatment, procedures, and medical decision making performed by me.
--- NOTE | 2019-11-20 15:34 | Gastrointestinal Consultation ---
Date of Consultation November 20, 2019 Assessment & Plan (1) Transaminitis: Suggested to DR Urias do mesenteric and portal venous system duplex u/s which are ordered Because of ongoing renal infarcts, I am wondering about ischemic liver from mesenteric etiology. Portal venous system clots can also cause liver issues.. Ischemic liver can also be from low flow state that caused syncope. Await remaining liver serologies as well. Follow LFTS daily. Continue to hold Lipitor fhx of UC--no clinical history of this. Await ASCA and ANCA labs. RLQ pain--presumably explained by evolving renal infarcts. History of Present Illness Reason for Consultation: elevated LFTs Requesting Physician: Dr Jackson Urias Attending Physician: Jackson Urias, DO History of Present Illness CC elevated LFTs HPI [place] who had a heart attack on 10[place]30 and was transferred to [facility] where he had a stent placed. He presented back on 11/[address] elevation transmural ID in the anterolateral leads with elevated troponins. The patient was found to have 2 thrombi in the left ventricle and was started on IV heparin. He also was found on scans to have an infarct in the right kidney consistent with an embolized thrombus. Pt seen in consult during that admission that ended yesterday. Pt was seen for elevated LFTs. He has fhx of UC with cirrhosis secondary to that. Noted liver normal on u/s and CT last admit. LFTs done 10/30/19 TB 1.5 and others normal. During last admit the TB resolved but transaminases were increasing. Lipitor was suspected as causative agent so that was stopped. AST peaked at 260 on 11/15/19 and ALT peaked at 324. They were overall trending down and patient DCed yesterday. Serologies ordered last admit that were back included : Fe sat low so no hemochormatosis, Hep A IgM and IgG neg, hep B sAg and Ab neg, HIV neg, total IgA normal, hep C Ab neg. Other liver serologies ordered and still pending are alpha 1 AT, TTG, ceruloplasmin, RODERICK. ANCA and ASCA pending for fhx of UC. This am patient had CP and syncopal episode. He states RLQ pain about the same as during last admit presumably from renal infarct. NO RUQ pain. CT a/p on admit progressing/evolving renal infarcts of right kidney and liver normal. LFTS this am AST 266 and ALT 467 worse than peak. Troponin elevated 0.087. INR elevated but on coumadin. fhx of UC--no symptoms to suggest patient has disease. IBD serologies are pending. Allergies Allergy/AdvReac Type Severity Reaction Status Date / Time No Known Allergies Allergy Unverified 11/20/19 09:01 Home Medications Home Medications Medication Instructions Recorded Confirmed Type aspirin [Aspir-81] 81 mg PO QAM 11/07/19 11/20/19 History clopidogrel [Plavix] 75 mg PO QAM 11/07/19 11/20/19 History metoprolol succinate [Toprol XL] 25 mg PO BID 11/12/19 11/20/19 History atorvastatin 80 mg PO HS 11/20/19 11/20/19 History enoxaparin [Lovenox] 111 mg SUBCUT BID 11/20/19 11/20/19 History warfarin [Coumadin] 8 mg PO HS 11/20/19 11/20/19 History Patient History Medical History Abnormal EKG Acute anterior wall ID Acute ID, lateral wall (Inactive) CAD (coronary artery disease), [facility] coronary artery Chest pain (Inactive) Elevated troponin Surgical History H/O cardiac catheterization Hx of heart artery stent Family History Other No pertinent family history in first degree relatives Social History Preferred Language: Welsh Communication Ability: Effective 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 Beliefs That Will Affect Care: None Current Living Situation: Other Current Living Situation Comment: [place] Other Information That Helps Us Care for You: No Feels Safe at Home: Yes Safety Concerns: Feels Safe At This Time Smoking Status: Never smoker Do You Dip or Chew Tobacco: No ; Second Hand Exposure: No ; Tobacco Cessation Education Requested by Patient: No Hx Alcohol Use: No Hx Substance Use: No Review of Systems Review of Systems: All systems reviewed & are unremarkable except as noted in HPI & below Physical Exam Constitutional: WD/WN, vitals as above Eyes: PERRL, conjunctivae normal, anicteric sclerae Neck: normal visual inspection and trachea midline Respiratory: normal respiratory effort, lungs clear to auscultation Cardiovascular: RRR, no murmur, no edema Gastrointestinal (Abdomen): pos bs, soft, mild RLQ guarding but no rebound, Neurologic: PERRL, EOMI, accommodation nl, no face palsy, no dysarthria Psychiatric: A+Ox3, euthymic affect Results & Data Vital Signs (Past 12 Hours) Vital Signs Temp Pulse Pulse Pulse Resp BP BP 11/20/19 15:19 36.5 C 98 H 16 101/67 11/20/19 14:56 53 L 11/20/19 11:52 37 C 57 L 16 116/77 11/20/19 11:00 55 L 16 116/64 11/20/19 10:11 54 L 16 116/69 11/20/19 08:46 37.0 C 60 16 123/88 Pulse Ox 11/20/19 15:19 98 11/20/19 14:56 11/20/19 11:52 100 11/20/19 11:00 11/20/19 10:11 99 11/20/19 08:46 100
[2019-11-20] MEDS: WARFARIN SOD 4 MG TAB PO SCH (15:47)
[2019-11-20 17:24] LABS: Appearance Urine Clear (Clear); Bacteria Urine Automated Negative (Negative); Bilirubin Urine Negative (Negative); Blood Urine 3+ (Negative); Color Urine Red; Glucose Urine UA Negative (Negative); Ketones Urine Negative (Negative); Leukocyte Esterase Urine Trace (Negative); Nitrite Urine Negative (Negative); Protein Urine 2+ (Negative); RBC Urine Automated >30 /hpf (0-4); Specific Gravity Urine 1.016 (1.000-1.030); Urobilinogen Urine Negative (Negative)
--- NOTE | 2019-11-20 20:48 | Ultrasound Report ---
Study: Duplex mesentery arterial Doppler HISTORY: Pain. FINDINGS: Normal study. Antegrade flow is present in the visualized vessels. IMPRESSION: Normal study. Electronically signed by: Varun Preciado M.D. 11/20/2019 8:47 PM
--- NOTE | 2019-11-20 20:49 | Ultrasound Report ---
Study: Ultrasound duplex portal and hepatic veins HISTORY: Cardiac thrombus. Abnormal liver function test FINDINGS: All images vessels are patent. Flow is antegrade. There is no evidence for thrombus formati on. IMPRESSION: Normal study. Electronically signed by: Varun Preciado M.D. 11/20/2019 8:48 PM
[2019-11-20] MEDS: ENOXAPARIN INJ 120 MG/0.8 ML SYR SQ SCH (20:50)
--- NOTE | 2019-11-20 20:51 | Ultrasound Report ---
US abdomen complete HISTORY: Elevated liver function tests elevated LFT. COMPARISON: None. FINDINGS: Pancreas: The pancreas demonstrates a normal echotexture. Liver: Unremarkable. Gallbladder: No gallbladder wall thickening. No gallstones. CBD: 5 mm Kidneys: No hydronephrosis. Spleen: Normal in size. Aorta: Normal in caliber. IVC: Patent. IMPRESSION: No acute process. ACT 112: Negative or not required by law. The above report was generated using voice recognition software. It may contain grammatical, syntax or spelling errors. Electronically signed by: Varun Preciado M.D. 11/20/2019 8:50 PM
--- NOTE | 2019-11-20 22:27 | Electrocardiogram Report ---
Test Reason : Blood Pressure : / mmHG Vent. Rate : 059 BPM Atrial Rate : 059 BPM P-R Int : 154 ms QRS Dur : 082 ms QT Int : 402 ms P-R-T Axes : 059 147 115 degrees QTc Int : 397 ms Sinus bradycardia with sinus arrhythmia Low voltage QRS Anterior infarct Lateral infarct Abnormal ECG When compared with ECG of 10-NOV-2019 11:12, T wave inversion more evident in Anterior leads Confirmed by Roni Ramirez ([id number]) on 11/20/2019 10:27:56 PM Referred By: [facility] Confirmed By:Roni Ramirez
--- NOTE | 2019-11-20 22:30 | Electrocardiogram Report ---
Test Reason : Blood Pressure : / mmHG Vent. Rate : 062 BPM Atrial Rate : 062 BPM P-R Int : 150 ms QRS Dur : 074 ms QT Int : 426 ms P-R-T Axes : 064 123 125 degrees QTc Int : 432 ms Normal sinus rhythm Low voltage QRS Anterior infarct Lateral infarct Abnormal ECG When compared with ECG of 20-NOV-2019 08:42, No significant change was found Confirmed by Roni Ramirez ([id number]) on 11/20/2019 10:30:18 PM Referred By: [facility] Confirmed By:Roni Ramirez
[2019-11-21 07:26] LABS: Hemoglobin 13.6 g/dL (14.0-18.0); Mean Corpuscular Hemoglobin 28.6 pg (25-34); Mean Corpuscular Hgb Conc 33.2 g/dL (32-36); Mean Corpuscular Volume 86.1 fL (80-100); Mean Platelet Volume 9.2 fL (7.4-10.4); Platelet Count 478 K/uL (130-400); RDW Coefficient of Variation 12.4 % (11.5-14.5); RDW Standard Deviation 39.3 fL (36.4-46.3); Red Blood Count 4.76 M/uL (4.7-6.1); White Blood Count 6.37 K/uL (4.8-10.8)
[2019-11-21 07:38] LABS: INR 2.1 (0.9-1.1); Prothrombin Time 20.1 Seconds (9.0-12.0)
[2019-11-21 08:02] LABS: Albumin Level 2.5 gm/dl (3.4-5.0); BUN Creatinine Ratio 11.2 (10-20); Creatinine Clr Calc Pharmacy 128.7 ml/min; Est GFR (African American) 113.7; Est GFR (Non-African American) 98.1; Potassium 4.5 mmol/L (3.5-5.1)
[2019-11-21 08:05] LABS: Albumin Globulin Ratio 0.6 (0.9-2); Bilirubin,Total 0.5 mg/dl (0.2-1); Globulin 4.5 gm/dl (2.5-4.0)
[2019-11-21] MEDS: ASPIRIN 81 MG ECTAB PO SCH (08:17)
[2019-11-21] MEDS: CLOPIDOGREL BISULFATE 75 MG TAB PO SCH (08:17)
[2019-11-21] MEDS: ENOXAPARIN INJ 120 MG/0.8 ML SYR SQ SCH ×2 (08:17→20:59)
--- NOTE | 2019-11-21 12:14 | Progress Note ---
DATE: 11/21/2019 SUBJECTIVE: The patient still has a little bit of right-sided mid abdominal pain, probably from his infarcted lower pole of the right kidney. His LFTs continue to show elevated AST, ALT. The bilirubin and alkaline phosphatase are normal. His troponin is also still slightly elevated. His hepatitis A, B and C serologies have returned to normal. His iron levels are actually a little bit low, ruling out hemochromatosis. The other blood tests for other potential causes of liver disease have not returned yet. He did have a mesenteric ultrasound to check the blood flow to and from his liver, which returned normal. PHYSICAL EXAMINATION: The patient appears in no acute distress. Blood pressure is 121/80, pulse 74, respirations 18, temperature is 37, room air saturation 98%. IMPRESSION: The patient continues to have elevated aminotransferases, the etiology of which is unclear, possibly he had some micro infarctions or ischemic low blood flow state to his liver causing these elevations. There is certainly nothing treatable at this point in time. We are still waiting for additional blood tests to return. Obviously, a liver biopsy would be potentially helpful in this situation, but contraindicated while he is on blood thinners. At this point, I would just continue to follow the patient and trend his liver profile.
--- NOTE | 2019-11-21 13:29 | Hospitalist Progress Note ---
Date of Service November 21, 2019 Assessment & Plan (1) Elevated LFTs: AST and ALT remain quite high, unclear etiology at this time on review of record, they were elevated the entire stay, 12 days, but they were never as high as they are now bili and alk phos remain normal discussed with Dr. Tello, no clear etiology at this time follow up on serology studies could consider liver biopsy in the future but currently would not perform while anticoagulated abdominal US, portal vein doppler, mesenteric doppler no evidence of portal vein thrombosis no mesenteric stenosis no evidence of liver infarcts on CT abdomen/pelvis hepatitis B/C was negative last admission statin has been on hold for over a week, if statin therapy was the etiology would think the LFT would have normalized repeat CMP in the morning (2) Abdominal pain: mostly RLQ pain, much better today, pain likely related to renal infarct improved appetite today CT abdomen/pelvis: no signs of appendicitis does have worsening renal infarcts which could be the source of pain, es pecially given the lack of other etiology (3) Renal infarct: getting worse on CT, unclear why as he has been on anticoagulation per report, cannot r/o super imposed pyelonephritis no fever, WBC normal, only 5-10 WBC on UA no other clinical signs to suggest pyelonephritis, hold on antibiotics for now (4) Left ventricular thrombus: no current evidence on repeat CT today continue Lovenox and anticoagulation (5) Ischemic cardiomyopathy: will hold metoprolol as his blood pressure is low normal and HR in the 50- 60's give IV fluids as he appears dehydrated continue aspirin and Plavix Subjective patient feeling a little better, eating more, less abdominal pain AST and ALT still both quite elevated, no real change other labs are normal serology studies for autoimmune diseases drawn last admission still pending discussed with Dr. Tello, no clear etiology for the transaminitis for time being we will just monitor encouraged patient to get OOB twice a day Review of Systems Review of Systems: All systems reviewed & are unremarkable except as noted in HPI & below Gastrointestinal: + abdominal pain; no nausea, no vomiting, no constipation and no diarrhea/loose stools Genitourinary: + hematuria; no dysuria and no difficulty urinating Physical Exam Constitutional: WD/WN, vitals as above + lethargic; not in distress Eyes: PERRL, conjunctivae normal, anicteric sclerae ENMT: external ear and nose normal, oropharynx normal Neck: trachea midline, no thyromegaly Respiratory: normal respiratory effort, lungs clear to auscultation Cardiovascular: Rate/Rhythm: regular rhythm and + bradycardic Heart Sounds: normal S1 and normal S2; no murmur Extremities: normal capillary refill; no edema Gastrointestinal (Abdomen): Inspection/Auscultation: abdomen normal to inspection and normal bowel sounds; abdomen not distended Percussion/Palpation: abdomen soft; abdomen nontender, no guarding, abdomen not rigid and no hepatosplenomegaly Musculoskeletal: no cyanosis or clubbing, extremities motor strength 5/5 Skin: no rashes, warm and dry Neurologic: patellar DTR's 2+ bilat, sensation intact and PERRL, EOMI, accommodation nl, no face palsy, no dysarthria Psychiatric: A+Ox3, euthymic affect Lymphatic: no cervical or axillary lymphadenopathy Results & Data Vital Signs (Past 12 Hours) Vital Signs Temp Pulse Pulse Resp BP Pulse Ox 11/21/19 10:58 37.0 C 74 18 121/80 98 11/21/19 07:07 51 L 11/21/19 06:19 36.4 C L 59 L 19 97/62 L 99 11/21/19 03:43 36.8 C 53 L 20 111/70 98 11/21/19 01:49 54 L Laboratory Results Laboratory Results - last 24 hr 11/20/19 11/21/19 11/21/19 16:48 06:52 06:52 WBC 6.37 RBC 4.76 Hgb 13.6 L Hct 41.0 L MCV 86.1 MCH 28.6 MCHC 33.2 RDW Std Deviation 39.3 RDW Coeff of Nic 12.4 Plt Count 478 H MPV 9.2 PT INR Sodium 137 Potassium 4.5 Chloride 107 Carbon Dioxide 26 Anion Gap 4.0 BUN 11 Creatinine 0.98 Est Cr Clr Drug Dosing 128.7 Est GFR ( Amer) 113.7 Est GFR (Non-Af Amer) 98.1 BUN/Creatinine Ratio 11.2 Glucose 84 Calcium 9.0 Total Bilirubin 0.5 AST 274 H ALT 494 H Alkaline Phosphatase 73 Total Protein 7.0 Albumin 2.5 L Globulin 4.5 H Albumin/Globulin Ratio 0.6 L Urine Color Red Urine Appearance Clear Urine pH 6.0 Ur Specific [place] 1.016 Urine Protein 2+ H Urine Glucose (UA) Negative Urine Ketones Negative Urine Blood 3+ H Urine Nitrite Negative Urine Bilirubin Negative Urine Urobilinogen Negative Ur Leukocyte Esterase Trace H Urine WBC (Auto) 5-10 H Urine RBC (Auto) >30 H U Hyaline Cast (Auto) 1-5 U Epithel Cells (Auto) 5-10 H Urine Bacteria (Auto) Negative 11/21/19 06:52 WBC RBC Hgb Hct MCV MCH MCHC RDW Std Deviation RDW Coeff of Nic Plt Count MPV PT 20.1 H INR 2.1 H Sodium Potassium Chloride Carbon Dioxide Anion Gap BUN Creatinine Est Cr Clr Drug Dosing Est GFR ( Amer) Est GFR (Non-Af Amer) BUN/Creatinine Ratio Glucose Calcium Total Bilirubin AST ALT Alkaline Phosphatase Total Protein Albumin Globulin Albumin/Globulin Ratio Urine Color Urine Appearance Urine pH Ur Specific [place] Urine Protein Urine Glucose (UA) Urine Ketones Urine Blood Urine Nitrite Urine Bilirubin Urine Urobilinogen Ur Leukocyte Esterase Urine WBC (Auto) Urine RBC (Auto) U Hyaline Cast (Auto) U Epithel Cells (Auto) Urine Bacteria (Auto) Medications Administered Current Inpatient Medications Aspirin (Ecotrin Ectab) 81 mg PO QAM [facility] Stop: 12/21/19 08:59 Last Admin: 11/21/19 08:17 Dose: 81 mg Documented by: Clopidogrel Bisulfate (Plavix) 75 mg PO QAM [facility] Stop: 12/21/19 08:59 Last Admin: 11/21/19 08:17 Dose: 75 mg Documented by: Enoxaparin Sodium (Lovenox) 111 mg SQ BID [facility] Stop: 12/20/19 20:59 Last Admin: 11/21/19 08:17 Dose: 111 mg Documented by: Ioversol (Optiray 320 100ml) 93 ml IV ONCE PRN PRN Reason: Interaction Checking Stop: 11/24/19 10:32 Last Admin: 11/20/19 10:34 Dose: 93 ml Documented by: Ondansetron HCl (Zofran) 4 mg IV Q6H PRN PRN Reason: Nausea Stop: 12/20/19 11:49 Warfarin Sodium (Coumadin) 8 mg PO DAILY@1600 [facility] Stop: 12/20/19 15:59 Last Admin: 11/20/19 15:47 Dose: 8 mg Documented by: PG Care Time/CCT Total # of Minutes Spent Total Time Spent with Patient: Total time spent is greater than 50% in coordination of care (as documented) at patient's floor/unit and/or counseling patient:
[2019-11-21] MEDS: WARFARIN SOD 4 MG TAB PO SCH (16:30)
[2019-11-22 05:57] LABS: Basophils # (auto) 0.02 K/uL (0-0.2); Basophils % (auto) 0.3 %; Eosinophils # (auto) 0.13 K/uL (0-0.5); Hematocrit (blood only) 39.1 % (42-52); Hemoglobin 12.9 g/dL (14.0-18.0); Immature Granulocytes # (auto) 0.03 K/uL (0.00-0.02); Immature Granulocytes % (auto) 0.5 %; Lymphocytes # (auto) 2.24 K/uL (1.2-3.4); Lymphocytes % (auto) 35.2 %; Mean Corpuscular Hemoglobin 28.3 pg (25-34); Mean Corpuscular Volume 85.7 fL (80-100); Mean Platelet Volume 9.1 fL (7.4-10.4); Monocytes # (auto) 0.48 K/uL (0.11-0.59); Monocytes % (auto) 7.5 %; Neutrophils # (auto) 3.46 K/uL (1.4-6.5); Neutrophils % (auto) 54.5 %; Platelet Count 475 K/uL (130-400); RDW Coefficient of Variation 12.5 % (11.5-14.5); RDW Standard Deviation 38.5 fL (36.4-46.3); Red Blood Count 4.56 M/uL (4.7-6.1); White Blood Count 6.36 K/uL (4.8-10.8)
[2019-11-22 06:09] LABS: INR 2.2 (0.9-1.1); Prothrombin Time 21.5 Seconds (9.0-12.0)
[2019-11-22 06:32] LABS: Albumin Level 2.4 gm/dl (3.4-5.0); BUN Creatinine Ratio 11.9 (10-20); Calcium 8.4 mg/dl (8.5-10.1); Creatinine Clr Calc Pharmacy 141.7 ml/min; Est GFR (African American) 126.6; Est GFR (Non-African American) 109.2; Potassium 4.3 mmol/L (3.5-5.1)
[2019-11-22 06:34] LABS: Albumin Globulin Ratio 0.6 (0.9-2); Bilirubin,Total 0.5 mg/dl (0.2-1); Globulin 4.2 gm/dl (2.5-4.0); Total Protein 6.6 gm/dl (6.4-8.2)
[2019-11-22] MEDS: ASPIRIN 81 MG ECTAB PO SCH (08:11)
[2019-11-22] MEDS: CLOPIDOGREL BISULFATE 75 MG TAB PO SCH (08:11)
[2019-11-22] MEDS ORDERED: TRAMADOL HCL 50 MG TABLET PO PRN (11:15)
--- NOTE | 2019-11-22 13:01 | Hospitalist Progress Note ---
Date of Service November 22, 2019 Assessment & Plan (1) Elevated LFTs: AST and ALT trending down very slightly will repeat tomorrow discussed with Dr. Tello, no clear etiology at this time follow up on serology studies (still pending) could consider liver biopsy in the future but currently would not perform while anticoagulated abdominal US, portal vein doppler, mesenteric doppler no evidence of portal vein thrombosis no mesenteric stenosis no evidence of liver infarcts on CT abdomen/pelvis certainly there could be some microscopic infarcts that are not seen hepatitis B/C was negative last admission statin has been on hold for over a week, if statin therapy was the etiology w ould think the LFT would have normalized (2) Abdominal pain: mostly RLQ pain, much better today, pain likely related to renal infarct will use Ultram PRN improved appetite again today CT abdomen/pelvis: no signs of appendicitis does have worsening renal infarcts which could be the source of pain, especially given the lack of other etiology (3) Renal infarct: getting worse on CT, unclear why as he has been on anticoagulation per report, cannot r/o super imposed pyelonephritis no fever, WBC normal, only 5-10 WBC on UA no other clinical signs to suggest pyelonephritis, hold on antibiotics for now (4) Left ventricular thrombus: no current evidence on repeat CT INR is 2.2, will stop Lovenox and just use Coumadin 8mg daily (5) Ischemic cardiomyopathy: continue to hold metoprolol as his blood pressure is low normal and HR in the 50-60's on admission BP is 100's systolic and HR is up to 75 continue aspirin and Plavix Subjective patient still with some dysuria, lower abdominal discomfort eating better today, no nausea reviewed labs, despite hematuria his Hb is stable at 12.9 INR is 2.2, will stop Lovenox AST down to 164 and ALT down to 417 bili and alk phos continue to be normal checked on serology results, still pending encouraged patient to get OOB to a chair a few times a day Review of Systems Review of Systems: All systems reviewed & are unremarkable except as noted in HPI & below Gastrointestinal: + abdominal pain; no nausea, no vomiting, no constipation and no diarrhea/loose stools Genitourinary: + dysuria, + hematuria and + flank pain (right); no difficulty urinating Physical Exam Constitutional: WD/WN, vitals as above not in distress Eyes: PERRL, conjunctivae normal, anicteric sclerae ENMT: external ear and nose normal, oropharynx normal Neck: trachea midline, no thyromegaly Respiratory: normal respiratory effort, lungs clear to auscultation Cardiovascular: Rate/Rhythm: regular rhythm Heart Sounds: normal S1 and normal S2; no murmur Extremities: normal capillary refill; no edema Gastrointestinal (Abdomen): Inspection/Auscultation: abdomen normal to inspection and normal bowel sounds; abdomen not distended Percussion/Palpation: abdomen soft; abdomen nontender, no guarding, abdomen not rigid and no hepatosplenomegaly Musculoskeletal: no cyanosis or clubbing, extremities motor strength 5/5 Skin: no rashes, warm and dry Neurologic: patellar DTR's 2+ bilat, sensation intact and PERRL, EOMI, accommodation nl, no face palsy, no dysarthria Psychiatric: A+Ox3, euthymic affect Lymphatic: no cervical or axillary lymphadenopathy Results & Data Vital Signs (Past 12 Hours) Vital Signs Temp Pulse Resp BP Pulse Ox 11/22/19 07:15 36.9 C 75 18 104/69 99 Laboratory Results Laboratory Results - last 24 hr 11/22/19 11/22/19 11/22/19 05:40 05:40 05:40 WBC 6.36 RBC 4.56 L Hgb 12.9 L Hct 39.1 L MCV 85.7 MCH 28.3 MCHC 33.0 RDW Std Deviation 38.5 RDW Coeff of Nic 12.5 Plt Count 475 H MPV 9.1 Immature Gran % (Auto) 0.5 Neut % (Auto) 54.5 Lymph % (Auto) 35.2 [place] % (Auto) 7.5 Eos % (Auto) 2.0 Baso % (Auto) 0.3 Immature Gran # (Auto) 0.03 H Neut # (Auto) 3.46 Lymph # (Auto) 2.24 [place] # (Auto) 0.48 Eos # (Auto) 0.13 Baso # (Auto) 0.02 PT 21.5 H INR 2.2 H Sodium 139 Potassium 4.3 Chloride 109 H Carbon Dioxide 26 Anion Gap 4.0 BUN 11 Creatinine 0.89 Est Cr Clr Drug Dosing 141.7 Est GFR ( Amer) 126.6 Est GFR (Non-Af Amer) 109.2 BUN/Creatinine Ratio 11.9 Glucose 91 Calcium 8.4 L Total Bilirubin 0.5 AST 164 H ALT 417 H Alkaline Phosphatase 69 Total Protein 6.6 Albumin 2.4 L Globulin 4.2 H Albumin/Globulin Ratio 0.6 L Triglycerides 52 Cholesterol 126 LDL Cholesterol, Calc 83 VLDL Cholesterol, Calc 10 HDL Cholesterol 33 Cholesterol/HDL Ratio 4 Medications Administered Current Inpatient Medications Aspirin (Ecotrin Ectab) 81 mg PO [facility] Stop: 12/21/19 08:59 Last Admin: 11/22/19 08:11 Dose: 81 mg Documented by: Clopidogrel Bisulfate (Plavix) 75 mg PO QAM [facility] Stop: 12/21/19 08:59 Last Admin: 11/22/19 08:11 Dose: 75 mg Documented by: Ioversol (Optiray 320 100ml) 93 ml IV ONCE PRN PRN Reason: Interaction Checking Stop: 11/24/19 10:32 Last Admin: 11/20/19 10:34 Dose: 93 ml Documented by: Ondansetron HCl (Zofran) 4 mg IV Q6H PRN PRN Reason: Nausea Stop: 12/20/19 11:49 Tramadol HCl (Ultram) 50 mg PO Q4H PRN PRN Reason: Pain Stop: 12/22/19 11:14 Warfarin Sodium (Coumadin) 8 mg PO DAILY@1600 [facility] Stop: 12/20/19 15:59 Last Admin: 11/21/19 16:30 Dose: 8 mg Documented by: PG Care Time/CCT Total # of Minutes Spent Total Time Spent with Patient: Total time spent is greater than 50% in coordination of care (as documented) at patient's floor/unit and/or counseling patient: Coding Level of Care Code 12303 Subseq Hosp Care Lvl 2 Diagnoses Elevated LFTs R94.5 Abdominal pain R10.9 Renal infarct N28.0 Left ventricular thrombus I51.3 Ischemic cardiomyopathy I25.5
[2019-11-22] MEDS: WARFARIN SOD 4 MG TAB PO SCH (16:18)
[2019-11-23 06:09] LABS: Basophils # (auto) 0.01 K/uL (0-0.2); Basophils % (auto) 0.2 %; Eosinophils # (auto) 0.19 K/uL (0-0.5); Eosinophils % (auto) 3.4 %; Hematocrit (blood only) 38.6 % (42-52); Hemoglobin 12.8 g/dL (14.0-18.0); Immature Granulocytes # (auto) 0.03 K/uL (0.00-0.02); Immature Granulocytes % (auto) 0.5 %; Lymphocytes # (auto) 2.26 K/uL (1.2-3.4); Lymphocytes % (auto) 40.6 %; Mean Corpuscular Hemoglobin 28.6 pg (25-34); Mean Corpuscular Hgb Conc 33.2 g/dL (32-36); Mean Corpuscular Volume 86.2 fL (80-100); Mean Platelet Volume 8.9 fL (7.4-10.4); Monocytes # (auto) 0.51 K/uL (0.11-0.59); Monocytes % (auto) 9.2 %; Neutrophils # (auto) 2.57 K/uL (1.4-6.5); Neutrophils % (auto) 46.1 %; Platelet Count 471 K/uL (130-400); RDW Coefficient of Variation 12.7 % (11.5-14.5); RDW Standard Deviation 40.1 fL (36.4-46.3); Red Blood Count 4.48 M/uL (4.7-6.1); White Blood Count 5.57 K/uL (4.8-10.8)
[2019-11-23 06:18] LABS: INR 1.9 (0.9-1.1); Prothrombin Time 18.5 Seconds (9.0-12.0)
[2019-11-23 06:45] LABS: Albumin Level 2.5 gm/dl (3.4-5.0); BUN Creatinine Ratio 10.4 (10-20); Calcium 8.7 mg/dl (8.5-10.1); Creatinine Clr Calc Pharmacy 128.7 ml/min; Est GFR (African American) 113.7; Est GFR (Non-African American) 98.1; Potassium 4.3 mmol/L (3.5-5.1)
[2019-11-23 06:48] LABS: Albumin Globulin Ratio 0.6 (0.9-2); Bilirubin,Total 0.3 mg/dl (0.2-1); Globulin 4.2 gm/dl (2.5-4.0); Total Protein 6.7 gm/dl (6.4-8.2)
[2019-11-23] MEDS: ASPIRIN 81 MG ECTAB PO SCH (07:30)
[2019-11-23] MEDS: CLOPIDOGREL BISULFATE 75 MG TAB PO SCH (07:30)
--- NOTE | 2019-11-23 13:16 | Discharge Summary ---
Date of Service November 23, 2019 Admission HPI Per Admitting Provider 39 yo male who was just discharged yesterday after two week stay for renal infarction on the right, cardiac thrombus, recent IA and transaminitis returned to the hospital in less than 24 hours complaining of abdominal pain, poor appetite, nausea, weakness. He felt well yesterday, ate his entire lunch prior to discharge and was relieved that he was getting out of the hospital. The plan on discharge was to continue Lovenox every 12 hours, Coumadin for anticoagulation for a cardiac thrombus and embolic renal infarct. His AST and ALT were slightly high on discharge with plans to repeat in several days. He says that last evening he started to have worsening abdominal pain in the RLQ and RUQ. He did not have an appetite last night or this morning. He had a BM yesterday while in the hospital that was soft but formed. He never vomited but he did have some nausea. No chest pain or dyspnea. No fever or chills. He felt really fatigued and weak. He admitted that he was feeling weak prior to discharge but that was likely due to two weeks in the hospital, deconditioning. In the ED his BP was low normal and HR was in the 50-60's. No fever. WBC 6k, Hb 14. INR was 1.8. Cr 1.0 and electrolytes stable. AST up from yesterday at 266 and ALT up at 467. Trop was 0.087 which was actually improving, still coming down from his IA two weeks ago. UA had some blood, only 5-[address] head were normal. CT abdomen/pelvis shows worsening/progression of the right renal infarctions. No other abnormalities. Asked to admit patient due to his elevated liver enzymes, abdominal pain. Principal Diagnosis Transaminitis Discharge Exam Constitutional WD/WN, vitals as above not in distress Eyes PERRL, conjunctivae normal, anicteric sclerae ENMT external ear and nose normal, oropharynx normal Neck trachea midline, no thyromegaly Respiratory normal respiratory effort, lungs clear to auscultation Cardiovascular Rate/Rhythm: regular rhythm Heart Sounds: normal S1 and normal S2; no murmur Extremities: normal capillary refill; no edema Gastrointestinal (Abdomen) Inspection/Auscultation: abdomen normal to inspection and normal bowel sounds; abdomen not distended Percussion/Palpation: abdomen soft; abdomen nontender, no guarding, abdomen not rigid and no hepatosplenomegaly Musculoskeletal no cyanosis or clubbing, extremities motor strength 5/5 Skin no rashes, warm and dry Neurologic patellar DTR's 2+ bilat, sensation intact and PERRL, EOMI, accommodation nl, no face palsy, no dysarthria Psychiatric A+Ox3, euthymic affect Lymphatic no cervical or axillary lymphadenopathy Discharge Data Allergies Allergy/AdvReac Type Severity Reaction Status Date / Time No Known Allergies Allergy Unverified 11/20/19 09:01 Consultations 11/20/19 10:05 ED Decision to Admit Stat 11/20/19 11:50 Consult Gastroenterology Routine Ordered Studies 11/20/19 09:22 CT abd pelvis IV con only Stat 11/20/19 09:42 CT head/brain wo con Stat 11/20/19 11:50 US abdomen complete Stat 11/20/19 12:33 US duplex portal hepatic veins Urgent 11/20/19 12:41 US duplex mesenteric Urgent Hospital Course (1) Elevated LFTs: AST and ALT trending down AST down to 121 ALT down to [address] Tello ([facility]), no clear etiology at this time could be microinfarcts in the liver from cardiac thrombus, emboli serology studies are negative: RODERICK screen was positive, however P ANCA and C ANCA negative S cervasiae antibodies normal Tissue transglutamin IG normal Hepatitis A, B, C all negative could consider liver biopsy in the future but currently would not perform while anticoagulated abdominal US, portal vein doppler, mesenteric doppler no evidence of portal vein thrombosis no mesenteric stenosis no evidence of liver infarcts on CT abdomen/pelvis certainly there could be some microscopic infarcts that are not seen continue to hold statin therapy until LFT normalize repeat LFT in one week can refer to [facility] for routine follow up if they remain high, but there is nothing to specifically treat at this time (2) Abdominal pain: mostly RLQ pain, much better today, pain likely related to renal infarct will use Ultram PRN improved appetite again today CT abdomen/pelvis: no signs of appendicitis does have worsening renal infarcts which could be the source of pain, especially given the lack of other etiology (3) Renal infarct: getting worse on CT, unclear why as he has been on anticoagulation per report, cannot r/o super imposed pyelonephritis no fever, WBC normal, only 5-10 WBC on UA no other clinical signs to suggest pyelonephritis, hold on antibiotics for now (4) Left ventricular thrombus: no current evidence on repeat CT INR is 1.9 after being 2.2 the day before increase Coumadin to 10mg a day from 8mg a day follow INR and adjust Coumadin accordingly (5) Ischemic cardiomyopathy: continue to hold metoprolol as his blood pressure is low normal and HR in the 50-60's on admission BP is 100's systolic and HR is 60-70 continue aspirin and Plavix will continue to hold metoprolol on discharge as one of his main complaints is weakness Total Time Total Time Spent Total Time Spent (In Minutes): 33 minutes Total Time Includes: Examination of the Patient, Discharge Planning and Medication Reconciliation Discharge Plan Discharge Items [facility] Disposition: [facility] Reason For Visit: WEAKNESS, TRANSAMINITIS Discharge Diagnosis: Weakness Transaminitis, improving Condition on Discharge: Good Goals: improve strength and mobility continue to eat, stay well hydrated Activity: Resume your previous activity Non-emergency contact: Primary Care Provider Call non-emergency contact if: you have any medication questions, your symptoms worsen, your pain is worsening and you have a fever [facility] - Diet: Heart Healthy Add Attending Provider Instructions: Medications: - COUMADIN: dose increased to 10mg daily because INR was not quite therapeutic on 8mg continue to adjust based on INR at [facility] - ULTRAM: take as needed for pain associated with renal infarct - METOPROLOL: this medication was STOPPED because of low blood pressure and heart rate off of it for three days, blood pressure and heart rate have been stable would continue to hold indefinitely - ATORVASTATIN: resume once LFT normalize Transaminitis: unclear etiology per gastroenterology, however, it is nothing to essentially treat most likely cause is some microscopic liver infarcts caused by the cardiac thrombus these are not evident on CT of the liver no evidence of portal vein thrombosis, no mesenteric ischemia seen on doppler serology studies still pending from prior admission bilirubin and alkaline phosphatase have always been normal so it rules out obstructive pathology recommend repeat LFT next week continue to hold statin until LFT normalize, then resume Lipitor Weakness: most likely etiology is deconditioning from hospitalization for 2-3 weeks stopped metoprolol as HR in the 50's and blood pressure low normal on admission metoprolol can lead to fatigue and weakness vitals stable for three days off of the metoprolol encourage patient to be up out of bed, ambulate more and more continue to stay well hydrated and well nourished Renal infarct, right kidney renal function normal, continues with hematuria which is normal for another week or so causing pain, use Ultram PRN no other etiology for abdominal pain on CT, no infection or inflammation seen Pending Studies at Discharge: No Stand-Alone Forms: [facility] Skilled Items Patient informed of condition?: Yes Discharge Level of Care: Other Communicable Disease: No Discharge Prognosis: Stable Lines: None Urinary Catheter: No Medications and DC Order Prescriptions: New tramadol 50 mg Tablet 50 mg PO Q4H PRN (Reason: pain) 20 Days Qty: 30 RF: 0 warfarin [Coumadin] 10 mg tablet 10 mg PO DAILY Qty: 30 RF: 0 Continued clopidogrel [Plavix] 75 mg Tablet 75 mg PO QAM RF: 0 aspirin [Aspir-81] 81 mg Tablet,Delayed Release (Dr/Ec) 81 mg PO QAM RF: 0 atorvastatin 80 mg Tablet 80 mg PO HS RF: 0 Discontinued metoprolol succinate [Toprol XL] 25 mg Tablet Extended Release 24 Hr 25 mg PO BID RF: 0 warfarin [Coumadin] 4 mg tablet 8 mg PO HS RF: 0 enoxaparin [Lovenox] 120 mg/0.8 mL syringe 111 mg subcut BID RF: 0 Discharge Orders: Discharge Order (Routine); Ordered 11/23/19 Ordered By: Jackson Urias Admission Data Admit Date/Time: 11/21/19 22:12 Attending Provider: Jackson Urias Admit Provider: Jackson Urias Primary Care Provider: Aleta GOODWIN Other Providers: Jackson Urias ; Bhaskar Mensah Other Interventions: Discharge Summary Assessment (RN) Last Done: 11/23/19 10:28 DC Date/Time DO NOT enter until pt leaves facility: 11/23/19 15:03 Coding Level of Care Code D/C Day Management >30 mins Diagnoses Elevated LFTs R94.5 Abdominal pain R10.9 Renal infarct N28.0 Left ventricular thrombus I51.3 Ischemic cardiomyopathy I25.5
== END 2019-11-23 15:03 | DRG 948 ==
LOC: 2W 08:37 → ED 08:37 → 2W 11:29 → 4W 11-21 23:34